=== PATIENT | female | born 1935 | race Caucasian/White ===

== ENCOUNTER 2019-02-13 00:19 | Outpatient (CLI) | payer MEDICARE, OTHER, SELFPAY ==
--- NOTE | 2019-02-13 14:00 | DI.US_ITS ---
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 On the right, there appears to be an internal carotid artery occlusion at the bifurcation. High velocity flow noted in external carotid artery. On the left, there is increased velocity at the distal internal carotid artery consistent with 50-60% luminal diameter stenosis. There is bilateral antegrade vertebral flow. CONCLUSION: Findings consistent with complete occlusion, right ICA, at its origin. A 50-60% luminal diameter stenosis, left ICA.
--- NOTE | 2019-02-13 14:15 | MERGE_ITS ---
*[facility]* *[facility]* [address] [place] [address] Date of study: 02/13/2019 Transthoracic Echocardiography M-mode, complete 2D, complete spectral Doppler, and color Doppler *STUDY CONCLUSIONS* Summary: 1. Left ventricle: The cavity size was normal. Wall thickness was increased in a pattern of moderate LVH. There was moderate asymmetric hypertrophy of the septum. Systolic function was normal. The estimated ejection fraction was 60-65%. There was no dynamic obstruction. Wall motion was normal; there were no regional wall motion abnormalities. Findings consistent with diastolic dysfunction. 2. Aortic valve: There was moderate stenosis. There was mild regurgitation. Peak velocity (S): 3.4m/sec. Mean gradient (S): 26.2mm Hg. Valve area (VTI): 1.4cm^2. 3. Mitral valve: Severely calcified annulus. Moderately thickened leaflets. Mobility was restricted. The findings are consistent with mild stenosis. Mean gradient (D): 4.5mm Hg at 70 bpm.. 4. Right ventricle: The cavity size was normal. Wall thickness was normal. Systolic function was normal. 5. Tricuspid valve: There was mild-moderate regurgitation. 6. Pulmonary arteries: Pulmonary systolic pressure was moderately increased, in the range of 45mm Hg to 50mm Hg. *PATIENT PRESENTATION* Height: 157.5cm ((62in) ) S/D Pressure: 193 / 82 Weight: 93.9kg ((206.6lb) ) BSA: 2.07m^2 Test start time: 02:30 PM. Test stop time: 03:30 PM. PERFORMING Unknown PERFORMING 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 This study was interpreted by [facility]. Pertinent images and digital data are archived for permanent storage and are available for subsequent review. No prior study was available for comparison. Study status: Routine. Transthoracic echocardiography. M-mode, complete 2D, complete spectral Doppler, and color Doppler. A Transthoracic Echocardiogram was performed. Scanning was performed from the parasternal, apical, subcostal, and suprasternal notch acoustic windows. Images were obtained using an [id number] cardiac ultrasound machine. Image quality was adequate. Study completion: The patient tolerated the procedure well. There were no complications. History: PMH: Hypertensive disorder i10. *CARDIAC ANATOMY* Left ventricle: The cavity size was normal. Wall thickness was increased in a pattern of moderate LVH. There was moderate asymmetric hypertrophy of the septum. Systolic function was normal. The estimated ejection fraction was 60-65%. There was no dynamic obstruction. Wall motion was normal; there were no regional wall motion abnormalities. Findings consistent with diastolic dysfunction. Aortic valve: Trileaflet; moderately thickened, moderately calcified leaflets. Valve mobility was restricted. Doppler: There was moderate stenosis. There was mild regurgitation. VTI ratio of LVOT to aortic valve: 0.5. Valve area (VTI): 1.4cm^2. Indexed valve area (VTI): 0.7cm^2/m^2. Peak velocity ratio of LVOT to aortic valve: 0.42. Valve area (Vmax): 1.1cm^2. Indexed valve area (Vmax): 0.5cm^2/m^2. Mean velocity ratio of LVOT to aortic valve: 0.48. Valve area (Vmean): 1.3cm^2. Indexed valve area (Vmean): 0.6cm^2/m^2. Mean gradient (S): 26.2mm Hg. Peak gradient (S): 47.3mm Hg. Aorta: Aortic root: The aortic root was normal in size. Ascending aorta: The ascending aorta was normal in size. Mitral valve: Severely calcified annulus. Moderately thickened leaflets. Mobility was restricted. Doppler: The findings are consistent with mild stenosis. There was trivial regurgitation. Valve area by pressure half-time: 2.5cm^2. Indexed valve area by pressure half-time: 1.2cm^2/m^2. Mean gradient (D): 4.5mm Hg at 70 bpm.. Left atrium: The atrium was normal in size. Right ventricle: The cavity size was normal. Wall thickness was normal. Systolic function was normal. Pulmonic valve: Structurally normal valve. Doppler: Transvalvular velocity was within the normal range. There was no evidence for stenosis. There was trivial regurgitation. Tricuspid valve: Structurally normal valve. Doppler: Transvalvular velocity was within the normal range. There was no evidence for stenosis. There was mild-moderate regurgitation. Pulmonary artery: Pulmonary systolic pressure was moderately increased, in the range of 45mm Hg to 50mm Hg. Right atrium: The atrium was normal in size. Pericardium: There was no pericardial effusion. Systemic veins: Inferior vena cava: Well visualized. The vessel was patent and normal in size. The respirophasic diameter changes were in the normal range (greater than or equal to 50%). Baseline ECG: Normal sinus rhythm. Measurements Left ventricle Value Reference LV ID, ED, PLAX 4.6 cm 3.5 - 6.0 LV ID, ES, PLAX 2.5 cm 2.1 - 4.0 LV PW thickness, ED, PLAX 1.2 cm LV end-diastolic volume, 1-p A2C 71 ml LV ejection fraction, 1-p A2C 66 % LV end-diastolic volume, 1-p A4C 68 ml LV ejection fraction, 1-p A4C 68 % LV e', lateral 0.055 m/sec LV E/e', lateral 19 LV e', medial 0.043 m/sec LV E/e', medial 24 LV e', average 0.049 m/sec LV E/e', average 21 Ventricular septum Value Reference IVS thickness, ED, PLAX 1.5 cm LVOT Value Reference LVOT ID, A-P 1.9 cm LVOT area 2.7 cm^2 LVOT peak velocity, S 1.43 m/sec LVOT mean velocity, S 1.18 m/sec LVOT VTI, S 39.2 cm LVOT peak gradient, S 8.2 mm Hg LVOT mean gradient, S 5.9 mm Hg Stroke volume (SV), LVOT DP 107 ml Stroke index (SV/bsa), LVOT DP 52 ml/m^2 Aortic valve Value Reference Aortic valve peak velocity, S 3.4 m/sec Aortic valve mean velocity, S 2.43 m/sec Aortic valve VTI, S 78.0 cm Aortic mean gradient, S 26.2 mm Hg Aortic peak gradient, S 47.3 mm Hg VTI ratio, LVOT/AV 0.5 Aortic valve area, VTI 1.4 cm^2 Velocity ratio, peak, LVOT/AV 0.42 Aortic valve area, peak velocity 1.1 cm^2 Velocity ratio, mean, LVOT/AV 0.48 Aortic valve area, mean velocity 1.3 cm^2 Aortic valve area/bsa, mean velocity 0.6 cm^2/m^2 Aortic regurg deceleration 421 cm/s^2 Aortic regurg pressure half-time 287 ms Aorta Value Reference Aortic root ID, ED 2.6 cm Ascending aorta ID, A-P, S 3.1 cm Left atrium Value Reference LA ID, A-P, ES 4.3 cm LA ID/bsa, A-P 2.1 cm/m^2 <=2.2 LA area, ES, A4C 17.9 cm^2 8.8 - 23.4 LA volume/bsa, ES, 1-p A4C 26 ml/m^2 LA/aortic root ratio 1.68 Mitral valve Value Reference Mitral E-wave peak velocity 1.03 m/sec Mitral A-wave peak velocity 1.81 m/sec Mitral deceleration time (H) 299 ms 150 - 230 Mitral pressure half-time 87 ms Mitral mean gradient, D 4.5 mm Hg Mitral E/A ratio, peak 0.57 Mitral valve area, PHT, DP 2.5 cm^2 Pulmonary veins Value Reference Pulmonary vein peak velocity, S 0.68 m/sec Pulmonary vein peak velocity, D 0.36 m/sec Pulmonary vein velocity ratio, peak, 1.91 S/D Pulmonary vein A-wave reversal peak 0.4 m/sec velocity Pulmonary vein A-wave reversal 119 ms duration Tricuspid valve Value Reference Tricuspid regurg peak velocity 3.2 m/sec Tricuspid peak RV-RA gradient 42 mm Hg Right atrium Value Reference RA area, ES, A4C 11.9 cm^2 8.3 - 19.5 Legend: (L) and (H) wally values outside specified reference range. I have personally reviewed the images and have reviewed and edited the reported findings. Electronically signed by Matt Mojica 02/13/2019 16:45
== END 2019-02-13 00:39 ==
PROVIDERS: PCP Nurse Practitioner Family; Visit Provider Nurse Practitioner Family
DX: I65.21 Occlusion and stenosis of right carotid artery (principal); I35.2 Nonrheumatic aortic (valve) stenosis with insufficiency; I07.2 Rheumatic tricuspid stenosis and insufficiency; I08.2 Rheumatic disorders of both aortic and tricuspid valves; I49.1 Atrial premature depolarization; I47.1 Supraventricular tachycardia; I49.3 Ventricular premature depolarization
CPT/HCPCS: 93306; 93225; 93880

== ENCOUNTER 2019-02-16 16:53 | Outpatient (CLI) | payer MEDICARE, OTHER, SELFPAY ==
--- NOTE | 2019-02-19 10:23 | HOLTER_ITS ---
DATE OF DICTATION: February 19, 2019 HOLTER MONITOR REPORT 48-HOUR STUDY Baseline rhythm sinus. Rare single PAC. Single burst of SVT, 3-beat duration at 135 bpm. Rare single PVC. No VT. Nocturnal heart rates as low as 55-60 bpm, sinus bradycardia. SYMPTOMS: Foot pain noted twice during sinus rhythm 76 bpm. Average heart rate 71 bpm. MH/dml D/
== END 2019-02-16 17:13 ==
PROVIDERS: PCP Nurse Practitioner Family; Visit Provider Nurse Practitioner Family
DX: I49.1 Atrial premature depolarization (principal); I47.1 Supraventricular tachycardia; I49.3 Ventricular premature depolarization
CPT/HCPCS: 93226

== ENCOUNTER 2019-02-19 08:55 | Outpatient (CLI) | payer MEDICARE, OTHER, SELFPAY | END 2019-02-19 09:15 | PROVIDERS: PCP Nurse Practitioner Family; Referring Provider Nurse Practitioner Family; Visit Provider Internal Medicine Interventional Cardiology | DX: I49.1 Atrial premature depolarization (principal); I47.1 Supraventricular tachycardia; I49.3 Ventricular premature depolarization | CPT/HCPCS: 93227 ==

== ENCOUNTER 2020-08-26 00:46 | Outpatient (CLI) | payer MEDICARE, OTHER, SELFPAY ==
--- NOTE | 2020-08-26 | DI.US_ITS ---
APPROVED REPORT EXAM: Comprehensive 2D, Doppler, and color-flow Echocardiogram Patient Location: Out-Patient Pastry Finisher: Joanne Hill RDCS (AE) Indications: Aortic Stenosis Other Information Study Quality: Adequate Conclusion Mild concentric left ventricular hypertrophy. Estimated ejection fraction is 55 to 60%. There are n o segmental wall motion abnormalities Normal right ventricular size and systolic function Normal right and left atrial size The aortic valve is sclerotic and trileaflet. There is mild to moderate aortic stenosis. Peak gradi ent is 40, mean gradient 23. Calculated aortic valve area is 1.55 cm???. Trace aortic regurgitation Moderate mitral annular calcification. Thickened mitral leaflets. Mild mitral stenosis and regurgit ation Structurally normal tricuspid and pulmonic valves Trace to mild tricuspid and pulmonic regurgitation Mild pulmonary hypertension, RVSP 37 mmHg Compared to previous study from January 2019, the degree of aortic stenosis appears similar. Right dinorah tricular systolic pressure and degree of tricuspid regurgitation have decreased Wall motion Left Ventricle The left ventricle is normal size. The left ventricular systolic function is normal. The left ventric ular ejection fraction is within the normal range. Mild concentric left ventricular hypertrophy. Ther e is normal LV segmental wall motion. There is no ventricular septal defect visualized. LVEF is 55-60 %. Right Ventricle The right ventricle is normal size. The right ventricular systolic function is normal. The RVSP is 37 .0 mmHg. Atria The left atrium size is normal. The right atrium size is normal. The interatrial septum is intact wit h no evidence for an atrial septal defect. Aortic Valve Moderate aortic valve sclerosis. Aortic valve is calcified. Aortic valve is trileaflet. Mild to moder ate aortic stenosis. Peak aortic valve gradient is 40.6mmHg. Highest mean aortic valve gradient is 23 .5mmHg. Calculated MISSY by the continuity equation is 1.55cm2. Trace aortic regurgitation. Mitral Valve Moderate mitral annular calcification. Calcified mitral apparatus causing mitral stenosis. Mild annalee l stenosis. Mild mitral regurgitation. Tricuspid Valve The tricuspid valve is normal in structure. There is no tricuspid valve stenosis. Trace tricuspid reg urgitation. Pulmonic Valve The pulmonary valve is normal in structure. There is no pulmonic valvular stenosis. Trace to mild pul gaye regurgitation. Great Vessels The aortic root is normal in size. The ascending aorta is mildly dilated. IVC is normal in size and c ollapses >50% with inspiration. Pericardium There is no pericardial effusion. 2D Dimensions IVSD d PLAX 1.27 cm F: 0.6-1.0 LV Vol A2C d MOD 99.7 mL LVPW d PLAX 1.27 cm F: 0.6 - 1.0 LV Vol A4C d MOD 87.4 mL LVID d PLAX 4.77 cm F: 3.8 - 5.2 LA vol/ BSA A2C s A-L 42.3 mL/m2 LVDs 3.45 cm F: 2.2 - 3.5 LA vol/ BSA A4C s A-L 32.0 mL/m2 Ao Root d 2.38 cm F: 2.7 - 3.3 LA Vol/ BSA Biplane s A-L 37.2 mL/m2 RA Area A4C 15.03 cm2 LA Area A4C s MOD 19.50 cm2 RA Vol/ BSA A4C s A-L 21.9 mL/m2 LA Area A2C s MOD 22.68 cm2 Ao Asc Diam d 3.41 cm F: 2.3 - 3.1 LV EF A4C MOD 52.3 % LV EF Teichholz 52.4 % LV EF A2C MOD 50.1 % LVEF (Purdy's) 52.32 % F: 54 - 74 LV EF Biplane MOD 52.3 % LV Volume 74.23 mL F: 46 - 106 SV 50.20 mL LV Volume Index 40.78 mL/m2 F: 29 - 61 SV Index 27.49 mL/m2 LV Vol Biplane MOD 95.9 mL FS 26.85 % M-Mode TAPSE 2.29 cm (M/F) >1.7 LV Diastology MV E' medial 0.050 (>0.07 m/s) E/A Ratio 0.6 LV E/e MED 16.90 (<14) MV E Vmax 0.85 (0.4-1.3 m/s) MV E' lateral 0.067 (>0.1 m/s) MV A Vmax 1.45 (0.4-1.3 m/s) LV E/e LAT 12.60 (<14) MV E/A Ratio 0.57 MV E/E' medial 16.91 MV E/E' lateral 12.61 Aortic Valve LVOT Area 2.78 cm2 AoV Area Vmax 1.55 cm2 LVOT Vmax 1.78 m/s AoV Area/ BSA (Vmax) 0.85 cm2/m2 LVOT Mean Miguel. 1.26 m/s MISSY Mean Miguel. 1.53 cm2 LVOT Peak Grad 12.6 mmHg MISSY Mean Miguel. Index 0.84 cm2/m2 LVOT Mean Grad 7.2 mmHg AR DT 2247 msec LVOT VTI 0.451 m AR PHT 652 msec LVOT Diam s 1.85 cm AoV Vmax 3.18 m/s Velocity Ratio 0.55 AoV Mean Miguel. 2.29 m/s AoV Peak Grad 40.6 mmHg LVOT SV 125.43 mL AoV Mean Grad 23.5 mmHg AoV VTI 0.748 m AoV Area VTI 1.68 cm2 AoV Area/ BSA (VTI) 0.92 cm/m2 Mitral Valve MV DT 354 (160-240 msec) MV PHT 103 msec MV Area PHT 2.14 cm2 MV VTI 0.425 m MV VTI Annulus 0.410 m MV Area VTI 2.85 (4.0-6.0 cm2) Pulmonary Valve PV Vmax 1.00 (0.5-1.5 m/s) RVOT Peak Gr. 1.79 mmHg PV Peak Grad 4.0 mmHg RVOT Mean Gr. 1.00 mmHg PV Mean Grad 2.0 mmHg RVOT VTI 0.167 m PV VTI 0.239 m RVOT Vmax 0.67 m/s Tricuspid Valve TR Peak Grad 34.0 mmHg TR Vmax 2.92 m/s RA Pressure 3.00 mmHg RVSP (TR) 37.0 mmHg
== END 2020-08-26 01:06 ==
PROVIDERS: PCP Nurse Practitioner Family; Visit Provider Nurse Practitioner Family
DX: I08.3 Combined rheumatic disorders of mitral, aortic and tricuspid valves
CPT/HCPCS: 93306

== ENCOUNTER 2021-03-21 09:43 | Emergency (ER) | payer MEDICARE, OTHER, SELFPAY ==
[2021-03-21 09:49] VITALS: BP 177/75; PULSE 71; RESP 16; TEMP 36.3; O2SAT 95
--- NOTE | 2021-03-21 10:02 | ED.GENADUL_ITS ---
Discharge Plan Disposition Patient Disposition: HOME Condition: Stable Discharge Details Clinical Impression: Rash, Hood palsy Primary Care Provider: Emma Iniguez ED Provider: Wang Sanders Home Meds and New Rx's Prescriptions: New prednisone 20 mg tablet 60 mg PO DAILY 4 Days Qty: 12 RF: 0 doxycycline hyclate 100 mg tablet 100 mg PO BID Qty: 28 RF: 0 No Action multivitamin 1 EACH tablet 1 tab PO DIRECTED RF: 0 metoprolol tartrate 100 MG tablet 200 mg PO DIRECTED RF: 0 enalapril maleate 20 MG tablet 40 mg PO DIRECTED RF: 0 amlodipine 5 MG tablet 5 mg PO DAILY RF: 0 allopurinol 100 MG tablet 300 mg PO DAILY RF: 0 aspirin [Lo-Dose Aspirin] 81 MG tablet,delayed release (DR/EC) 81 mg PO DIRECTED RF: 0 indomethacin 50 MG capsule 50 mg PO DIRECTED PRNRF: 0 ascorbic acid (vitamin C) [Vitamin C] 1,000 MG tablet 1,000 mg PO DAILY RF: 0 ibuprofen 200 MG tablet 600 mg PO Q8H PRN PRNRF: 0 acetaminophen 500 MG tablet 1,000 mg PO Q8H PRN PRN (Reason: Pain) Qty: 0 RF: 0 Discharge Instructions Instructions: Hood Palsy (ED) Additional Instructions: Follow up with your primary care provider this week if you feel more ill, have weakness or fevers return to the emergency department Medical Decision Making 85 yo female with hx of htn, comes in with several days of redness and a lesion on right anterior lower leg. Denies any fevers or pain. She has 3cm of erythema on the anterior lower mid leg and in the center is an ulceration. No drainage or fluctuance, no crepitus and normal sensation. Appears on exam to be possible cellulitis and possible bulls eye lesion though she denies any known tick or insect bite. She has no body aches or fevers. She also notes on questioning that for the past 3 days she has had facial droop. She does have right sided forehead and lower half of face paralyisis. She is not able to fully close the right eye. She has no other weakness and normal peripheral sensation and speech is normal as well, EOMI and perrl. Given forehead is not spared and no other deficits on exam doubt cva and seems like a peripheral lesion causing bells palsy. Will start on doxycycline for the possible cellulitis and also to cover for lyme disease. She was advised to follow up with her pcp and return precautions given Differential Diagnosis Differential Diagnosis: bells palsy, cellulitis, lyme HPI General Mode of arrival: ambulatory . Date/Time Provider Initiated Documentation: 03/21/21 09:44 . Limitations to Documentation: no limitations . Information obtained by: patient . History of Present Illness 85 year old F presents to the emergency department with the chief complaint of rash on right leg, described as mild, Patient started experiencing this day(s) (2) and it has been constant. No relieving factors improve symptom(s), No e xacerbating factors reported . Patient did receive the following treatments prior to arrival, none Related Data Home Medications Medication Instructions Recorded Confirmed allopurinol 300 mg PO DAILY 10/03/15 04/29/18 amlodipine 5 mg PO DAILY 10/03/15 04/29/18 aspirin [Lo-Dose Aspirin] 81 mg PO DIRECTED 10/03/15 04/29/18 enalapril maleate 40 mg PO DIRECTED 10/03/15 04/29/18 indomethacin 50 mg PO DIRECTED PRN 10/03/15 04/29/18 metoprolol tartrate 200 mg PO DIRECTED 10/03/15 04/29/18 multivitamin 1 tab PO DIRECTED 10/03/15 04/29/18 acetaminophen 1,000 mg PO Q8H PRN PRN #0 04/29/18 04/29/18 ascorbic acid (vitamin C) [Vitamin 1,000 mg PO DAILY 04/29/18 04/29/18 C] ibuprofen 600 mg PO Q8H PRN PRN 04/29/18 04/29/18 doxycycline hyclate 100 mg PO BID #28 tab 03/21/21 prednisone 60 mg PO DAILY 4 Days #12 tab 03/21/21 Previous Rx's Medication Instructions Recorded acetaminophen 1,000 mg PO Q8H PRN PRN #0 04/29/18 doxycycline hyclate 100 mg PO BID #28 tab 03/21/21 prednisone 60 mg PO DAILY 4 Days #12 tab 03/21/21 Allergies Allergy/AdvReac Type Severity Reaction Status Date / Time No Known Allergies Allergy Unverified 03/21/21 10:10 General Stated Complaint: RashLesion ROMAN: 3 Review of Systems All systems reviewed & are unremarkable except as noted in HPI and below Constitutional Constitutional: Denies chills, Denies fever(s) and Denies weakness ENT Ears, Nose, Mouth, and Throat: Denies change in voice Cardiovascular Cardiovascular: Denies chest pain and Denies dyspnea Respiratory Respiratory: Denies cough and Denies dyspnea Gastrointestinal Gastrointestinal: Denies abdominal pain, Denies nausea and Denies vomiting Neurologic Neurologic: Denies weakness Psychiatric Psychiatric: Denies depression [facility] Social History Smoking/Tobacco Use Status: Former Tobacco Use Smoking risk assessment performed?: Yes Drug use: Never Do you feel safe in your relationship?: Yes Exam Const General: no acute distress Orientation: alert HENMT Head: normal to inspection Ears: external ears normal General nose exam: external nose normal Mouth: moist mucous membranes Eyes General: appearance normal, both eyes and all related structures Neck Neck: normal visual inspection Resp Effort & Inspection: normal respiratory effort and able to speak in complete sentences Cardio Rate: regular rate Skin General skin exam: elasticity normal Neuro General: patient alert and patient oriented x3 Extrem General: normal to inspection Psych Mental Status: mental status grossly normal Course Vital Signs Vital signs: Vital Signs Temperature 36.3 C L 03/21/21 09:49 Pulse 71 03/21/21 09:49 Respiratory Rate 16 03/21/21 09:49 Blood Pressure 177/75 H 03/21/21 09:49 Pulse Oximetry 95 03/21/21 09:49 Temperature 36.3 C L 03/21/21 09:49 Temperature Source Skin 03/21/21 09:49 Pulse 71 03/21/21 09:49 Respiratory Rate 16 03/21/21 09:49 Blood Pressure 177/75 H 03/21/21 09:49 Pulse Oximetry 95 03/21/21 09:49 Oxygen Delivery Method Room Air 03/21/21 09:49 Oxygen Flow Rate 0 03/21/21 09:49 Pain Level 0 03/21/21 09:49
[2021-03-21] MEDS: predniSONE 20 MG TAB 60 MG PO (10:19)
[2021-03-21] MEDS: Doxycycline Hyclate 100 MG CAP PO (10:19)
[2021-03-23 11:18] LABS: Lyme Ab w Rflx to Lyme Confirm Negative (Negative)
[2021-03-24 19:51] LABS: Anaplasma phagocytophilum Negative (Negative); B. miyamotoi PCR Negative (Negative); Babesia divergens/MO-1 Negative (Negative); Babesia duncani Negative (Negative); Babesia microti Negative (Negative); Ehrlichia chaffeensis Negative (Negative); Ehrlichia ewingii/canis Negative (Negative); Ehrlichia muris eauclairensis Negative (Negative)
== END 2021-03-21 10:24 | disposition home or self-care (01) ==
PROVIDERS: Emergency Provider Emergency Medicine; PCP Nurse Practitioner Family
DX: G51.0 Bell's palsy (principal); R21 Rash and other nonspecific skin eruption
CPT/HCPCS: 36415; 87798; 99283; 86618; J7512

== ENCOUNTER 2021-09-07 11:09 | Emergency (ER) | payer MEDICARE, OTHER, SELFPAY ==
[2021-09-07 11:22] VITALS: BP 189/78; PULSE 68; RESP 16; TEMP 36.9; O2SAT 97
--- NOTE | 2021-09-07 12:15 | DI.RAD_ITS ---
Exam(s) XR TIB/FIB RT EXAM: XR TIB/FIB RT CLINICAL HISTORY: OPen wound, R/O gas, osteomyelitis. TECHNIQUE: 2D digital imaging was performed. COMPARISON: No exams were available for comparison FINDINGS: No evidence of acute fracture. Some vascular calcification is noted in the popliteal artery and runo ff vessels of the calf. No radiographic evidence of osteomyelitis. No ominous osseous lesions. IMPRESSION: DATA REPOSITORY: RADIATION DOSE DELIVERED:
--- NOTE | 2021-09-07 12:15 | W.ED.GENAD ---
Discharge Plan Disposition Patient Disposition: HOME Condition: Stable Discharge Details Clinical Impression: Non-healing wound of right lower extremity Primary Care Provider: Emma Iniguez ED Provider: Ronda Holder Home Meds and New Rx's Prescriptions: Continued multivitamin 1 EACH tablet 1 tab PO DIRECTED RF: 0 metoprolol tartrate 100 MG tablet 200 mg PO DIRECTED RF: 0 enalapril maleate 20 MG tablet 40 mg PO DIRECTED RF: 0 amlodipine 5 MG tablet 5 mg PO DAILY RF: 0 aspirin [Lo-Dose Aspirin] 81 MG tablet,delayed release (DR/EC) 81 mg PO DIRECTED RF: 0 acetaminophen 500 MG tablet 1,000 mg PO Q8H PRN PRN (Reason: Pain) Qty: 0 RF: 0 No Action allopurinol 100 MG tablet 300 mg PO DAILY RF: 0 indomethacin 50 MG capsule 50 mg PO DIRECTED PRNRF: 0 doxycycline hyclate 100 mg tablet 100 mg PO BID Qty: 28 RF: 0 ascorbic acid (vitamin C) [Vitamin C] 1,000 MG tablet 1,000 mg PO DAILY RF: 0 ibuprofen 200 MG tablet 600 mg PO Q8H PRN PRNRF: 0 Discharge Instructions Instructions: Chronic Wounds (ED) Additional Instructions: Change dressing daily. Keep clean and dry. Practice good hand hygiene. Follow-up with general surgery in the next 3 to 5 days in the office to discuss a possible reji dressing or wound VAC. Follow up with General Surgery in 3-5 days. Return to ED sooner if any worsening or concerns. Increase oral fluids. Referrals: Rosi Jimenez DO [OSTEOPATHIC DOCTOR] - Jacki Riley DO [ NON-[facility] STAFF PHYSICIAN] - 3 days Discharge Data Discharge Date/Time-TO BE ENTERED AT DEPARTURE: 09/07/21 13:52 Medical Decision Making 85-year-old female presents to the ER with chief complaint of right calf wound which has been nonhealing for the last year to year and a half. She reports originally she was bit by a dog. She reports some surrounding tenderness and has been draining some yellow purulent drainage. She reports having it drained twice by PCP in the ER last in March. She denies being a diabetic. Does appear to have peripheral vascular disease. She denies any fever chills, nausea vomiting diarrhea chest shortness of breath. She does have medical history of gout, cholesterol. She reports being seen at [facility] previously. She denies ever having been seen in wound clinic or by software development specialist. No wound care nurse in-house today. TIB FiB xray ordered, wound culture ordered. Will consult with general surgery. 1251: Surgery paged. 1252: Spoke with Dr. Pope, she does not recommend wound culture, she does recommend follow up in clinic within next 3-5 days for further eval and treatment. XR TIB/FIB RT EXAM: XR TIB/FIB RT CLINICAL HISTORY: OPen wound, R/O gas, osteomyelitis. TECHNIQUE: 2D digital imaging was performed. COMPARISON: No exams were available for comparison FINDINGS: No evidence of acute fracture. Some vascular calcification is noted in the popliteal artery and runoff vessels of the calf. No radiographic evidence of osteomyelitis. No ominous osseous lesions. I did discuss plan of care with patient. Wound culture is pending at this time. Recommend further wound care. Patient and verbalized understanding. Patient placed on care management list to facilitate general surgery follow-up. Due to change dressing daily keep clean and dry. Discussed return instructions, verbalized understanding. This text was generated using Dashbookation system, please disregard any oddities of phrase or misspellings. HPI General Mode of arrival: ambulatory. Date/Time Provider Initiated Documentation: 09/07/21 12:05. Limitations to Documentation: physical limitation ([id number]). Information obtained by: patient, family, RN notes reviewed and old records reviewed. HPI Narrative: 85-year-old female presents to the ER with chief complaint of right calf wound which has been nonhealing for the last year to year and a half. She reports originally she was bit by a dog. She reports some surrounding tenderness and has been draining some yellow purulent drainage. She reports having it drained twice by PCP in the ER last in March. She denies being a diabetic. Does appear to have peripheral vascular disease. She denies any fever chills, nausea vomiting diarrhea chest shortness of breath. She does have medical history of gout, cholesterol. She reports being seen at [facility] previously. She denies ever having been seen in wound clinic or by software development specialist. Related Data Home Medications Medication Instructions Recorded Confirmed allopurinol 300 mg PO DAILY 10/03/15 09/07/21 amlodipine 5 mg PO DAILY 10/03/15 09/07/21 aspirin [Lo-Dose Aspirin] 81 mg PO DIRECTED 10/03/15 09/07/21 enalapril maleate 40 mg PO DIRECTED 10/03/15 09/07/21 indomethacin 50 mg PO DIRECTED PRN 10/03/15 03/21/21 metoprolol tartrate 200 mg PO DIRECTED 10/03/15 09/07/21 multivitamin 1 tab PO DIRECTED 10/03/15 09/07/21 acetaminophen 1,000 mg PO Q8H PRN PRN #0 04/29/18 09/07/21 ascorbic acid (vitamin C) [Vitamin 1,000 mg PO DAILY 04/29/18 09/07/21 C] ibuprofen 600 mg PO Q8H PRN PRN 04/29/18 03/21/21 doxycycline hyclate 100 mg PO BID #28 tab 03/21/21 Previous Rx's Medication Instructions Recorded acetaminophen 1,000 mg PO Q8H PRN PRN #0 04/29/18 doxycycline hyclate 100 mg PO BID #28 tab 03/21/21 Allergies Allergy/AdvReac Type Severity Reaction Status Date / Time gabapentin AdvReac Unverified 09/07/21 11:33 General Stated Complaint: Laceration ROMAN: 3 Review of Systems All systems reviewed & are unremarkable except as noted in HPI and below Musculoskeletal Musculoskeletal: Reports as per HPI and Reports other (Right calf chronic open non-healing wound) PFSH Social History Smoking/Tobacco Use Status: Former Tobacco Use Smoking risk assessment performed?: Yes Alcohol Intake: never Drug use: Never Substance use type: does not use Do you feel safe at home: Yes Do you feel safe in your relationship?: Yes Exam Extrem Right lower extremity: lower leg Details: no edema and ecchymosis (Appears Chronic PVD) mid lower leg ; no erythema Upper/lower leg/hip images: 1. 1cm x 5cm open wound with yellow purulent drainage. Course Vital Signs Vital signs: Vital Signs Temperature 36.9 C 09/07/21 11:22 Pulse 68 09/07/21 11:22 Respiratory Rate 16 09/07/21 11:22 Blood Pressure 189/78 H 09/07/21 11:22 Pulse Oximetry 97 09/07/21 11:22 Temperature 36.9 C 09/07/21 11:22 Temperature Source Temporal Artery Scan 09/07/21 11:22 Pulse 68 09/07/21 11:22 Respiratory Rate 16 09/07/21 11:22 Respiratory Effort 09/07/21 11:29 Blood Pressure 189/78 H 09/07/21 11:22 Blood Pressure Position Sitting 09/07/21 11:22 Pulse Oximetry 97 09/07/21 11:22 Oxygen Delivery Method Room Air 09/07/21 11:22 Oxygen Flow Rate 0 09/07/21 11:22 Pain Level 0 09/07/21 11:22
--- NOTE | 2021-09-07 16:57 | NUR.NOTE ---
PT REFERRAL SENT TO SURGERY
== END 2021-09-07 13:52 | disposition home or self-care (01) ==
PROVIDERS: Emergency Provider Registered Nurse Emergency; PCP Nurse Practitioner Family
DX: S81.851D Open bite, right lower leg, subsequent encounter; W54.0XXD Bitten by dog, subsequent encounter; B95.61 Methicillin susceptible Staphylococcus aureus infection as the cause of diseases classified elsewhere
CPT/HCPCS: 87077; 99283; 73590; 87070; 87186; 87205

== ENCOUNTER → 2021-09-11 08:33 | Outpatient (BNVA) | payer MEDICARE, OTHER, SELFPAY | PROVIDERS: PCP Nurse Practitioner Family; Referring Provider Nurse Practitioner Family; Visit Provider Physical Therapy Assistant | DX: S81.851A Open bite, right lower leg, initial encounter (principal); W54.0XXA Bitten by dog, initial encounter; C44.519 Basal cell carcinoma of skin of other part of trunk; I10 Essential (primary) hypertension | CPT/HCPCS: 11104; 99214 ==

== ENCOUNTER 2021-09-11 12:38 | Outpatient (REF) | payer MEDICARE, OTHER, SELFPAY ==
--- NOTE | 2021-09-11 09:48 | SKI_PTH ---
PATIENT: Neris Avila LOC: [facility] U#:[id number] AGE/SX: 85/F ROOM: RE09/11/[address]: TONIA Payne : 1935 BED: DIS: 09/11/2021 SPEC #: [id number] RECD: 09/11/21 12:40 STATUS: BRIAN SHIPLEY #: [id number] VINCENZO: 09/11/21 09:[address]: Rosa Brewer DEPT: Surgical Specimen RECD BY: Rosie Nguyen ENTERED: 09/11/21 12:42 SP TYPE: JUANJOSE RUELAS DR: Emma Iniguez Tissues: 1 - SKIN BIOPSY(SHAVE/PUNCH) 2 - SKIN BIOPSY(SHAVE/PUNCH) 3 - SKIN BIOPSY(SHAVE/PUNCH) 4 - SKIN BIOPSY(SHAVE/PUNCH) 5 - SKIN BIOPSY(SHAVE/PUNCH) Procedures: SKIN LEVEL 4 Comments: [id number]
== END 2021-09-11 12:39 | disposition home or self-care (01) ==
LOC: LBN 12:38
PROVIDERS: PCP Nurse Practitioner Family; Visit Provider Physical Therapy Assistant
DX: C44.519 Basal cell carcinoma of skin of other part of trunk (principal)
CPT/HCPCS: 88305

== ENCOUNTER → 2021-09-15 14:26 | Outpatient (BNVA) | payer MEDICARE, OTHER, SELFPAY ==
--- NOTE | 2021-09-18 13:58 | ANES.CON_ITS ---
General Date of Service Date of Service: 09/18/21 Reason for Consult Requesting Provider: Rosa Brewer How Consult Conducted:: Chart Review Reason for Consult:: Anesthesia preop for excision of large basal cell carcinoma on the patients flank. 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 Has had followup yearly with [facility] vascular service with recent carotid duplex with no change. No symptoms of stroke or deficits noted. Patient is actively managed by [facility] vascular and PCP. I would like to see her blood pressure a little better controlled overall (most recent visit with systolics in the 190s) Discussed patient and plan with Liss Bautista CRNA and Vera Bowman CRNA. Agreed plan of erector spinae block on side of basal cell carcinoma and light MAC if patient is to proceed here, will need to discuss with patient. Patient reported [place] and TONIA Joyce does feel that an in person evaluation and discussion of plan this coming Tuesday (09/25/2021) would be appropriate. Height: 5 ft 2 in Weight: 90.7 kg Body Mass Index (BMI): 36.6 Meds Allergies and Home Medications Allergies Allergy/AdvReac Type Severity Reaction Status Date / Time gabapentin AdvReac Unverified 09/18/21 08:49 Home Medication Medication Instructions Recorded allopurinol 300 mg PO DAILY 10/03/15 amlodipine 5 mg PO DAILY 10/03/15 aspirin [Lo-Dose Aspirin] 81 mg PO DIRECTED 10/03/15 enalapril maleate 40 mg PO DIRECTED 10/03/15 metoprolol tartrate 200 mg PO DIRECTED 10/03/15 multivitamin 1 tab PO DIRECTED 10/03/15 acetaminophen 1,000 mg PO Q8H PRN PRN #0 04/29/18 ascorbic acid (vitamin C) [Vitamin 1,000 mg PO DAILY 04/29/18 C] ibuprofen 600 mg PO Q8H PRN PRN 04/29/18 rosuvastatin 10 mg tablet 10 mg PO DAILY 09/11/21 PFSH Active Problems Active Problems: Problem Status Onset Code Basal cell carcinoma (BCC) of back C44.519 Skin lesion of back L98.9 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 Non-healing wound of right lower extremity S81.801A Tobacco Smoking/Tobacco Use Status: Former Tobacco Use Alcohol Alcohol Intake: never Substance Use Substance use: Never Substance use type: does not use Vital Signs & Lab Results Point of Care Results Nursing Point of Care Results: 2 No Data to Display Lab Results Blood Type / Crossmatch: No Data to Display Complete Blood Count: No Data to Display Complete Metabolic Panel: No Data to Display Liver Function Panel: No Data to Display Coagulation Panel: No Data to Display Cardiac Panel: No Data to Display Arterial Blood Gas: No Data to Display Venous Blood Gas: No Data to Display Pancreas Panel: No Data to Display Thyroid Panel: No Data to Display Infectious Disease: No Data to Display Blood Cultures: No Data to Display Toxicology Panel: No Data to Display Imaging and Studies Imaging and Studies Echocardiogram Summary: 08/26/2020 Conclusion Mild concentric left ventricular hypertrophy. Estimated ejection fraction is 55 to 60%. There are no segmental wall motion abnormalities Normal right ventricular size and systolic function Normal right and left atrial size The aortic valve is sclerotic and trileaflet. There is mild to moderate aortic stenosis. Peak gradient is 40, mean gradient 23. Calculated aortic valve area is 1.55 cm???. Trace aortic regurgitation Moderate mitral annular calcification. Thickened mitral leaflets. Mild mitral stenosis and regurgitation Structurally normal tricuspid and pulmonic valves Trace to mild tricuspid and pulmonic regurgitation Mild pulmonary hypertension, RVSP 37 mmHg Compared to previous study from January 2019, the degree of aortic stenosis appears similar. 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 On the right, there appears to be an internal carotid artery occlusion at the bifurcation. High velocity flow noted in external carotid artery. On the left, there is increased velocity at the distal internal carotid artery consistent with 50-60% luminal diameter stenosis. There is bilateral antegrade vertebral flow. CONCLUSION: Findings consistent with complete occlusion, right ICA, at its origin. A 50-60% luminal diameter stenosis, left ICA. 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 Has had followup yearly with [facility] vascular service with recent carotid duplex with no change. No symptoms of stroke or deficits noted.
[2021-09-18 14:12] VITALS: BMI 36.6
== END ==
PROVIDERS: PCP Nurse Practitioner Family; Referring Provider Nurse Practitioner Family; Visit Provider Physical Therapy Assistant
DX: C44.519 Basal cell carcinoma of skin of other part of trunk (principal); S81.801D Unspecified open wound, right lower leg, subsequent encounter; X58.XXXD Exposure to other specified factors, subsequent encounter
CPT/HCPCS: 99213

== ENCOUNTER → 2021-09-18 08:42 | Outpatient (BNVA) | payer MEDICARE, OTHER, SELFPAY | PROVIDERS: PCP Nurse Practitioner Family; Referring Provider Nurse Practitioner Family; Visit Provider Physical Therapy Assistant | DX: S81.801D Unspecified open wound, right lower leg, subsequent encounter (principal); X58.XXXD Exposure to other specified factors, subsequent encounter; C44.519 Basal cell carcinoma of skin of other part of trunk | CPT/HCPCS: 99213 ==

== ENCOUNTER → 2021-09-25 08:20 | Outpatient (BNVA) | payer MEDICARE, OTHER, SELFPAY | PROVIDERS: PCP Nurse Practitioner Family; Referring Provider Nurse Practitioner Family; Visit Provider Physical Therapy Assistant | DX: S81.801D Unspecified open wound, right lower leg, subsequent encounter (principal); X58.XXXD Exposure to other specified factors, subsequent encounter | CPT/HCPCS: 97605; 99213 ==

== ENCOUNTER → 2021-10-02 13:56 | Outpatient (BNVA) | payer MEDICARE, OTHER, SELFPAY ==
--- NOTE | 2021-10-05 10:18 | ANES.CON_ITS ---
General Date of Service Date of Service: 10/02/21 Reason for Consult Requesting Provider: Rosa Brewer How Consult Conducted:: Seen in Office Reason for Consult:: Basal cell carcinoma on right flank. Hx of Pulm htn, aortic stenosis, right ICA occlusion, left ICA stenosis. Consult Recommendation after Review:: May proceed with anesthetic plan. Patient to have right lumbar erector spinae block preoperatively. Plan on propofol gtt and appropriate medications to maintain hemodynamic stability. Discussed risk with patient and at length; at high risk for stroke, high CV risk. Patient wants care here at [facility] and is aware of risk, wishes to proceed. Ion Ann and Angel Bautista aware of plan. Meds Allergies and Home Medications Allergies Allergy/AdvReac Type Severity Reaction Status Date / Time gabapentin AdvReac Severe Keep me Unverified 10/05/21 08:51 awake all night. Home Medication Medication Instructions Recorded allopurinol 300 mg PO DAILY 10/03/15 amlodipine 5 mg PO DAILY 10/03/15 aspirin [Lo-Dose Aspirin] 81 mg PO DIRECTED 10/03/15 enalapril maleate 40 mg PO DIRECTED 10/03/15 metoprolol tartrate 200 mg PO DIRECTED 10/03/15 multivitamin 1 tab PO DIRECTED 10/03/15 acetaminophen 1,000 mg PO Q8H PRN PRN #0 04/29/18 ascorbic acid (vitamin C) [Vitamin 1,000 mg PO DAILY 04/29/18 C] ibuprofen 600 mg PO Q8H PRN PRN 04/29/18 rosuvastatin 10 mg tablet 10 mg PO DAILY 09/11/21 PFSH Active Problems Active Problems: Problem Status Onset Code Basal cell carcinoma (BCC) of back C44.519 Skin lesion of back L98.9 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 Non-healing wound of right lower extremity S81.801A Medical History Active Problem List (Updated 09/15/21 @ 20:12 by TONIA Payne) Basal cell carcinoma (BCC) of back (Acute) Skin lesion of back (Acute) Rash (Acute) Hood palsy (Acute) Non-healing wound of right lower extremity (Acute) Tobacco Smoking/Tobacco Use Status: Former Tobacco Use Alcohol Alcohol Intake: never Substance Use Substance use: Never Substance use type: does not use Vital Signs & Lab Results Point of Care Results Nursing Point of Care Results: No Data to Display Lab Results Blood Type / Crossmatch: No Data to Display Complete Blood Count: No Data to Display Complete Metabolic Panel: No Data to Display Liver Function Panel: No Data to Display Coagulation Panel: No Data to Display Cardiac Panel: No Data to Display Arterial Blood Gas: No Data to Display Venous Blood Gas: No Data to Display Pancreas Panel: No Data to Display Thyroid Panel: No Data to Display Infectious Disease: No Data to Display Blood Cultures: No Data to Display Toxicology Panel: No Data to Display Imaging and Studies Imaging and Studies Echocardiogram Summary: 08/26/2020 Conclusion Mild concentric left ventricular hypertrophy. Estimated ejection fraction is 55 to 60%. There are no segmental wall motion abnormalities Normal right ventricular size and systolic function Normal right and left atrial size The aortic valve is sclerotic and trileaflet. There is mild to moderate aortic stenosis. Peak gradient is 40, mean gradient 23. Calculated aortic valve area is 1.55 cm???. Trace aortic regurgitation Moderate mitral annular calcification. Thickened mitral leaflets. Mild mitral stenosis and regurgitation Structurally normal tricuspid and pulmonic valves Trace to mild tricuspid and pulmonic regurgitation Mild pulmonary hypertension, RVSP 37 mmHg Compared to previous study from January 2019, the degree of aortic stenosis appears similar. 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 On the right, there appears to be an internal carotid artery occlusion at the bifurcation. High velocity flow noted in external carotid artery. On the left, there is increased velocity at the distal internal carotid artery consistent with 50-60% luminal diameter stenosis. There is bilateral antegrade vertebral flow. CONCLUSION: Findings consistent with complete occlusion, right ICA, at its origin. A 50-60% luminal diameter stenosis, left ICA. Anesthesia Assessment and Plan Anesthesia History Personal History: No History of Anesthesia Complications Family History: No Family History of Anesthesia Complications Exercise Tolerance Exercise Tolerance: Metabolic Equivalents<4 Pertinent Negatives Pertinent Negatives: No Major Pulmonary Symptoms or Complaints Airway Exam Mallampati Class: 3 Mouth Opening: Normal (> 3cm) Thyromental Distance: Greater than 3 cm Neck Range of Motion: Limited ROM (slight) Neck Circumference: Normal ASA Classification ASA Score: ASA 4 Emergency Case?: No Anesthesia Plan Resuscitation Status: Full Code Anesthesia Technique: General Anesthesia Airway Planned: Natural Airway Pain Management: Surgeon and patient request nerve block Monitors Used: Standard Monitors
== END ==
PROVIDERS: PCP Nurse Practitioner Family; Referring Provider Nurse Practitioner Family; Visit Provider Physical Therapy Assistant
DX: S81.801D Unspecified open wound, right lower leg, subsequent encounter (principal); X58.XXXD Exposure to other specified factors, subsequent encounter
CPT/HCPCS: 99213

== ENCOUNTER → 2021-10-05 08:41 | Outpatient (BNVA) | payer MEDICARE, OTHER, SELFPAY | PROVIDERS: PCP Nurse Practitioner Family; Referring Provider Nurse Practitioner Family; Visit Provider Physical Therapy Assistant | DX: S81.801D Unspecified open wound, right lower leg, subsequent encounter (principal); X58.XXXD Exposure to other specified factors, subsequent encounter | CPT/HCPCS: 97605; 99213 ==

== ENCOUNTER → 2021-10-09 13:41 | Outpatient (BNVA) | payer MEDICARE, OTHER, SELFPAY | PROVIDERS: PCP Nurse Practitioner Family; Referring Provider Nurse Practitioner Family; Visit Provider Physical Therapy Assistant | DX: C44.519 Basal cell carcinoma of skin of other part of trunk (principal) | CPT/HCPCS: 99213 ==

== ENCOUNTER → 2021-10-12 10:55 | Outpatient (BNVA) | payer MEDICARE, OTHER, SELFPAY | PROVIDERS: PCP Nurse Practitioner Family; Referring Provider Nurse Practitioner Family; Visit Provider Physical Therapy Assistant | DX: S81.801D Unspecified open wound, right lower leg, subsequent encounter (principal); C44.519 Basal cell carcinoma of skin of other part of trunk; X58.XXXD Exposure to other specified factors, subsequent encounter | CPT/HCPCS: 97605 ==

== ENCOUNTER 2021-10-12 12:33 | Outpatient (REF) | payer MEDICARE, OTHER, SELFPAY ==
[2021-10-12 11:41] LABS: Source Nasal/Nares
[2021-10-12 17:39] LABS: COVID-19 PCR Negative (Negative)
== END 2021-10-12 12:34 | disposition home or self-care (01) ==
LOC: LBN 12:33
PROVIDERS: Surgery; PCP Nurse Practitioner Family; Visit Provider Physical Therapy Assistant
DX: Z20.822 Contact with and (suspected) exposure to COVID-19 (principal)
CPT/HCPCS: 87635

== ENCOUNTER 2021-10-14 08:40 | Day surgery (SDC) | payer MEDICARE, OTHER, SELFPAY ==
--- NOTE | 2021-10-13 15:05 | W.ANESPOSTOP ---
Postoperative Evaluation Date, Time and Location Date Performed: 10/13/21 Time Performed: 15:05 Patient Location: PACU Vital Signs Most Recent Manually Entered Vital Signs: Adult Blood Pressure: 114/73 Heart Rate: 62 Respirations: 17 Oxygen Saturation (%): 100 Temperature (C): 36 C Pain Score (0-10 Scale): 0 Assessment Mental Status: Arousable with meaningful communication Airway and Respiratory Function: Patent airway with normal (patient baseline) respiratory exam Cardiovascular Function: Hemodynamically Stable Hydration Status: Adequately Hydrated Nausea & Vomiting: No Nausea or Vomiting Pain: Pain is tolerable per patient Peripheral Nerve Block: Patient did not receive a nerve block
--- NOTE | 2021-10-14 06:43 | W.ANESPRE ---
General Info Date of Service Date Performed: 10/14/21 Height: 5 ft Weight: 90.718 kg Body Mass Index (BMI): 39.0 Surgical Procedure: Operation Date: 10/14/21 11:55 Proposed Procedures Side Surgeon p Excision Lesion flank Right Karolyn Santamaria MD s Debridement right posterior calf wound Right Karolyn Santamaria MD Meds Allergies and Home Medications Allergies Allergy/AdvReac Type Severity Reaction Status Date / Time duloxetine Allergy Intermediate states Verified 10/14/21 09:24 keeps me awake all night gabapentin AdvReac Severe feet swell Unverified 10/14/21 09:23 Home Medication Medication Instructions Recorded allopurinol 300 mg PO DAILY 10/03/15 amlodipine 5 mg PO DAILY 10/03/15 aspirin [Lo-Dose Aspirin] 81 mg PO DIRECTED 10/03/15 enalapril maleate 40 mg PO DIRECTED 10/03/15 metoprolol tartrate 200 mg PO DIRECTED 10/03/15 multivitamin 1 tab PO DIRECTED 10/03/15 acetaminophen 1,000 mg PO Q8H PRN PRN #0 04/29/18 ascorbic acid (vitamin C) [Vitamin 1,000 mg PO DAILY 04/29/18 C] ibuprofen 600 mg PO Q8H PRN PRN 04/29/18 rosuvastatin 10 mg tablet 10 mg PO DAILY 09/11/21 Current Visit Medications: Current Medications Generic Name Dose Route Start Last Admin Trade Name Freq PRN Reason Stop Dose Admin Ringer's Solution 1,000 mls @ 80 mls/hr 10/14/21 06:00 IV 11/12/21 23:59 INFUSION MARINA IV Miscellaneous Supplies 1 each 10/14/21 06:00 Iv Access IV 11/12/21 23:59 DIRECTED MARINA Sodium Chloride 0 ml 10/14/21 06:00 Normal Saline Flush 10 Ml Syr IV 11/12/21 23:59 PRN PRN Sodium Chloride 0 ml 10/14/21 06:00 Normal Saline 10 Ml Vial IJ 11/12/21 23:59 DIRECTED PRN Sterile Water 0 ml 10/14/21 06:00 Water,Injection,Sterile 10 Ml Vial IJ 11/12/21 23:59 DIRECTED PRN PFSH Active Problems Active Problems: Problem Status Onset Code 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 Non-healing wound of right lower extremity S81.801A Skin lesion of back L98.9 Basal cell carcinoma (BCC) of back C44.519 Medical History Active Problem List Rash (Acute) Hood palsy (Acute) Non-healing wound of right lower extremity (Acute) Skin lesion of back (Acute) Basal cell carcinoma (BCC) of back (Acute) Medical History Aortic stenosis Chronic back pain DM2 (diabetes mellitus, type 2) Gout 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 Internal carotid artery stenosis Left ICA stenosis Pulmonary hypertension Scleroderma Tobacco Smoking/Tobacco Use Status: Former Tobacco Use Alcohol Alcohol Intake: current Alcohol intake frequency: holidays/special occasions only Substance Use Substance use: Never Substance use type: does not use Vital Signs and Lab Results Lab Results Blood Type / Crossmatch: No Data to Display Complete Blood Count: No Data to Display Complete Metabolic Panel: No Data to Display Liver Function Panel: No Data to Display Coagulation Panel: No Data to Display Cardiac Panel: No Data to Display Arterial Blood Gas: No Data to Display Venous Blood Gas: No Data to Display Pancreas Panel: No Data to Display Thyroid Panel: No Data to Display Infectious Disease: Coronavirus (COVID-19)(PCR) Negative (Negative) 10/12/21 10:45 10/12/21 Coronavirus 2019 Source Nasal/Nares 10/12/21 10:45 10/12/21 Blood Cultures: No Data to Display Toxicology Panel: No Data to Display Imaging and Studies Imaging and Studies Echocardiogram Summary: 08/26/2020 Conclusion Mild concentric left ventricular hypertrophy. Estimated ejection fraction is 55 to 60%. There are no segmental wall motion abnormalities Normal right ventricular size and systolic function Normal right and left atrial size The aortic valve is sclerotic and trileaflet. There is mild to moderate aortic stenosis. Peak gradient is 40, mean gradient 23. Calculated aortic valve area is 1.55 cm???. Trace aortic regurgitation Moderate mitral annular calcification. Thickened mitral leaflets. Mild mitral stenosis and regurgitation Structurally normal tricuspid and pulmonic valves Trace to mild tricuspid and pulmonic regurgitation Mild pulmonary hypertension, RVSP 37 mmHg Compared to previous study from January 2019, the degree of aortic stenosis appears similar. 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 On the right, there appears to be an internal carotid artery occlusion at the bifurcation. High velocity flow noted in external carotid artery. On the left, there is increased velocity at the distal internal carotid artery consistent with 50-60% luminal diameter stenosis. There is bilateral antegrade vertebral flow. CONCLUSION: Findings consistent with complete occlusion, right ICA, at its origin. A 50-60% luminal diameter stenosis, left ICA. Anesthesia Assessment and Plan Anesthesia History Personal History: No History of Anesthesia Complications Family History: No Family History of Anesthesia Complications Exercise Tolerance Exercise Tolerance: Metabolic Equivalents<4 Pertinent Negatives Pertinent Negatives: No Symptoms of GERD, No Major Cardiovascular Symptoms or Complaints and No Major Pulmonary Symptoms or Complaints Cardiac & Pulmonary Exam Cardiac Exam: Normal S1/S2 Heart Sounds Pulmonary Exam: Clear Bilateral Breath Sounds Implantable Cardiac Device Does patient have a Pacemaker or an ICD?: No Airway Exam Known Difficult Airway: No Mallampati Class: 3 Mouth Opening: Normal (> 3cm) Thyromental Distance: Greater than 3 cm Neck Range of Motion: Limited ROM (slight) Neck Circumference: Normal Teeth Condition: Normal Dentition ASA Classification ASA Score: ASA 4 Emergency Case?: No NPO Status NPO Status: NPO Clears >2 hours, Solids >8 hours Anesthesia Plan Resuscitation Status: Full Code Anesthesia Technique: Primary Nerve Block (light sedation, arterial line) Airway Planned: Natural Airway Pain Management: Surgeon and patient request nerve block (Primary) Monitors Used: Standard Monitors Preoperative Comments:: 85 yo female. - history of total left ICA occlusion, right partial ICA occlusion. Seen by [facility] vascular every 6 months. No recent stroke symptoms.
--- NOTE | 2021-10-14 07:04 | W.PM.OP ---
Date of service: 10/14/21 Time of Service: 13:00 Operative Note Operative Note DATE OF PROCEDURE: 10/14/21 PRE-OP DIAGNOSIS: skin lesion left flank POST-OP DIAGNOSIS: same PROCEDURE: excision of skin lesion left flank SURGEON: Karolyn Santamaria SEWING DEPARTMENT SUPERVISOR: Rosa Brewer ANESTHESIA TYPE: Local By Surgeon, MAC and Primary Nerve Block Refer to Anesthesia Record ESTIMATED BLOOD LOSS: 25 PATHOLOGY: other (skin lesion marked with double suture lateral) COMPLICATIONS: None Patient was transported to: same day Patient's condition: stable Implants: None Indications: armando is a pleasant 85 year old female who has been seen in the office for a large basal cell cancer of her right flank. Excision in the OR was explained in detail. Risks, benefits and complications were reviewed and she wished to proceed. No guarantees were given or implied. Findings: lesion size 6 x 3 cm Procedure Description: After informed consent was obtained the patient had a block done by anesthesia. Once the block was set she was taken to the OR and placed in a supine position. An a-line was placed by anesthesia to be able to monitor her BP more closely. Once the a-line was secured the patient was placed in a left decubitous position on a beanbag. Her arms were placed on pillows for support. The skin was then prepped and draped in a sterile surgical fashion with iodine. An elliptical incision was made around the lesion with a 15 blade. Dissection was done with cautery circumferentially and down to the subcutaneous tissue. Once the lesion was completely dissected it was marked with a suture laterally and placed into formalin and sent to pathology. The wound was irrigated with some saline. Bleeding was stopped using cautery. Once the wound was clean and dry, the subcutaneous tissue was scored with cautery circumferentially creating a flap. The subcutaneous tissue was reapproximated in 2 layers with interrupted stitches of 2-0 and 3-0 vicryl. The dermis was closed with interrupted 2-0 proline vertical mattress stitches. Skin was cleaned and dried and a ASHLEY dressing was applied (10 x 20 cm). The patient tolerated the procedure well and there were no immediate complications. Needle counts were correct at the end of the case.
--- NOTE | 2021-10-14 07:07 | W.PM.DSUDISC ---
Discharge Plan Disposition Patient Disposition: HOME Condition: Good Discharge Details Reason For Visit: Excision of skin lesion Attending Provider: Karolyn Santamaria Primary Care Provider: Emma Iniguez Home Meds and New Rx's Prescriptions: New tramadol [Ultram] 50 mg tablet 50 mg PO Q6H PRNQty: 14 RF: 0 Continued rosuvastatin 10 mg tablet 10 mg PO DAILY RF: 0 multivitamin 1 EACH tablet 1 tab PO DIRECTED RF: 0 metoprolol tartrate 100 MG tablet 200 mg PO DIRECTED RF: 0 enalapril maleate 20 MG tablet 40 mg PO DIRECTED RF: 0 amlodipine 5 MG tablet 5 mg PO DAILY RF: 0 allopurinol 100 MG tablet 300 mg PO DAILY RF: 0 aspirin [Lo-Dose Aspirin] 81 MG tablet,delayed release (DR/EC) 81 mg PO DIRECTED RF: 0 ascorbic acid (vitamin C) [Vitamin C] 1,000 MG tablet 1,000 mg PO DAILY RF: 0 ibuprofen 200 MG tablet 600 mg PO Q8H PRN PRNRF: 0 acetaminophen 500 MG tablet 1,000 mg PO Q8H PRN PRN (Reason: Pain) Qty: 0 RF: 0 Discharge Instructions Additional Instructions: Activity at Home after surgery: 1. Make sure you walk outside at least 4 times per day 2. You should be able to climb a flight of stairs 3. No driving while in pain or taking pain medications 4. No strenuous activity or heavy lifting for 4 weeks Diet, Nutrition, & wound healin. Avoid alcohol until after you are recovered from your surgery 2. Make sure to eat plenty of lean protein (meat, fish, eggs, cottage cheese, beans) 3. Eat a variety of fruits and vegetables. Eat plenty of high fiber foods to avoid constipation. 4. Drink plenty of liquids to stay hydrated and avoid constipation Pain Medications: 1. Tylenol 650mg every 6 hours as needed and Ibuprofen 600 mg every 6 hours as needed. You may alternate between the 2 medications every 3 hours 2. If a narcotic has been prescribed take as directed only for breakthrough pain For Constipation: 1. Take Milk of Magnesia or MiraLax as needed for constipation Other: 1. You may shower daily. Do not scrub the incisions 2. Do not soak the incisions for 1 week 3. You may alternate ice and heat as needed for pain and swelling Wound Care: 1. flank- Jeronimo dressing 2. Right leg- cover with a large bandaid until you see us in the office Please call our office if you develop: 1. Fevers >101.5 2. Nausea or Vomiting 3. Worsening pain 4. Redness and thick discharge from the wounds If after hours please call the Hospital at and ask to speak to the on-call surgeon Referrals: Karolyn Santamaria MD [ [facility] STAFF PHYSICIAN] - 10/20/21 1:30 pm Activity:: Activity as Tolerated Diet:: As Tolerated Discharge Orders Discharge Orders: Discharge Order (Routine); Ordered 10/14/21 Ordered By: Karolyn Santamaria
[2021-10-14 09:07] VITALS: BP 187/71; PULSE 68; RESP 20; TEMP 36.6; O2SAT 97
[2021-10-14] MEDS: Lactated Ringers 1,000 ML 80 ML IV (09:42)
[2021-10-14 10:11] VITALS: BMI 39.0
--- NOTE | 2021-10-14 11:50 | SOFT_PTH ---
PATIENT: Neris Avila LOC: [facility] U#:[id number] AGE/SX: 85/F ROOM: RE10/14/[address]: Karolyn Santamaria MD : 1935 BED: DIS: 10/14/2021 SPEC #: [id number] RECD: 10/14/21 12:55 STATUS: BRIAN REQ #: [id number] VINCENZO: 10/14/21 11:[address]: Karolyn Santamaria DEPT: Surgical Specimen RECD BY: Rosie Nguyen ENTERED: 10/14/21 12:56 SP TYPE: SOFT OTHR DR: Emma Iniguez Tissues: 1 - SOFT TISSUE MISC (INC. LIPOMA) Procedures: GROSS AND MICRO LEVEL 3 Comments: [id number]
--- NOTE | 2021-10-14 11:53 | W.ANESNERVE ---
Nerve Block Single Injection Procedure Date and Time Date Performed: 10/14/21 Procedure Start: 10:25 Location Where Procedure Performed Procedure Location: Day Surgery Unit Reason Performed: Other Requesting Provider: Karolyn Santamaria Timeout Performed Timeout Performed: Yes Monitoring Used Blood Pressure and SpO2 Sterility Sterility: Hand Hygiene, Surgical Cap, Surgical Mask, Sterile Gloves, Eye Protection and Chlorhexidine Sedation Given During Procedure Sedation Given (Indicate Dose Given): Precedex IV Dose:: 4 mcg Patient Mental Status Patient Mental Status: Awake Nerve Block 1st Nerve Block: Laterality: Right Block Type: Erector Spinae (Lower) Needle / Catheter Used: 100mm SonoPlex II Local Anesthetic Bolus (Indicate Dose Given): Lidocaine used for local infiltration of skin, Injected in 3-5ml increments after negative blood aspiration, Bupivacaine 0.5% Dose:: 20 ml and Exparel Dose:: 10 ml Additives (Indicate Dose Given): None Ultrasound: Sterile probe cover and gel used Ultrasound Image Saved?: Yes Nerve Stimulator: Not Used Paresthesia: None Procedure Tolerated: No Complications Procedure Outcome: Successful Performed By: Derik Hogan
[2021-10-14] MEDS: Bupivacaine LIPOSOME/PF 133 MG/10 ML VIAL IJ (12:03)
--- NOTE | 2021-10-14 12:33 | W.ANESPOSTOP ---
Postoperative Evaluation Date, Time and Location Date Performed: 10/14/21 Time Performed: 12:36 Patient Location: Day Surgery Unit Vital Signs Most Recent Imported Vital Signs: Most Recent Vital Signs Temp Pulse Resp BP Pulse Ox 36.6 C 68 20 187/71 H 97 10/14/21 09:07 10/14/21 09:07 10/14/21 09:07 10/14/21 09:07 10/14/21 09:07 Most Recent Manually Entered Vital Signs: Adult Blood Pressure: 147/50 Heart Rate: 68 Respirations: 16 Oxygen Saturation (%): 94 Temperature (C): 36.1 C Pain Score (0-10 Scale): 0 Pain Score Most Recent Pain Score: Most Recent Pain Score Pain Level 0 10/14/21 09:07 Assessment Mental Status: Awake (Alert & Oriented to Patient Baseline) Airway and Respiratory Function: Patent airway with normal (patient baseline) respiratory exam Cardiovascular Function: Hemodynamically Stable Hydration Status: Adequately Hydrated Nausea & Vomiting: No Nausea or Vomiting Pain: Pt. Denies Any Pain Peripheral Nerve Block: Regional nerve block not resolved at time of post operative discharge
[2021-10-14 12:39] VITALS: BP 147/50; PULSE 68; RESP 16; TEMPC 36.1; O2SAT 94
[2021-10-14 12:44] VITALS: BP 147/50; PULSE 68; RESP 18; TEMP 36.1; O2SAT 94
[2021-10-14 13:12] VITALS: BP 133/54; PULSE 65; RESP 20; TEMP 36.6; O2SAT 94
--- NOTE | 2021-10-14 13:42 | W.ANESPOSTOP ---
Postoperative Evaluation Date, Time and Location Date Performed: 10/14/21 Time Performed: 13:42 Patient Location: Day Surgery Unit Vital Signs Most Recent Imported Vital Signs: Most Recent Vital Signs Temp Pulse Resp BP Pulse Ox 36.6 C 65 20 133/54 L 94 10/14/21 13:12 10/14/21 13:12 10/14/21 13:12 10/14/21 13:12 10/14/21 13:12 Most Recent Vital Signs Temp Pulse Resp BP Pulse Ox 36.6 C 68 20 187/71 H 97 10/14/21 09:07 10/14/21 09:07 10/14/21 09:07 10/14/21 09:07 10/14/21 09:07 Most Recent Manually Entered Vital Signs: Adult Blood Pressure: 100/64 Heart Rate: 75 Respirations: 16 Oxygen Saturation (%): 98 Temperature (C): 36.8 C Pain Score (0-10 Scale): 0 Pain Score Most Recent Pain Score: Most Recent Pain Score Pain Level 0 10/14/21 13:12 Assessment Mental Status: Awake (Alert & Oriented to Patient Baseline) Airway and Respiratory Function: Patent airway with normal (patient baseline) respiratory exam Cardiovascular Function: Hemodynamically Stable Hydration Status: Adequately Hydrated Nausea & Vomiting: No Nausea or Vomiting Pain: Pt. Denies Any Pain Peripheral Nerve Block: Patient did not receive a nerve block
== END 2021-10-14 13:58 | disposition home or self-care (01) ==
LOC: SUR 08:40
PROVIDERS: PCP Nurse Practitioner Family; Visit Provider Surgery
PROC: (CPT 11606; principal; 2021-10-14 11:45)
DX: C44.519 Basal cell carcinoma of skin of other part of trunk (principal); E11.9 Type 2 diabetes mellitus without complications; M34.9 Systemic sclerosis, unspecified
CPT/HCPCS: 11606; 12032; 76942; 88304; J0690; J1100; J2370; J2405; J3010

== ENCOUNTER → 2021-10-20 11:22 | Outpatient (BNVA) | payer MEDICARE, OTHER, SELFPAY | PROVIDERS: PCP Nurse Practitioner Family; Referring Provider Nurse Practitioner Family; Visit Provider Surgery | DX: S81.801D Unspecified open wound, right lower leg, subsequent encounter (principal); X58.XXXD Exposure to other specified factors, subsequent encounter ==

== ENCOUNTER → 2021-11-02 09:10 | Outpatient (BNVA) | payer MEDICARE, OTHER, SELFPAY | PROVIDERS: PCP Nurse Practitioner Family; Referring Provider Nurse Practitioner Family; Visit Provider Physical Therapy Assistant | DX: C44.519 Basal cell carcinoma of skin of other part of trunk (principal); I87.2 Venous insufficiency (chronic) (peripheral) | CPT/HCPCS: 11606 ==

== ENCOUNTER 2021-11-02 15:41 | Outpatient (REF) | payer MEDICARE, OTHER, SELFPAY ==
--- NOTE | 2021-11-02 10:10 | SKI_PTH ---
PATIENT: Neris Avila LOC: [facility] U#:[id number] AGE/SX: 85/F ROOM: RE11/02/[address]: TONIA Payne : 1935 BED: DIS: 11/02/2021 SPEC #: [id number] RECD: 11/02/21 16:50 STATUS: BRIAN REQ #: [id number] VINCENZO: 11/02/21 10:[address]: Rosa Brewer DEPT: Surgical Specimen RECD BY: Rosie Nguyen ENTERED: 11/02/21 16:50 SP TYPE: JUANJOSE RUELAS DR: Emma Iniguez Tissues: 1 - SKIN BIOPSY(SHAVE/PUNCH) Procedures: GROSS AND MICRO LEVEL 3 Comments: [id number]
== END 2021-11-02 15:42 | disposition home or self-care (01) ==
LOC: LBN 15:41
PROVIDERS: PCP Nurse Practitioner Family; Visit Provider Physical Therapy Assistant
DX: L30.9 Dermatitis, unspecified (principal)
CPT/HCPCS: 88304; 88305

== ENCOUNTER → 2021-11-04 13:51 | Outpatient (BNVA) | payer MEDICARE, OTHER, SELFPAY | PROVIDERS: PCP Nurse Practitioner Family; Referring Provider Nurse Practitioner Family; Visit Provider Physical Therapy Assistant | DX: Z48.817 Encounter for surgical aftercare following surgery on the skin and subcutaneous tissue (principal) ==

== ENCOUNTER → 2021-11-09 12:22 | Outpatient (BNVA) | payer MEDICARE, OTHER, SELFPAY | PROVIDERS: PCP Nurse Practitioner Family; Referring Provider Nurse Practitioner Family; Visit Provider Physical Therapy Assistant | DX: S81.801D Unspecified open wound, right lower leg, subsequent encounter (principal); X58.XXXD Exposure to other specified factors, subsequent encounter; I65.29 Occlusion and stenosis of unspecified carotid artery; I35.0 Nonrheumatic aortic (valve) stenosis ==

== ENCOUNTER → 2021-11-20 09:14 | Outpatient (BNVA) | payer MEDICARE, OTHER, SELFPAY | PROVIDERS: PCP Nurse Practitioner Family; Referring Provider Nurse Practitioner Family; Visit Provider Physical Therapy Assistant | DX: S81.801D Unspecified open wound, right lower leg, subsequent encounter (principal); X58.XXXD Exposure to other specified factors, subsequent encounter; L98.9 Disorder of the skin and subcutaneous tissue, unspecified | CPT/HCPCS: 99213 ==

== ENCOUNTER → 2021-11-23 09:04 | Outpatient (BNVA) | payer MEDICARE, OTHER, SELFPAY | PROVIDERS: PCP Nurse Practitioner Family; Referring Provider Nurse Practitioner Family; Visit Provider Physical Therapy Assistant | DX: S81.801D Unspecified open wound, right lower leg, subsequent encounter (principal); X58.XXXD Exposure to other specified factors, subsequent encounter | CPT/HCPCS: 99213 ==

== ENCOUNTER → 2021-11-27 12:11 | Outpatient (BNVA) | payer MEDICARE, OTHER, SELFPAY | PROVIDERS: PCP Nurse Practitioner Family; Referring Provider Nurse Practitioner Family; Visit Provider Physical Therapy Assistant | DX: S81.801D Unspecified open wound, right lower leg, subsequent encounter (principal); X58.XXXD Exposure to other specified factors, subsequent encounter | CPT/HCPCS: 97606; 99213 ==

== ENCOUNTER → 2021-11-30 07:12 | Outpatient (BNVA) | payer MEDICARE, OTHER, SELFPAY | PROVIDERS: PCP Nurse Practitioner Family; Referring Provider Nurse Practitioner Family; Visit Provider Physical Therapy Assistant | DX: Z48.817 Encounter for surgical aftercare following surgery on the skin and subcutaneous tissue (principal) ==

== ENCOUNTER 2021-12-01 01:10 | Outpatient (CLI) | payer MEDICARE, OTHER, SELFPAY ==
--- NOTE | 2021-12-01 | DI.US_ITS ---
APPROVED REPORT EXAM: Comprehensive 2D, Doppler, and color-flow Echocardiogram Patient Location: Out-Patient Composition Floor Layer: Joanne Hill RDCS (AE) Indications: Aortic valve stenosis Other Information Study Quality: Adequate Conclusion Mild concentric left ventricular hypertrophy. Estimated ejection fraction is 60 to 65%. There are n o segmental wall motion abnormalities Normal right ventricular size and systolic function The left atrium is severely dilated. The right atrium is normal in size Aortic valve is trileaflet and sclerotic with moderate aortic stenosis. Peak gradient is 51, mean 29 , calculated aortic valve area 1.3 cm??. There is trace aortic regurgitation Moderate mitral annular calcification. Mild mitral stenosis and mild regurgitation Normal tricuspid valve with trace to mild regurgitation. Estimated right ventricular systolic pressu re is 44 mmHg Very mildly dilated ascending aorta Wall motion Left Ventricle The left ventricle is normal size. The left ventricular systolic function is normal. The left ventric ular ejection fraction is within the normal range. Mild concentric left ventricular hypertrophy. Ther e is normal LV segmental wall motion. There is no ventricular septal defect visualized. LVEF is 60-65 %. Right Ventricle The right ventricle is normal size. The right ventricular systolic function is normal. The RVSP is 44 .2 mmHg. Atria Left atrium is severely dilated. The right atrium size is normal. The interatrial septum is intact wi th no evidence for an atrial septal defect. Aortic Valve Aortic valve is calcified. Aortic valve is trileaflet. Mioderate aortic stenosis. Peak aortic valve g radient is 50.6mmHg. Highest mean aortic valve gradient is __29__mmHg. Highest mean aortic valve grad ient is 28.7mmHg. Calculated MISSY by the continuity equation is 1.3cm2. Trace aortic regurgitation. Mitral Valve Moderate mitral annular calcification. Mild mitral stenosis. Mild mitral regurgitation. Tricuspid Valve The tricuspid valve is normal in structure. There is no tricuspid valve stenosis. Trace to mild tricu spid regurgitation. Pulmonic Valve The pulmonary valve is normal in structure. There is no pulmonic valvular stenosis. Trace pulmonic re gurgitation. Great Vessels The aortic root is normal in size. The ascending aorta is mildly dilated. Aortic arch is normal in ca liber. IVC is normal in size and collapses >50% with inspiration. Pericardium There is no pericardial effusion. 2D Dimensions IVSD d PLAX 1.21 cm F: 0.6-1.0 LV Vol A2C d MOD 104.1 mL LVPW d PLAX 1.22 cm F: 0.6 - 1.0 LV Vol A4C d MOD 111.0 mL LVID d PLAX 4.70 cm F: 3.8 - 5.2 LA vol/ BSA A2C s A-L 41.0 mL/m2 LVDs 3.20 cm F: 2.2 - 3.5 LA vol/ BSA A4C s A-L 41.2 mL/m2 Ao Root d 2.43 cm F: 2.7 - 3.3 LA Vol/ BSA Biplane s A-L 41.8 mL/m2 RA Area A4C 13.99 cm2 LA Area A4C s MOD 23.54 cm2 RA Vol/ BSA A4C s A-L 18.9 mL/m2 LA Area A2C s MOD 23.05 cm2 Ao Asc Diam d 3.36 cm F: 2.3 - 3.1 LV EF A4C MOD 57.3 % LV EF Teichholz 59.2 % LV EF A2C MOD 57.2 % LVEF (Purdy's) 58.43 % F: 54 - 74 LV EF Biplane MOD 58.4 % LV Volume 84.94 mL F: 46 - 106 SV 64.63 mL LV Volume Index 45.66 mL/m2 F: 29 - 61 SV Index 34.62 mL/m2 LV Vol Biplane MOD 110.6 mL FS 31.35 % M-Mode TAPSE 2.03 cm (M/F) >1.7 LV Diastology MV E' medial 0.044 (>0.07 m/s) E/A Ratio 0.6 LV E/e MED 24.25 (<14) MV E Vmax 1.07 (0.4-1.3 m/s) MV E' lateral 0.069 (>0.1 m/s) MV A Vmax 1.65 (0.4-1.3 m/s) LV E/e LAT 15.35 (<14) MV E/A Ratio 0.63 MV E/E' medial 24.30 MV E/E' lateral 15.40 Aortic Valve LVOT Area 2.53 cm2 AoV Area Vmax 1.31 cm2 LVOT Vmax 1.84 m/s AoV Area/ BSA (Vmax) 0.70 cm2/m2 LVOT Mean Miguel. 1.54 m/s MISSY Mean Miguel. 1.54 cm2 LVOT Peak Grad 13.5 mmHg MISSY Mean Miguel. Index 0.83 cm2/m2 LVOT Mean Grad 9.8 mmHg AR DT 1643 msec LVOT VTI 0.453 m AR PHT 476 msec LVOT Diam s 1.75 cm AoV Vmax 3.57 m/s Velocity Ratio 0.51 AoV Mean Miguel. 2.53 m/s AoV Peak Grad 50.9 mmHg LVOT SV 114.74 mL AoV Mean Grad 28.7 mmHg AoV VTI 0.858 m AoV Area VTI 1.34 cm2 AoV Area/ BSA (VTI) 0.72 cm/m2 Mitral Valve MV DT 317 (160-240 msec) MR Vmax 4.74 m/s MV PHT 92 msec MR VTI 1.864 m MV Area PHT 2.39 cm2 MR Peak Grad 90.0 mmHg MV VTI 0.546 m MR Mean Grad 61.8 mmHg MV VTI Annulus 0.587 m MV Area VTI 2.27 (4.0-6.0 cm2) Pulmonary Valve PV Vmax 0.97 (0.5-1.5 m/s) RVOT Peak Gr. 2.39 mmHg PV Peak Grad 3.8 mmHg RVOT Mean Gr. 1.30 mmHg PV Mean Grad 2.2 mmHg RVOT VTI 0.171 m PV VTI 0.231 m RVOT Vmax 0.77 m/s Tricuspid Valve TR Peak Grad 41.2 mmHg TR Vmax 3.21 m/s RA Pressure 3.00 mmHg RVSP (TR) 44.2 mmHg
== END 2021-12-01 01:30 ==
PROVIDERS: PCP Nurse Practitioner Family; Visit Provider Nurse Practitioner Family
DX: I08.3 Combined rheumatic disorders of mitral, aortic and tricuspid valves (principal)
CPT/HCPCS: 93306

== ENCOUNTER → 2021-12-04 08:17 | Outpatient (BNVA) | payer MEDICARE, OTHER, SELFPAY | PROVIDERS: PCP Nurse Practitioner Family; Referring Provider Nurse Practitioner Family; Visit Provider Physical Therapy Assistant | DX: S81.801D Unspecified open wound, right lower leg, subsequent encounter (principal); X58.XXXD Exposure to other specified factors, subsequent encounter; L98.9 Disorder of the skin and subcutaneous tissue, unspecified | CPT/HCPCS: 97606; 99213 ==

== ENCOUNTER → 2021-12-11 08:23 | Outpatient (BNVA) | payer MEDICARE, OTHER, SELFPAY | PROVIDERS: PCP Nurse Practitioner Family; Referring Provider Nurse Practitioner Family; Visit Provider Physical Therapy Assistant | DX: S81.801D Unspecified open wound, right lower leg, subsequent encounter (principal); X58.XXXD Exposure to other specified factors, subsequent encounter | CPT/HCPCS: 97605; 99212 ==

== ENCOUNTER → 2021-12-15 07:47 | Outpatient (BNVA) | payer MEDICARE, OTHER, SELFPAY | PROVIDERS: PCP Nurse Practitioner Family; Referring Provider Nurse Practitioner Family; Visit Provider Physical Therapy Assistant | DX: S81.801D Unspecified open wound, right lower leg, subsequent encounter (principal); X58.XXXD Exposure to other specified factors, subsequent encounter ==

== ENCOUNTER → 2021-12-18 07:47 | Outpatient (BNVA) | payer MEDICARE, OTHER, SELFPAY | PROVIDERS: PCP Nurse Practitioner Family; Referring Provider Nurse Practitioner Family; Visit Provider Physical Therapy Assistant | DX: S81.801D Unspecified open wound, right lower leg, subsequent encounter (principal); X58.XXXD Exposure to other specified factors, subsequent encounter | CPT/HCPCS: 97605; 99212 ==

== ENCOUNTER → 2021-12-21 07:48 | Outpatient (BNVA) | payer MEDICARE, OTHER, SELFPAY | PROVIDERS: PCP Nurse Practitioner Family; Referring Provider Nurse Practitioner Family; Visit Provider Physical Therapy Assistant | DX: S81.801D Unspecified open wound, right lower leg, subsequent encounter (principal); X58.XXXD Exposure to other specified factors, subsequent encounter | CPT/HCPCS: 99212 ==

== ENCOUNTER → 2021-12-25 08:10 | Outpatient (BNVA) | payer MEDICARE, OTHER, SELFPAY | PROVIDERS: PCP Nurse Practitioner Family; Referring Provider Nurse Practitioner Family; Visit Provider Physical Therapy Assistant | DX: S81.801D Unspecified open wound, right lower leg, subsequent encounter (principal); X58.XXXD Exposure to other specified factors, subsequent encounter | CPT/HCPCS: 97605; 99211 ==

== ENCOUNTER → 2021-12-28 07:47 | Outpatient (BNVA) | payer MEDICARE, OTHER, SELFPAY | PROVIDERS: PCP Nurse Practitioner Family; Referring Provider Nurse Practitioner Family; Visit Provider Physical Therapy Assistant | DX: Z48.817 Encounter for surgical aftercare following surgery on the skin and subcutaneous tissue (principal) ==

== ENCOUNTER → 2022-01-01 07:41 | Outpatient (BNVA) | payer MEDICARE, OTHER, SELFPAY | PROVIDERS: PCP Nurse Practitioner Family; Referring Provider Nurse Practitioner Family; Visit Provider Physical Therapy Assistant | DX: S81.801D Unspecified open wound, right lower leg, subsequent encounter (principal); X58.XXXD Exposure to other specified factors, subsequent encounter | CPT/HCPCS: 97605; 99212 ==

== ENCOUNTER → 2022-01-04 07:45 | Outpatient (BNVA) | payer MEDICARE, OTHER, SELFPAY | PROVIDERS: PCP Nurse Practitioner Family; Referring Provider Nurse Practitioner Family; Visit Provider Physical Therapy Assistant | DX: S81.801D Unspecified open wound, right lower leg, subsequent encounter (principal); X58.XXXD Exposure to other specified factors, subsequent encounter | CPT/HCPCS: 99212 ==

== ENCOUNTER → 2022-01-08 07:58 | Outpatient (BNVA) | payer MEDICARE, OTHER, SELFPAY | PROVIDERS: PCP Nurse Practitioner Family; Referring Provider Nurse Practitioner Family; Visit Provider Physical Therapy Assistant | DX: R69 Illness, unspecified (principal) ==

== ENCOUNTER → 2022-01-11 08:22 | Outpatient (BNVA) | payer MEDICARE, OTHER, SELFPAY | PROVIDERS: PCP Nurse Practitioner Family; Referring Provider Nurse Practitioner Family; Visit Provider Surgery | DX: I65.29 Occlusion and stenosis of unspecified carotid artery (principal); I27.20 Pulmonary hypertension, unspecified; M34.9 Systemic sclerosis, unspecified; I35.0 Nonrheumatic aortic (valve) stenosis; S41.101D Unspecified open wound of right upper arm, subsequent encounter; X58.XXXD Exposure to other specified factors, subsequent encounter | CPT/HCPCS: 99212 ==

== ENCOUNTER → 2022-01-14 08:19 | Outpatient (BNVA) | payer MEDICARE, OTHER, SELFPAY | PROVIDERS: PCP Nurse Practitioner Family; Referring Provider Nurse Practitioner Family; Visit Provider Surgery | DX: I83.009 Varicose veins of unspecified lower extremity with ulcer of unspecified site; L97.901 Non-pressure chronic ulcer of unspecified part of unspecified lower leg limited to breakdown of skin; S81.801D Unspecified open wound, right lower leg, subsequent encounter; I65.29 Occlusion and stenosis of unspecified carotid artery; I35.0 Nonrheumatic aortic (valve) stenosis | CPT/HCPCS: 36415; 99213 ==

== ENCOUNTER 2022-01-14 10:27 | Outpatient (REF) | payer MEDICARE, OTHER, SELFPAY ==
[2022-01-14 10:21] LABS: Abs Immature Grans 1.54 10^3/uL (0.0-0.06); HCT 41.3 % (36.0-46.0); HGB 13.3 g/dL (11.2-15.7); MCHC 32.2 % (32.0-36.0); MPV 11.7 fL (8.0-11.0); Nucleated RBC 0 %; Platelet Count 148 10^3/uL (130-400); RBC 4.44 10^6/uL (3.93-5.22); RDW 14.3 % (11.7-14.6); RDW-SD 48.8 fL; WBC 15.93 10^3/uL (4.4-10.8)
[2022-01-14 10:31] LABS: ALT 22 U/L (14-59); AST 15 U/L (15-37); Albumin 3.9 g/dL (3.4-5.0); Alkaline Phosphatase 61 U/L (46-116); Anion Gap 6.3 mmol/L (3-11); BUN 25 mg/dL (7-18); Bilirubin, Total 0.4 mg/dL (0.2-1.0); C-Reactive Protein 0.06 mg/dL (0.0-0.3); CO2 29.7 mmol/L (21.0-32.0); CREATININE 0.8 mg/dL (0.55-1.02); Calcium 8.8 mg/dL (8.5-10.1); Chloride 105 mmol/L (98-107); Glucose 91 mg/dL (74-106); Potassium 4.3 mmol/L (3.5-5.1); Sodium 141 mmol/L (136-145); Total Protein 7.2 g/dL (6.4-8.2)
[2022-01-14 10:36] LABS: Absolute Eosinophil Count 0.16 10^3/uL (0.0-0.7); Absolute Lymphocyte Count 2.23 10^3/uL (1.2-3.4); Absolute Monocyte Count 3.66 10^3/uL (0.1-0.8); Absolute Neutrophil Count 8.92 10^3/uL (1.2-6.7); Atypical Lymphocytes % 1; Bands % 4; Diff Comment Manual Differential; Metamyelocytes % 2; Myelocytes % 4; RBC Morphology Normal
== END 2022-01-14 10:28 | disposition home or self-care (01) ==
LOC: LBN 10:27
PROVIDERS: PCP Nurse Practitioner Family; Visit Provider Surgery
DX: C44.310 Basal cell carcinoma of skin of unspecified parts of face (principal); C44.519 Basal cell carcinoma of skin of other part of trunk; G51.0 Bell's palsy; G89.29 Other chronic pain; I27.20 Pulmonary hypertension, unspecified; I35.0 Nonrheumatic aortic (valve) stenosis; I65.29 Occlusion and stenosis of unspecified carotid artery; I73.9 Peripheral vascular disease, unspecified; L97.901 Non-pressure chronic ulcer of unspecified part of unspecified lower leg limited to breakdown of skin; M10.9 Gout, unspecified; M34.9 Systemic sclerosis, unspecified; M54.9 Dorsalgia, unspecified; S41.101A Unspecified open wound of right upper arm, initial encounter; S81.801A Unspecified open wound, right lower leg, initial encounter; Z74.09 Other reduced mobility
CPT/HCPCS: 80053; 85025; 86140

== ENCOUNTER → 2022-01-18 09:59 | Outpatient (BNVA) | payer MEDICARE, OTHER, SELFPAY | PROVIDERS: PCP Nurse Practitioner Family; Referring Provider Nurse Practitioner Family; Visit Provider Physical Therapy Assistant | DX: R69 Illness, unspecified (principal) ==

== ENCOUNTER 2022-01-19 05:49 | Day surgery (SDC) | payer MEDICARE, OTHER, SELFPAY ==
[2022-01-19 06:40] VITALS: BP 200/63; PULSE 67; RESP 24; TEMP 36.3; O2SAT 98
[2022-01-19 07:06] LABS: Source Nasal/Nares
[2022-01-19] MEDS: Acetaminophen 500 MG TAB 1000 MG PO (07:19)
[2022-01-19] MEDS: Cephalexin 500 MG CAP PO (07:33)
--- NOTE | 2022-01-19 07:42 | NUR.NOTE ---
MD contacted by Pro Parikh RN to clarify EMLA application and antibiotic ordered. EMLA to be applied around wounds per MD. Keflex 500 mg PO to be given preop per MD. 719: EMLA applied around R chin scabbed area, tegaderm applied. 726: EMLA applied around R upper calf wound, tegaderm applied. 729: Keflex 500 mg PO given to pt. see [employer], pt. educated prior to administration. Barb in pharmacy contacted regarding return of second 500 mg Keflex, nursing instructed to place in ran's pocket in pyxis. 1 tablet Keflex 500 mg placed in ran's pocket.Nursing Note:
[2022-01-19 07:49] LABS: COVID-19 PCR Negative (Negative)
--- NOTE | 2022-01-19 11:15 | SKI_PTH ---
PATIENT: Neris Avila LOC: [facility] U#:[id number] AGE/SX: 86/F ROOM: RE01/19/[address]: Rosi Jimenez : 1935 BED: DIS: 01/19/2022 SPEC #: [id number] RECD: 01/19/22 12:55 STATUS: BRIAN REQ #: [id number] VINCENZO: 01/19/22 11:[address]: Rosi Jimenez DEPT: Surgical Specimen RECD BY: Rosei Nguyen ENTERED: 01/19/22 12:56 SP TYPE: JUANJOSE RUELAS DR: Emma Iniguez Tissues: 1 - SKIN BIOPSY(SHAVE/PUNCH) Procedures: SKIN LEVEL 4 Comments: [id number]
[2022-01-19] MEDS: Bupivacaine 0.5% Pres-Free 30 ML VIAL (11:50)
[2022-01-19] MEDS: Gelatin SPONGE 12-7 MM PKT 1 EACH TP (11:52)
[2022-01-19 12:08] VITALS: BP 195/68; PULSE 77; RESP 20; TEMP 35.7; O2SAT 95
--- NOTE | 2022-01-19 12:29 | W.PM.DSUDISC ---
Discharge Plan Disposition Patient Disposition: HOME Condition: Good Discharge Details Reason For Visit: lesion removal and wound debridement Attending Provider: Rsoi Jimenez Primary Care Provider: Emma Iniguez Home Meds and New Rx's Prescriptions: No Action rosuvastatin 10 mg tablet 10 mg PO DAILY 0RF cephalexin 500 mg capsule 500 mg PO BID 7 Days Qty: 14 0RF multivitamin 1 EACH tablet 1 tab PO DIRECTED 0RF metoprolol tartrate 100 MG tablet 200 mg PO DIRECTED 0RF enalapril maleate 20 MG tablet 40 mg PO DIRECTED 0RF amlodipine 5 MG tablet 5 mg PO DAILY 0RF allopurinol 100 MG tablet 300 mg PO DAILY 0RF aspirin [Lo-Dose Aspirin] 81 MG tablet,delayed release (DR/EC) 81 mg PO DIRECTED 0RF ascorbic acid (vitamin C) [Vitamin C] 1,000 MG tablet 1,000 mg PO DAILY 0RF ibuprofen 200 MG tablet 600 mg PO Q8H PRN PRN0RF acetaminophen 500 MG tablet 1,000 mg PO Q8H PRN PRN (Reason: Pain) Qty: 0 0RF acetaminophen [Tylenol Extra Strength] 500 mg Capsule 500 mg 0RF Discharge Instructions Additional Instructions: -leave leg wrapped until clinic 9am appt w/ Dr. Jimenez. -cover leg w/ plastic to shower -wash chin daily w/ soap and water starting tuesday am -keep band-aide on face -tylenol 100mg po every 8 hrs as needed for pain -ice to chin. Do not put ice on leg -take all your meds as previously prescribed. -we do want you up walking around. No strenuous activity or lifting over 20#'s. Activity:: see above Remove Dressings/Wound Care:: 24 hours Shower/Bathe:: Cover Diet:: As Tolerated
[2022-01-19 12:40] VITALS: BP 164/65; PULSE 69; RESP 20; TEMP 36.4; O2SAT 95
--- NOTE | 2022-01-19 13:26 | W.PM.OP ---
Date of service: 01/19/22 Time of Service: 13:26 Operative Note Operative Note DATE OF PROCEDURE: 01/19/22 PRE-OP DIAGNOSIS: Soft tissue mass right chin/history of basal cell carcinoma. Nonhealing wound right posterior medial calf POST-OP DIAGNOSIS: same PROCEDURE: -Excision of probable skin cancer right chin -Wound debridement right posterior medial calf SURGEON: Rosi Jimenez ANESTHESIA TYPE: Local By Surgeon Refer to Anesthesia Record ESTIMATED BLOOD LOSS: 25 PATHOLOGY: other COMPLICATIONS: None Patient was transported to: same day Patient's condition: stable Procedure Description: risk and benefits of surgery were d/w pt and her . She has a hx of prior skin cancer and a large lesion on her R chin that does have the characteristics of a skin cancer. Also, she has a non healing wound on her R post calf. It was an animal bite, approximately 2 yrs ago, and the wound will not heal. She has very poor arterial supply, and there is a risk of further enlarging the wound that this b/c a larger wound that won't heal and a risk of ostoemylitis and limb loss. As it stands currently, she has chronic pain from the wound and it will not heal. The edges are rolled and there is chronic unhealthy granulation in the wound. the wound is horse-shaped and the central portion does not appear viable The patient was seen and marked in preop. She is brought to the operative room suite and placed in the supine position. She had EMLA applied previously. The chin is addressed first. Timeout is performed.The areas prepped and draped the usual sterile fashion using a Betadine scrub solution. 20 cc of 1.5% lidocaine is used for local Timeout is performed the area is excised it is approximately 2 x 3 cm. A suture was placed at the 12 o'clock position. Electrocautery was used to provide hemostasis and to undermine. It is closed with 4-0 nylon in interrupted fashion. Sterile dressing is applied. The patient is then placed in the prone position with all bony surfaces padded. The right lower posterior medial calf is then attended to. Is prepped and draped in usual sterile fashion using a Betadine scrub solution. 30 cc of Marcaine is used for local anesthetization. Cultures are taken. The old bite/wound bed is excised. It does bleed quite readily. Electrocautery and suture is used for hemostasis. All necrotic tissue is debrided away. The wound is down to the muscle. Final wound size is 5 x 3 cm. And is down to the muscle. Gelfoam is used for hemostasis and compression dressings are applied.
== END 2022-01-19 13:12 | disposition home or self-care (01) ==
PROVIDERS: PCP Nurse Practitioner Family; Visit Provider Surgery
PROC: (CPT 11643; principal; 2022-01-19 08:30)
DX: L98.9 Disorder of the skin and subcutaneous tissue, unspecified (principal); I87.2 Venous insufficiency (chronic) (peripheral); L97.211 Non-pressure chronic ulcer of right calf limited to breakdown of skin; Z85.828 Personal history of other malignant neoplasm of skin
CPT/HCPCS: 11643; 11042; 87635; 87070; 87075; 87205; 88305

== ENCOUNTER → 2022-01-21 08:13 | Outpatient (BNVA) | payer MEDICARE, OTHER, SELFPAY | PROVIDERS: PCP Nurse Practitioner Family; Referring Provider Nurse Practitioner Family; Visit Provider Surgery | DX: Z48.817 Encounter for surgical aftercare following surgery on the skin and subcutaneous tissue (principal) | CPT/HCPCS: 99213 ==

== ENCOUNTER → 2022-02-01 08:07 | Outpatient (BNVA) | payer MEDICARE, OTHER, SELFPAY | PROVIDERS: PCP Nurse Practitioner Family; Referring Provider Nurse Practitioner Family; Visit Provider Surgery | DX: S81.801D Unspecified open wound, right lower leg, subsequent encounter (principal); I73.9 Peripheral vascular disease, unspecified; X58.XXXD Exposure to other specified factors, subsequent encounter | CPT/HCPCS: 11042; 99213 ==

== ENCOUNTER → 2022-02-11 08:17 | Outpatient (BNVA) | payer MEDICARE, OTHER, SELFPAY | PROVIDERS: PCP Nurse Practitioner Family; Referring Provider Nurse Practitioner Family; Visit Provider Surgery | DX: S81.801D Unspecified open wound, right lower leg, subsequent encounter (principal); C44.519 Basal cell carcinoma of skin of other part of trunk; I83.009 Varicose veins of unspecified lower extremity with ulcer of unspecified site; L97.901 Non-pressure chronic ulcer of unspecified part of unspecified lower leg limited to breakdown of skin; X58.XXXD Exposure to other specified factors, subsequent encounter | CPT/HCPCS: 15002; 15271; 99214; Q4186 ==

== ENCOUNTER → 2022-02-18 08:18 | Outpatient (BNVA) | payer MEDICARE, OTHER, SELFPAY | PROVIDERS: PCP Nurse Practitioner Family; Referring Provider Nurse Practitioner Family; Visit Provider Surgery | DX: S81.801D Unspecified open wound, right lower leg, subsequent encounter (principal); X58.XXXD Exposure to other specified factors, subsequent encounter; C44.519 Basal cell carcinoma of skin of other part of trunk; I83.009 Varicose veins of unspecified lower extremity with ulcer of unspecified site; L97.901 Non-pressure chronic ulcer of unspecified part of unspecified lower leg limited to breakdown of skin | CPT/HCPCS: 15002; 15271; 99213; Q4186 ==

== ENCOUNTER → 2022-02-25 08:16 | Outpatient (BNVA) | payer MEDICARE, OTHER, SELFPAY | PROVIDERS: PCP Nurse Practitioner Family; Referring Provider Nurse Practitioner Family; Visit Provider Surgery | DX: S81.801D Unspecified open wound, right lower leg, subsequent encounter (principal); X58.XXXD Exposure to other specified factors, subsequent encounter; C44.519 Basal cell carcinoma of skin of other part of trunk; I83.001 Varicose veins of unspecified lower extremity with ulcer of thigh; I73.9 Peripheral vascular disease, unspecified | CPT/HCPCS: 15002; 15271; 99213; Q4186 ==

== ENCOUNTER → 2022-03-04 09:36 | Outpatient (BNVA) | payer MEDICARE, OTHER, SELFPAY | PROVIDERS: PCP Nurse Practitioner Family; Referring Provider Nurse Practitioner Family; Visit Provider Surgery | DX: Z51.89 Encounter for other specified aftercare (principal); I70.203 Unspecified atherosclerosis of native arteries of extremities, bilateral legs; S81.801A Unspecified open wound, right lower leg, initial encounter; C44.519 Basal cell carcinoma of skin of other part of trunk; I83.008 Varicose veins of unspecified lower extremity with ulcer other part of lower leg; I35.0 Nonrheumatic aortic (valve) stenosis; M54.9 Dorsalgia, unspecified; G89.29 Other chronic pain; M10.9 Gout, unspecified; I27.20 Pulmonary hypertension, unspecified; M34.9 Systemic sclerosis, unspecified; X58.XXXA Exposure to other specified factors, initial encounter | CPT/HCPCS: 15002; 15271; 99213; Q4186 ==

== ENCOUNTER → 2022-03-10 09:36 | Outpatient (BNVA) | payer MEDICARE, OTHER, SELFPAY | PROVIDERS: PCP Nurse Practitioner Family; Referring Provider Nurse Practitioner Family; Visit Provider Surgery | DX: Z51.89 Encounter for other specified aftercare (principal) | CPT/HCPCS: 15002; 15271; 99213; Q4186 ==

== ENCOUNTER → 2022-03-18 08:19 | Outpatient (BNVA) | payer MEDICARE, OTHER, SELFPAY | PROVIDERS: PCP Nurse Practitioner Family; Referring Provider Nurse Practitioner Family; Visit Provider Surgery | DX: S81.801A Unspecified open wound, right lower leg, initial encounter (principal); X58.XXXA Exposure to other specified factors, initial encounter; I70.203 Unspecified atherosclerosis of native arteries of extremities, bilateral legs; Z51.89 Encounter for other specified aftercare; Z86.69 Personal history of other diseases of the nervous system and sense organs | CPT/HCPCS: 11042; 99212 ==

== ENCOUNTER → 2022-03-25 08:16 | Outpatient (BNVA) | payer MEDICARE, OTHER, SELFPAY | PROVIDERS: PCP Nurse Practitioner Family; Referring Provider Nurse Practitioner Family; Visit Provider Surgery | DX: Z48.00 Encounter for change or removal of nonsurgical wound dressing (principal); S81.801A Unspecified open wound, right lower leg, initial encounter; X58.XXXA Exposure to other specified factors, initial encounter; I70.203 Unspecified atherosclerosis of native arteries of extremities, bilateral legs; C44.519 Basal cell carcinoma of skin of other part of trunk | CPT/HCPCS: 99211 ==

== ENCOUNTER → 2022-04-01 07:58 | Outpatient (BNVA) | payer MEDICARE, OTHER, SELFPAY | PROVIDERS: PCP Nurse Practitioner Family; Referring Provider Nurse Practitioner Family; Visit Provider Physical Therapy Assistant | DX: Z48.00 Encounter for change or removal of nonsurgical wound dressing (principal) | CPT/HCPCS: 99213 ==

== ENCOUNTER → 2022-04-08 08:18 | Outpatient (BNVA) | payer MEDICARE, OTHER, SELFPAY | PROVIDERS: PCP Nurse Practitioner Family; Referring Provider Nurse Practitioner Family; Visit Provider Surgery | DX: Z51.89 Encounter for other specified aftercare (principal); I70.203 Unspecified atherosclerosis of native arteries of extremities, bilateral legs; S81.801A Unspecified open wound, right lower leg, initial encounter; X58.XXXA Exposure to other specified factors, initial encounter; I83.009 Varicose veins of unspecified lower extremity with ulcer of unspecified site; L97.901 Non-pressure chronic ulcer of unspecified part of unspecified lower leg limited to breakdown of skin | CPT/HCPCS: 99212 ==

== ENCOUNTER → 2022-04-22 08:17 | Outpatient (BNVA) | payer MEDICARE, OTHER, SELFPAY | PROVIDERS: PCP Nurse Practitioner Family; Referring Provider Nurse Practitioner Family; Visit Provider Surgery | DX: Z51.89 Encounter for other specified aftercare (principal); S81.801A Unspecified open wound, right lower leg, initial encounter; X58.XXXA Exposure to other specified factors, initial encounter | CPT/HCPCS: 99212 ==

== ENCOUNTER → 2022-05-06 08:19 | Outpatient (BNVA) | payer MEDICARE, OTHER, SELFPAY | PROVIDERS: PCP Nurse Practitioner Family; Referring Provider Nurse Practitioner Family; Visit Provider Surgery | DX: X58.XXXA Exposure to other specified factors, initial encounter (principal); S81.801A Unspecified open wound, right lower leg, initial encounter | CPT/HCPCS: 99212 ==

== ENCOUNTER → 2022-05-20 08:15 | Outpatient (BNVA) | payer MEDICARE, OTHER, SELFPAY | PROVIDERS: PCP Family Medicine; Referring Provider Family Medicine; Visit Provider Surgery | DX: S81.801D Unspecified open wound, right lower leg, subsequent encounter (principal); X58.XXXD Exposure to other specified factors, subsequent encounter; I70.203 Unspecified atherosclerosis of native arteries of extremities, bilateral legs | CPT/HCPCS: 99212 ==

== ENCOUNTER → 2022-05-27 08:13 | Outpatient (BNVA) | payer MEDICARE, OTHER, SELFPAY | PROVIDERS: PCP Family Medicine; Referring Provider Family Medicine; Visit Provider Surgery | DX: X58.XXXA Exposure to other specified factors, initial encounter (principal); S81.801A Unspecified open wound, right lower leg, initial encounter; I70.203 Unspecified atherosclerosis of native arteries of extremities, bilateral legs | CPT/HCPCS: 99213 ==

== ENCOUNTER → 2022-06-03 10:40 | Outpatient (BNVA) | payer MEDICARE, OTHER, SELFPAY | PROVIDERS: PCP Family Medicine; Referring Provider Family Medicine; Visit Provider Surgery | DX: X58.XXXA Exposure to other specified factors, initial encounter (principal); S81.801A Unspecified open wound, right lower leg, initial encounter; Z51.89 Encounter for other specified aftercare; I87.2 Venous insufficiency (chronic) (peripheral); I70.203 Unspecified atherosclerosis of native arteries of extremities, bilateral legs | CPT/HCPCS: 11042; 99213 ==

== ENCOUNTER → 2022-06-10 07:14 | Outpatient (BNVA) | payer MEDICARE, OTHER, SELFPAY | PROVIDERS: PCP Family Medicine; Referring Provider Family Medicine; Visit Provider Physical Therapy Assistant | DX: S81.801A Unspecified open wound, right lower leg, initial encounter (principal); X58.XXXA Exposure to other specified factors, initial encounter; Z51.89 Encounter for other specified aftercare | CPT/HCPCS: 99213 ==

== ENCOUNTER → 2022-06-17 07:10 | Outpatient (BNVA) | payer MEDICARE, OTHER, SELFPAY | PROVIDERS: PCP Family Medicine; Referring Provider Family Medicine; Visit Provider Physical Therapy Assistant | DX: S81.801A Unspecified open wound, right lower leg, initial encounter (principal); X58.XXXA Exposure to other specified factors, initial encounter; Z51.89 Encounter for other specified aftercare | CPT/HCPCS: 99212 ==

== ENCOUNTER → 2022-06-24 08:16 | Outpatient (BNVA) | payer MEDICARE, OTHER, SELFPAY | PROVIDERS: PCP Family Medicine; Referring Provider Family Medicine; Visit Provider Surgery | DX: X58.XXXA Exposure to other specified factors, initial encounter (principal); Z51.89 Encounter for other specified aftercare; S81.801A Unspecified open wound, right lower leg, initial encounter; I73.9 Peripheral vascular disease, unspecified | CPT/HCPCS: 11043 ==

== ENCOUNTER 2022-06-28 04:07 | Outpatient (CLI) | payer MEDICARE, OTHER, SELFPAY ==
[2022-06-28 08:32] LABS: HCT 42.6 % (36.0-46.0); HGB 13.8 g/dL (11.2-15.7); MCH 29.5 pg (27.0-33.0); MCHC 32.4 % (32.0-36.0); MCV 91 fL (80-95); MPV 12.1 fL (8.0-11.0); Platelet Count 122 10^3/uL (130-400); RBC 4.68 10^6/uL (3.93-5.22); RDW 15.5 % (11.7-14.6); RDW-SD 50.9 fL; WBC 17.34 10^3/uL (4.4-10.8)
[2022-06-28 08:41] LABS: Anion Gap 9.7 mmol/L (3-11); BUN 37 mg/dL (7-18); C-Reactive Protein 0.69 mg/dL (0.0-0.3); CO2 27.3 mmol/L (21.0-32.0); CREATININE 1.7 mg/dL (0.55-1.02); Calcium 9.6 mg/dL (8.5-10.1); Chloride 106 mmol/L (98-107); Estimated GFR 28.56 (mL/min/1.73m2); Glucose 150 mg/dL (74-106); Potassium 4.4 mmol/L (3.5-5.1); Sodium 143 mmol/L (136-145)
[2022-06-28 08:57] LABS: Absolute Eosinophil Count 0.17 10^3/uL (0.0-0.7); Absolute Lymphocyte Count 3.47 10^3/uL (1.2-3.4); Absolute Monocyte Count 4.16 10^3/uL (0.1-0.8); Absolute Neutrophil Count 9.54 10^3/uL (1.2-6.7); Atypical Lymphocytes % 5; Bands % 1; Diff Comment Manual Differential; RBC Morphology Normal
[2022-06-28 09:03] LABS: Ferritin 46 ng/mL (8-252)
== END 2022-06-28 04:08 | disposition home or self-care (01) ==
LOC: LBO 04:07
PROVIDERS: PCP Family Medicine; Visit Provider Surgery
DX: I70.203 Unspecified atherosclerosis of native arteries of extremities, bilateral legs (principal); I87.2 Venous insufficiency (chronic) (peripheral); M10.9 Gout, unspecified; M16.0 Bilateral primary osteoarthritis of hip; M34.9 Systemic sclerosis, unspecified; S81.801A Unspecified open wound, right lower leg, initial encounter; C44.310 Basal cell carcinoma of skin of unspecified parts of face
CPT/HCPCS: 36415; 80048; 99213; 73718; 82728; 85025; 86140

== ENCOUNTER 2022-06-28 09:49 | Outpatient (REF) | payer MEDICARE, OTHER, SELFPAY | END 2022-06-28 09:50 | disposition home or self-care (01) | LOC: LBN 09:49 | PROVIDERS: PCP Family Medicine; Visit Provider Surgery | DX: I70.203 Unspecified atherosclerosis of native arteries of extremities, bilateral legs (principal); I87.2 Venous insufficiency (chronic) (peripheral); R21 Rash and other nonspecific skin eruption; S81.801A Unspecified open wound, right lower leg, initial encounter | CPT/HCPCS: 87077; 87070; 87186; 87205 ==

== ENCOUNTER → 2022-06-28 16:09 | Outpatient (CLI) | payer MEDICARE, OTHER, SELFPAY ==
--- NOTE | 2022-06-28 12:02 | DI.MRI_ITS ---
Exam(s) MR LOWER EXTREMITY RT WO EXAM: MR LOWER EXTREMITY RT WO CLINICAL HISTORY: non healing wound >2hrs/suspect osteo, venous insuff, atherosclerosis, PAD TECHNIQUE: Multiplanar multisequence MRI was performed. T1 and STIR sequences were performed in all 3 planes. IV contrast was not administered because of poor renal status. Field of view is the upper 2/3 of the tibia. COMPARISON: CR XR TIB/FIB RT from 09/07/2021 FINDINGS: SKIN-SUBCUTANEOUS TISSUES: There is a posterior skin wound, corresponding to what is seen on plain fi lms of August 2021. Some fluid is seen in the subjacent subcutaneous fat layer at this level. Numerous varicose veins are noted posteromedially.. MARROW:No evidence of fracture. No bone edema. No abnormal high signal within the marrow on STIR im ages nor confluent hypointense signal on T1 images to suggest osteomyelitis. There are no significan t osseous lesions. MUSCLES: There is no evidence of abnormal signal nor mass in the visualized muscles. IMPRESSION: 1. No evidence of osteomyelitis. 2. Posterior wound as described above. DATA REPOSITORY:
== END ==
PROVIDERS: PCP Family Medicine; Visit Provider Surgery
DX: S81.801A Unspecified open wound, right lower leg, initial encounter (principal); X58.XXXA Exposure to other specified factors, initial encounter
CPT/HCPCS: 99213; 99214; 73718

== ENCOUNTER → 2022-07-01 10:46 | Outpatient (BNVA) | payer MEDICARE, OTHER, SELFPAY | PROVIDERS: PCP Family Medicine; Referring Provider Family Medicine; Visit Provider Surgery | DX: Z51.89 Encounter for other specified aftercare (principal); I83.008 Varicose veins of unspecified lower extremity with ulcer other part of lower leg; I87.2 Venous insufficiency (chronic) (peripheral); S81.801A Unspecified open wound, right lower leg, initial encounter; X58.XXXA Exposure to other specified factors, initial encounter; I73.9 Peripheral vascular disease, unspecified | CPT/HCPCS: 11042; 93922; 99212 ==

== ENCOUNTER → 2022-07-08 08:16 | Outpatient (BNVA) | payer MEDICARE, OTHER, SELFPAY | PROVIDERS: PCP Family Medicine; Referring Provider Family Medicine; Visit Provider Surgery | DX: S81.801A Unspecified open wound, right lower leg, initial encounter (principal); X58.XXXA Exposure to other specified factors, initial encounter; Z51.89 Encounter for other specified aftercare | CPT/HCPCS: 11042; 99213 ==

== ENCOUNTER → 2022-07-12 02:58 | Outpatient (CLI) | payer MEDICARE, OTHER, SELFPAY ==
--- NOTE | 2022-07-12 07:45 | DI.CT_ITS ---
Exam(s) CT ABD AORTA CTA W RUNOFF EXAM: CT ABD AORTA CTA W RUNOFF CLINICAL HISTORY: non healing wound RLE,VENOUS INSUFF BOTH LOWER EXT. TECHNIQUE: Imaging Protocol: Axial CT angiography was performed with multi-slice acquisition and mu lti-planar and/or 3D reconstructions. CONTRAST MATERIAL: Intravenous: Omnipaque 350 Contrast volume:150 mL Oral: No COMPARISON: No exams were available for comparison FINDINGS: Vascular Structures: Abdomen and pelvis: Atherosclerosis is present. Celiac [place]/SMA: No evidence of occlusion or significant stenosis. Renal Arteries: No evidence of occlusion or significant stenosis. There is a single renal artery perf using each kidney. Aorta: No aneurysm, occlusion or significant stenosis. No dissection. Atherosclerosis is present. Iliac Arteries: No evidence of occlusion or significant stenosis. [id number] atherosclerosis. Lower extremities: Right: Common Femoral: No evidence of occlusion. There is atherosclerosis resulting in 75 percent stenosis. Femoral: There is no evidence of occlusion. There is severe stenosis secondary to mural thrombus and atherosclerosis. Deep Femoral Artery: No evidence of occlusion or significant stenosis. Popliteal: No evidence of occlusion or significant stenosis. There is atherosclerosis present. Knee Trifurcation: No evidence of occlusion or significant stenosis. Anterior Tibial: There is occlusion of the anterior tibial artery just distal to the trifurcation. Posterior Tibial: No evidence of occlusion or significant stenosis. Atherosclerosis is present. Peroneal:No evidence of occlusion or significant stenosis. Dorsalis Pedis: There is reconstitution of the dorsalis pedis just distal to the ankle joint. Left: Common Femoral: There is atherosclerosis without occlusion. Moderate stenosis is present. Femoral: There is atherosclerosis with moderately severe stenosis. No occlusion is present. Deep femoral artery: No evidence of occlusion or significant stenosis. Atherosclerosis is present. Popliteal: No evidence ofocclusion or significant stenosis. Knee Trifurcation: No evidence of occlusion or significant stenosis. Anterior tibial: No evidence of occlusion or significant stenosis. Posterior Tibial: No evidence of occlusion or significant stenosis. Peroneal: No evidence of occlusion or significant stenosis. Dorsalis Pedis: No evidence of occlusion or significant stenosis. Soft Tissues: Lung bases: Clear. Liver: Normal density. No measurable mass. Gallbladder and biliary tract: No radiodense calculus or dilation. Pancreas: Normal density, no abnormal calcifications or inflammatory process. Spleen: Normal. Kidneys: Normal size, contour and axis. No radiodense stones or obstructive uropathy. There is a simp le cyst on the right kidney. No follow-up is recommended. Adrenal glands: No masses seen. Aorta: Abdominal portion non-dilated. Atherosclerosis. Bladder: Symmetric distention, no gross wall thickening. Bowel: No obstruction or bowel wall thickening. The appendix is unremarkable. There is a small hiata l hernia. There is diverticulosis of the colon, but no evidence of acute diverticulitis. Peritoneal cavity: No ascites, collection or mesenteric inflammatory response. No free air. Bones: Within normal limits for the patient's age. Soft tissues: There is a moderate size fat containing umbilical hernia. Reproductive organs uterine fibroids are present. IMPRESSION: 1. 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 2. Extensive atherosclerosis with resulting stenosis. This is most marked in the right common femora l and femoral arteries. RADIATION DOSE DELIVERED: 1,475.53mGy.cm Total DLP 1,475.53mGy.cm Total DLP DATA REPOSITORY: All CT scans at this facility are submitted to the National Radiology Data Registry (NRDR) Dose Index Registry (DIR) with the [employer] (ACR). RADIATION OPTIMIZATION: All CT scans at this facility use at least one of these dose optimization te chniques: automated exposure control; mA and/or kV adjustment per patient size (includes targeted exa ms where dose is matched to clinical indication); or iterative reconstruction.
[2022-07-12 13:10] LABS: Anion Gap 8.7 mmol/L (3-11); BUN 16 mg/dL (7-18); CO2 29.3 mmol/L (21.0-32.0); Calcium 10.2 mg/dL (8.5-10.1); Chloride 99 mmol/L (98-107); Estimated GFR 52.69 (mL/min/1.73m2); Glucose 105 mg/dL (74-106); Potassium 4.1 mmol/L (3.5-5.1); Sodium 137 mmol/L (136-145)
[2022-07-12] MEDS: Omnipaque 350 MG/ML 100 ML BTL IJ ×2 (14:38→14:39)
[2022-07-12] MEDS: Normal Saline Flush 10 ML SYR IVP (14:41)
== END ==
PROVIDERS: PCP Family Medicine; Visit Provider Surgery
DX: I70.203 Unspecified atherosclerosis of native arteries of extremities, bilateral legs; E08.622 Diabetes mellitus due to underlying condition with other skin ulcer; I10 Essential (primary) hypertension; I27.20 Pulmonary hypertension, unspecified; I35.0 Nonrheumatic aortic (valve) stenosis; I87.2 Venous insufficiency (chronic) (peripheral); L97.912 Non-pressure chronic ulcer of unspecified part of right lower leg with fat layer exposed; M54.9 Dorsalgia, unspecified; R79.89 Other specified abnormal findings of blood chemistry; Z86.69 Personal history of other diseases of the nervous system and sense organs; Z87.891 Personal history of nicotine dependence; M34.9 Systemic sclerosis, unspecified
CPT/HCPCS: 75635; 80048; J3490

== ENCOUNTER → 2022-07-15 08:16 | Outpatient (BNVA) | payer MEDICARE, OTHER, SELFPAY | PROVIDERS: PCP Family Medicine; Referring Provider Family Medicine; Visit Provider Surgery | DX: S81.801A Unspecified open wound, right lower leg, initial encounter (principal); X58.XXXA Exposure to other specified factors, initial encounter; I70.201 Unspecified atherosclerosis of native arteries of extremities, right leg; Z51.89 Encounter for other specified aftercare | CPT/HCPCS: 11042; 99212 ==

== ENCOUNTER → 2022-07-22 08:23 | Outpatient (BNVA) | payer MEDICARE, OTHER, SELFPAY | PROVIDERS: PCP Family Medicine; Referring Provider Family Medicine; Visit Provider Surgery | DX: S81.801A Unspecified open wound, right lower leg, initial encounter (principal); X58.XXXA Exposure to other specified factors, initial encounter; E08.622 Diabetes mellitus due to underlying condition with other skin ulcer; L97.912 Non-pressure chronic ulcer of unspecified part of right lower leg with fat layer exposed; I10 Essential (primary) hypertension; I70.201 Unspecified atherosclerosis of native arteries of extremities, right leg; Z87.891 Personal history of nicotine dependence | CPT/HCPCS: 11042; 99213 ==

== ENCOUNTER → 2022-07-29 11:18 | Outpatient (BNVA) | payer MEDICARE, OTHER, SELFPAY | PROVIDERS: PCP Family Medicine; Referring Provider Family Medicine; Visit Provider Surgery | DX: S81.801A Unspecified open wound, right lower leg, initial encounter (principal); X58.XXXA Exposure to other specified factors, initial encounter; Z51.89 Encounter for other specified aftercare | CPT/HCPCS: 11042; 99213 ==

== ENCOUNTER → 2022-08-05 08:19 | Outpatient (BNVA) | payer MEDICARE, OTHER, SELFPAY | PROVIDERS: PCP Family Medicine; Referring Provider Family Medicine; Visit Provider Surgery | DX: S81.801A Unspecified open wound, right lower leg, initial encounter (principal); X58.XXXA Exposure to other specified factors, initial encounter; Z51.89 Encounter for other specified aftercare | CPT/HCPCS: 11042; 99212 ==

== ENCOUNTER → 2022-08-12 07:48 | Outpatient (BNVA) | payer MEDICARE, OTHER, SELFPAY | PROVIDERS: PCP Family Medicine; Referring Provider Family Medicine; Visit Provider Surgery | DX: Z51.89 Encounter for other specified aftercare (principal); I70.201 Unspecified atherosclerosis of native arteries of extremities, right leg; I10 Essential (primary) hypertension; E08.622 Diabetes mellitus due to underlying condition with other skin ulcer; L97.912 Non-pressure chronic ulcer of unspecified part of right lower leg with fat layer exposed; Z87.891 Personal history of nicotine dependence | CPT/HCPCS: 99211 ==

== ENCOUNTER → 2022-08-19 08:18 | Outpatient (BNVA) | payer MEDICARE, OTHER, SELFPAY | PROVIDERS: PCP Family Medicine; Referring Provider Family Medicine; Visit Provider Surgery | DX: S81.801A Unspecified open wound, right lower leg, initial encounter (principal); X58.XXXA Exposure to other specified factors, initial encounter; Z51.89 Encounter for other specified aftercare | CPT/HCPCS: 99212 ==

== ENCOUNTER → 2022-08-26 08:21 | Outpatient (BNVA) | payer MEDICARE, OTHER, SELFPAY | PROVIDERS: PCP Family Medicine; Referring Provider Family Medicine; Visit Provider Surgery | DX: S81.801A Unspecified open wound, right lower leg, initial encounter (principal); X58.XXXA Exposure to other specified factors, initial encounter; Z51.89 Encounter for other specified aftercare | CPT/HCPCS: 99212 ==

== ENCOUNTER 2022-08-30 08:30 | Day surgery (SDC) | payer MEDICARE, OTHER, SELFPAY ==
--- NOTE | 2022-08-30 06:39 | W.ANESPRE ---
General Info Date of Service Date Performed: 08/30/22 Height: 5 ft Weight: 90.718 kg Body Mass Index (BMI): 39.0 Surgical Procedure: Operation Date: 08/30/22 11:40 Proposed Procedure Side Surgeon p Cataract Extraction with IOL Implant Left Iván Zacarias MD Meds Allergies and Home Medications Allergies Allergy/AdvReac Type Severity Reaction Status Date / Time duloxetine Allergy Intermediate states Verified 08/27/22 10:38 keeps me awake all night gabapentin AdvReac Severe feet swell Verified 08/27/22 10:38 adhesive tape AdvReac Intermediate skin Verified 08/27/22 10:38 itching Home Medication Medication Instructions Recorded allopurinol 100 mg tablet 300 mg PO DAILY 10/03/15 amlodipine 5 mg tablet 5 mg PO DAILY 10/03/15 aspirin 81 mg tablet,delayed 81 mg PO DIRECTED 10/03/15 release (Lo-Dose Aspirin) enalapril maleate 20 mg tablet 40 mg PO DIRECTED 10/03/15 metoprolol tartrate 100 mg tablet 200 mg PO DIRECTED 10/03/15 multivitamin 1 tab PO DIRECTED 10/03/15 ascorbic acid (vitamin C) 1,000 mg 1,000 mg PO DAILY 04/29/18 tablet (Vitamin C) ibuprofen 200 mg tablet 600 mg PO Q8H PRN PRN 04/29/18 rosuvastatin 10 mg tablet 10 mg PO DAILY 09/11/21 acetaminophen 500 mg capsule 500 mg PO DIRECTED 01/19/22 L. acidophilus,casei,rhamnosus 50 1 cap PO DAILY #30 caps 06/28/22 billion cell capsule,delayed release (Bio-K plus) cilostazol 100 mg tablet 100 mg PO BID #60 tabs 07/08/22 vit A 2,400 mcg-D3 18.75 mcg-vit E 2 tab PO DAILY 07/08/22 67 mg-K1 400 mcg-zinc chew tablet (ADEK Gummies Plus Zinc) zinc acetate 50 mg (zinc) capsule 50 mg PO DAILY 07/29/22 Current Visit Medications: Current Medications Generic Name Dose Route Start Last Admin Trade Name Freq PRN Reason Stop Dose Admin Acetaminophen 1,000 mg 08/30/22 06:00 Acetaminophen 500 Mg Tab PO Q4H PRN PRN Miscellaneous Medication 0 ml 08/30/22 06:00 Prednisolone 1%, Moxifloxacin 0.5%, Nepafenac 0.1% 5ml Btl OS DIRECTED [facility] Miscellaneous Medication 0 ml 08/30/22 06:00 Tropicam./Phenyleph. 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 due to underlying condition, with fat layer exposed E08.622, L97.912 Hx of smoking Z87.891 Elevated serum creatinine R79.89 Venous insufficiency of both lower extremities I87.2 Atherosclerosis of artery of both lower extremities I70.203 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 Non-healing wound of right lower extremity S81.801A Basal cell carcinoma (BCC) of back C44.519 Venous stasis ulcer limited to breakdown of skin with varicose veins I83.009, L97.901 PAD (peripheral artery disease) I73.9 Osteoarthritis, hip, bilateral M16.0 Limited mobility Z74.09 Hard of hearing H91.90 Basal cell carcinoma of skin of face C44.310 Medical History Medical History Aortic stenosis Chronic back pain Gout History of vision disorder only peripheral vision in R eye 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 Internal carotid artery stenosis Left ICA stenosis Pulmonary hypertension Scleroderma Surgical History Surgical History History of local excision of skin lesion (~10/14/21) History of local excision of skin lesion (~01/19/22) [place], right side chin, right lower leg trauma from dog bite 02/04/2020 Tobacco Smoking/Tobacco Use Status: Former Tobacco Use Alcohol Alcohol Intake: current Alcohol intake frequency: holidays/special occasions only Substance Use Substance use: Never Substance use type: does not use Vital Signs and Lab Results Vital Signs Most Recent Vital Signs in EMR: Temp Pulse Resp BP Pulse Ox 36.5 C 79 18 172/66 H 94 08/30/22 08:45 08/30/22 08:45 08/30/22 08:45 08/30/22 08:45 08/30/22 08:45 Lab Results Blood Type / Crossmatch: No Data to Display Complete Blood Count: No Data to Display Complete Metabolic Panel: No Data to Display Liver Function Panel: No Data to Display Coagulation Panel: No Data to Display Cardiac Panel: No Data to Display Arterial Blood Gas: No Data to Display Venous Blood Gas: No Data to Display Pancreas Panel: No Data to Display Thyroid Panel: No Data to Display Infectious Disease: No Data to Display Blood Cultures: No Data to Display Toxicology Panel: No Data to Display Imaging and Studies Imaging and Studies Study information below may be from another EMR and interpreted by another provider. Please see original notes in EMR for more complete details. Echocardiogram Summary: 08/26/2020 Conclusion Mild concentric left ventricular hypertrophy. Estimated ejection fraction is 55 to 60%. There are no segmental wall motion abnormalities Normal right ventricular size and systolic function Normal right and left atrial size The aortic valve is sclerotic and trileaflet. There is mild to moderate aortic stenosis. Peak gradient is 40, mean gradient 23. Calculated aortic valve area is 1.55 cm???. Trace aortic regurgitation Moderate mitral annular calcification. Thickened mitral leaflets. Mild mitral stenosis and regurgitation Structurally normal tricuspid and pulmonic valves Trace to mild tricuspid and pulmonic regurgitation Mild pulmonary hypertension, RVSP 37 mmHg Compared to previous study from January 2019, the degree of aortic stenosis appears similar. 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 On the right, there appears to be an internal carotid artery occlusion at the bifurcation. High velocity flow noted in external carotid artery. On the left, there is increased velocity at the distal internal carotid artery consistent with 50-60% luminal diameter stenosis. There is bilateral antegrade vertebral flow. CONCLUSION: Findings consistent with complete occlusion, right ICA, at its origin. A 50-60% luminal diameter stenosis, left ICA. Anesthesia Assessment and Plan Anesthesia History Personal History: No History of Anesthesia Complications Family History: No Family History of Anesthesia Complications Exercise Tolerance Exercise Tolerance: Metabolic Equivalents<4 Cardiac & Pulmonary Exam Cardiac Exam: Normal S1/S2 Heart Sounds Pulmonary Exam: Clear Bilateral Breath Sounds Implantable Cardiac Device Does patient have a Pacemaker or an ICD?: No Airway Exam Known Difficult Airway: No Mallampati Class: 3 Mouth Opening: Normal (> 3cm) Thyromental Distance: Greater than 3 cm Neck Range of Motion: Limited ROM Neck Circumference: Normal Teeth Condition: Normal Dentition ASA Classification ASA Score: ASA 4 Emergency Case?: No NPO Status NPO Status: NPO Clears >2 hours, Solids >8 hours Anesthesia Plan Resuscitation Status: Full Code Anesthesia Technique: MAC Anesthesia Airway Planned: Natural Airway Monitors Used: Standard Monitors Preoperative Comments:: 85 yo female for cataract removal. Sig PMHx: aortic stenosis (moderate), PHTN (RVSP 44), HTN, DMII, PVD/PAD (right ant tibial artery occusion, extensive atherosclerosis with stenosis femorals), [place], carotid stenosis (right side occusion, with left stenosis), scleroderma, former smoker, occ EtOH. Discussed plan of no MKO due to age and medical history. Agrees to proceed
[2022-08-30 08:45] VITALS: BP 172/66; PULSE 79; RESP 18; TEMP 36.5; O2SAT 94
[2022-08-30] MEDS: Tropicam./Phenyleph. (1/2.5%) 5 ML BTL OS ×3 (09:01→09:13)
[2022-08-30 09:15] VITALS: BMI 39.0
[2022-08-30] MEDS: Tetracaine 0.5% 4 ML BTL OS (10:06)
[2022-08-30] MEDS: Lidocaine 2% Jelly 6 ML SYR (10:07)
[2022-08-30] MEDS: Povidone-Iodine Ophth 30 ML BTL (10:07)
[2022-08-30] MEDS: Duovisc Viscoelastic System EACH 1 EACH (10:14)
[2022-08-30] MEDS: Balanced Salt Soln.-PLUS 500 ML BAG (10:14)
[2022-08-30] MEDS: Trypan Blue 0.06% 0.5 ML SYR (10:19)
[2022-08-30 10:36] VITALS: BP 155/59; PULSE 76; RESP 16; TEMP 36; O2SAT 95
--- NOTE | 2022-08-30 10:39 | W.PM.DSUDISC ---
Discharge Plan Disposition Patient Disposition: HOME Condition: Good Discharge Details Attending Provider: Iván Zacarias Primary Care Provider: SANDRA WU Home Meds and New Rx's Prescriptions: No Action rosuvastatin 10 mg tablet 10 mg PO DAILY Bio-K plus 50 billion cell capsule,delayed release(DR/EC) 1 cap PO DAILY Qty: 30 0RF Rx Instructions: Finish all ADEK Gummies Plus Zinc 2,400 mcg-18.75 [id number] tablet,chewable 2 tab PO DAILY cilostazol 100 mg tablet 100 mg PO BID Qty: 60 12RF Rx Instructions: do not take ibuprofen while on this medication zinc acetate 50 mg (zinc) capsule 50 mg PO DAILY multivitamin 1 EACH tablet 1 tab PO DIRECTED metoprolol tartrate 100 MG tablet 200 mg PO DIRECTED enalapril maleate 20 MG tablet 40 mg PO DIRECTED amlodipine 5 MG tablet 5 mg PO DAILY allopurinol 100 MG tablet 300 mg PO DAILY aspirin [Lo-Dose Aspirin] 81 MG tablet,delayed release (DR/EC) 81 mg PO DIRECTED ascorbic acid (vitamin C) [Vitamin C] 1,000 MG tablet 1,000 mg PO DAILY ibuprofen 200 MG tablet 600 mg PO Q8H PRN PRN acetaminophen [Tylenol Extra Strength] 500 mg Capsule 500 mg PO DIRECTED Discharge Instructions Stand Alone Forms: Post-op Topical Cataract, Steve Lowe (DSU) Discharge Orders Discharge Orders: Discharge Order (Routine); Ordered 08/30/22 Ordered By: Iván Zacarias DS: Diagnosis Discharge Diagnosis (1) Cortical cataract of left eye: Status: Resolved (2) Nuclear sclerotic cataract of left eye: Status: Resolved (3) Posterior subcapsular age-related cataract of left eye: Status: Resolved
--- NOTE | 2022-08-30 10:41 | ROE_ITS ---
Date of service: 08/30/22 Time of Service: 10:41 Operative Note Operative Note DATE OF PROCEDURE: 08/30/22 PRE-OP DIAGNOSIS: Nuclear/cortical/posterior subcapsular cataract, left eye Poor red reflex, left eye secondary to cataract POST-OP DIAGNOSIS: same PROCEDURE: Cataract extraction using phacoemulsification with intraocular lens implant, left eye, using capsular staining with Vision Blue SURGEON: Iván Zacarias ANESTHESIA TYPE: Local By Surgeon and MAC Refer to Anesthesia Record COMPLICATIONS: None Patient was transported to: same day Patient's condition: stable Implants: Guilherme and Guilherme / [employer] Tecnis [id number] Indications: Progressive decreased vision due to cataract, left eye, with poor red reflex Procedure Description: CATARACT SURGERY OPERATIVE REPORT PREOPERATIVE DIAGNOSIS: 1. Nuclear/cortical/posterior subcapsular cataract, left eye 2. Poor red reflex secondary to #1 POSTOPERATIVE DIAGNOSIS: Same OPERATION: 1. Cataract extraction using phacoemulsification with posterior chamber intraocular lens implant, left eye. 2. Capsular staining with Vision Blue IOL: IOL Emergency Services Professional/Model: Guilherme & Guilherme / LIGIA Tecnis [id number] IOL Power: + 24.5 diopters IOL Serial Number: [id number] Optic Diameter: 6.0 mm Haptic/Overall Diameter: 13.0 mm PHACO INFO: Doug [employer]urion Vision System with OZil and Active Fluidics Cumulative Dispersed Energy (CDE): 10.15 seconds SURGEON: Iván Zacarias MD, DOMENICO ANESTHESIA: Monitored A [facility] (MAC), with local sub-tenon's anesthetic infiltration COMPLICATIONS: None SPECIMENS: None INDICATIONS FOR PROCEDURE: The patient is an 86-year-old lady with history of diminished visual acuity in her left eye secondary to the development of significant nuclear/cortical/posterior subcapsular cataract. She is significantly symptomatic that she desires cataract surgery and attempt to improve and maximize her vision. The option of cataract surgery was offered to the patient and she wished to proceed. PROCEDURE: The correct surgical eye was identified and marked as the left eye and the pupil was dilated in the preoperative area using mydriatics and cycloplegics. The dilated pupil size was 5.0 mm. The patient elected to proceed without oral sedation. The patient was brought to the operating room where cardiopulmonary monitoring was instituted and surgical time-out was performed, confirming the correct operative eye and IOL power. Topical anesthesia was administered and ophthalmic povidone-iodine 5% was instilled into the conjunctival fornices. Lidocaine gel was applied to the cornea and the berna-ocular area was prepped with Betadine 10% solution and draped in the usual sterile fashion for intraocular surgery, including an aperture drape. A Tegaderm transparent film dressing was cut in half and used to cover the lashes and lid margins. Care was taken to sequester the lashes and lid margins under the Tegaderm dressing. A lid speculum was placed between the lids of the operative eye and the Doug LuxOR Revalia operating microscope was maneuvered into position. Michelle scissors were then used to make a conjunctival buttonhole approximately 6mm posterior to the limbus in the inferonasal quadrant. Blunt dissection was carried out to expose bare sclera, and a blunt-tipped sub-tenon?s anesthesia cannula was introduced and passed posteriorly along the globe where non- preserved plain lidocaine was injected into posterior sub-Tenon?s space. A sideport knife was used to make a paracentesis port superiorly/superiortemporally. Intraocular phenylephrine/lidocaine was injected int the anterior chamber.. Air was then injected into the anterior chamber, followed by Vision Blue, which was painted over the anterior capsule and then irrigated out using BSS. The anterior chamber was filled with viscoelastic. A keratome knife was used to create a 2-plane near clear corneal tunnel extending approximately 2 mm into clear cornea temporally. A flap was raised on the anterior capsule and capsulorhexis forceps were used to complete a continuous curvilinear capsulorhexis of 5.0 mm. The anterior capsule was noted to be quite thin Balanced salt solution was then used to perform cortical cleaving hydrodissection and nuclear hydrodelineation until the lens could be freely rotated within the capsular bag. The lens nucleus was then disassembled and removed within the capsular bag and iris plane using phacoemulsification. Residual cortical material was removed using the 45-degree angled silicone I/A tip with 0.3mm port. The posterior capsule was carefully polished to remove as much residual lens epithelial cells as safely possible. There was some residual posterior subcapsular plaque inferior temporally which could not be safely removed. The capsular bag was then inflated and the anterior chamber deepened with viscoelastic. The lens implant described above was inserted into the capsular bag using the LIGIA [place] Injector. A Kuglen hook was used to dial the IOL into position. Residual viscoelastic was then removed first from posterior to the IOL, then from the anterior chamber using the I/A handpiece. The lens implant was noted to center nicely within the capsular bag. The incisions were stromally hydrated, and the anterior chamber was reformed using BSS. Then 0.5cc of moxifloxacin 1.0mg/ml were injected into the capsular bag and anterior chamber. The incisions were checked with a Weck spear and found to be secure. Several drops of ophthalmic povidone-iodine 5% were then applied to the eye followed by two drops of Imprimis combination prednisolone/moxifloxacin/nepafenac solution. The drapes were removed and a clear plastic protective eye shield was placed over the eye. The patient was then returned to Same Day Surgery in stable condition.
--- NOTE | 2022-08-30 10:48 | W.ANESPOSTOP ---
Postoperative Evaluation Date, Time and Location Date Performed: 08/30/22 Time Performed: 10:48 Patient Location: Day Surgery Unit Vital Signs Most Recent Imported Vital Signs: Most Recent Vital Signs Temp Pulse Resp BP Pulse Ox 36 C L 76 16 155/59 H 95 08/30/22 10:36 08/30/22 10:36 08/30/22 10:36 08/30/22 10:36 08/30/22 10:36 Pain Score Most Recent Pain Score: Most Recent Pain Score Pain Level 0 08/30/22 10:36 Assessment Mental Status: Awake (Alert & Oriented to Patient Baseline) Airway and Respiratory Function: Patent airway with normal (patient baseline) respiratory exam Cardiovascular Function: Hemodynamically Stable Hydration Status: Adequately Hydrated Nausea & Vomiting: No Nausea or Vomiting Pain: Pt. Denies Any Pain Peripheral Nerve Block: Patient did not receive a nerve block
== END 2022-08-30 10:55 | disposition home or self-care (01) ==
PROVIDERS: PCP Family Medicine; Visit Provider Ophthalmology
PROC: (CPT 66982; principal; 2022-08-30 11:30)
DX: H25.042 Posterior subcapsular polar age-related cataract, left eye (principal); H26.8 Other specified cataract
CPT/HCPCS: 66982; V2632

== ENCOUNTER → 2022-09-02 10:44 | Outpatient (BNVA) | payer MEDICARE, OTHER, SELFPAY | PROVIDERS: PCP Family Medicine; Referring Provider Family Medicine; Visit Provider Surgery | DX: Z51.89 Encounter for other specified aftercare (principal); I70.201 Unspecified atherosclerosis of native arteries of extremities, right leg; L97.912 Non-pressure chronic ulcer of unspecified part of right lower leg with fat layer exposed; I10 Essential (primary) hypertension; E11.9 Type 2 diabetes mellitus without complications | CPT/HCPCS: 11042; 99212 ==

== ENCOUNTER → 2022-09-09 08:19 | Outpatient (BNVA) | payer MEDICARE, OTHER, SELFPAY | PROVIDERS: PCP Family Medicine; Referring Provider Family Medicine; Visit Provider Surgery | DX: S81.801D Unspecified open wound, right lower leg, subsequent encounter (principal); X58.XXXD Exposure to other specified factors, subsequent encounter; Z51.89 Encounter for other specified aftercare; I70.201 Unspecified atherosclerosis of native arteries of extremities, right leg; E08.622 Diabetes mellitus due to underlying condition with other skin ulcer | CPT/HCPCS: 99212 ==

== ENCOUNTER → 2022-09-23 08:19 | Outpatient (BNVA) | payer MEDICARE, OTHER, SELFPAY | PROVIDERS: PCP Family Medicine; Referring Provider Family Medicine; Visit Provider Surgery | DX: I70.203 Unspecified atherosclerosis of native arteries of extremities, bilateral legs; E08.622 Diabetes mellitus due to underlying condition with other skin ulcer; L97.912 Non-pressure chronic ulcer of unspecified part of right lower leg with fat layer exposed; S81.801D Unspecified open wound, right lower leg, subsequent encounter; X58.XXXD Exposure to other specified factors, subsequent encounter | CPT/HCPCS: 99211; 99212 ==

== ENCOUNTER → 2022-09-30 10:50 | Outpatient (BNVA) | payer MEDICARE, OTHER, SELFPAY | PROVIDERS: PCP Family Medicine; Referring Provider Family Medicine; Visit Provider Surgery | DX: S81.801D Unspecified open wound, right lower leg, subsequent encounter (principal); X58.XXXD Exposure to other specified factors, subsequent encounter; Z51.89 Encounter for other specified aftercare; I70.203 Unspecified atherosclerosis of native arteries of extremities, bilateral legs | CPT/HCPCS: 11043; 99212 ==

== ENCOUNTER → 2022-10-07 08:18 | Outpatient (BNVA) | payer MEDICARE, OTHER, SELFPAY | PROVIDERS: PCP Family Medicine; Referring Provider Family Medicine; Visit Provider Surgery | DX: Z51.89 Encounter for other specified aftercare (principal); S81.801D Unspecified open wound, right lower leg, subsequent encounter; X58.XXXD Exposure to other specified factors, subsequent encounter | CPT/HCPCS: 99211; 99212 ==

== ENCOUNTER → 2022-10-13 08:27 | Outpatient (BNVA) | payer MEDICARE, OTHER, SELFPAY | PROVIDERS: PCP Family Medicine; Referring Provider Family Medicine; Visit Provider Surgery | DX: S81.801D Unspecified open wound, right lower leg, subsequent encounter (principal); X58.XXXD Exposure to other specified factors, subsequent encounter; Z51.89 Encounter for other specified aftercare | CPT/HCPCS: 99213 ==

== ENCOUNTER → 2022-10-28 12:46 | Outpatient (BNVA) | payer MEDICARE, OTHER, SELFPAY | PROVIDERS: PCP Family Medicine; Referring Provider Family Medicine; Visit Provider Surgery | DX: S81.801D Unspecified open wound, right lower leg, subsequent encounter (principal); X58.XXXD Exposure to other specified factors, subsequent encounter | CPT/HCPCS: 99213 ==

== ENCOUNTER → 2022-11-12 07:56 | Outpatient (BNVA) | payer MEDICARE, OTHER, SELFPAY | PROVIDERS: PCP Family Medicine; Referring Provider Family Medicine; Visit Provider Surgery | DX: S81.801D Unspecified open wound, right lower leg, subsequent encounter (principal); X58.XXXD Exposure to other specified factors, subsequent encounter | CPT/HCPCS: 99211 ==

== ENCOUNTER → 2022-11-19 08:33 | Outpatient (BNVA) | payer MEDICARE, OTHER, SELFPAY | PROVIDERS: PCP Family Medicine; Referring Provider Family Medicine; Visit Provider Surgery | DX: Z51.89 Encounter for other specified aftercare (principal); S81.801D Unspecified open wound, right lower leg, subsequent encounter; X58.XXXD Exposure to other specified factors, subsequent encounter | CPT/HCPCS: 99212 ==

== ENCOUNTER → 2022-11-26 08:35 | Outpatient (BNVA) | payer MEDICARE, OTHER, SELFPAY | PROVIDERS: PCP Family Medicine; Referring Provider Family Medicine; Visit Provider Surgery | DX: S81.801D Unspecified open wound, right lower leg, subsequent encounter (principal); X58.XXXD Exposure to other specified factors, subsequent encounter; E08.622 Diabetes mellitus due to underlying condition with other skin ulcer; I87.2 Venous insufficiency (chronic) (peripheral); Z87.891 Personal history of nicotine dependence | CPT/HCPCS: 99212 ==

== ENCOUNTER → 2022-12-03 10:52 | Outpatient (BNVA) | payer MEDICARE, SELFPAY | PROVIDERS: PCP Family Medicine; Referring Provider Family Medicine; Visit Provider Surgery | DX: S81.801D Unspecified open wound, right lower leg, subsequent encounter (principal); X58.XXXD Exposure to other specified factors, subsequent encounter | CPT/HCPCS: 99211 ==

== ENCOUNTER → 2022-12-09 08:23 | Outpatient (BNVA) | payer MEDICARE, SELFPAY | PROVIDERS: PCP Family Medicine; Referring Provider Family Medicine; Visit Provider Surgery | DX: X58.XXXD Exposure to other specified factors, subsequent encounter (principal); S81.801D Unspecified open wound, right lower leg, subsequent encounter; E08.622 Diabetes mellitus due to underlying condition with other skin ulcer; I73.9 Peripheral vascular disease, unspecified | CPT/HCPCS: 99212 ==

== ENCOUNTER → 2022-12-16 08:24 | Outpatient (BNVA) | payer MEDICARE, SELFPAY | PROVIDERS: PCP Family Medicine; Referring Provider Family Medicine; Visit Provider Surgery | DX: S81.801D Unspecified open wound, right lower leg, subsequent encounter (principal); X58.XXXD Exposure to other specified factors, subsequent encounter | CPT/HCPCS: 99211 ==

== ENCOUNTER → 2022-12-23 08:19 | Outpatient (BNVA) | payer MEDICARE, SELFPAY | PROVIDERS: PCP Family Medicine; Referring Provider Family Medicine; Visit Provider Surgery | DX: S81.801D Unspecified open wound, right lower leg, subsequent encounter (principal); X58.XXXD Exposure to other specified factors, subsequent encounter; I73.9 Peripheral vascular disease, unspecified | CPT/HCPCS: 97605; 99213 ==

== ENCOUNTER → 2022-12-27 08:22 | Outpatient (BNVA) | payer MEDICARE, SELFPAY | PROVIDERS: PCP Family Medicine; Referring Provider Family Medicine; Visit Provider Surgery | DX: S81.801D Unspecified open wound, right lower leg, subsequent encounter (principal); X58.XXXD Exposure to other specified factors, subsequent encounter; I70.201 Unspecified atherosclerosis of native arteries of extremities, right leg; I87.2 Venous insufficiency (chronic) (peripheral); E08.622 Diabetes mellitus due to underlying condition with other skin ulcer; L97.912 Non-pressure chronic ulcer of unspecified part of right lower leg with fat layer exposed | CPT/HCPCS: 99213 ==

== ENCOUNTER → 2022-12-30 10:47 | Outpatient (BNVA) | payer MEDICARE, SELFPAY | PROVIDERS: PCP Family Medicine; Referring Provider Family Medicine; Visit Provider Surgery | DX: S81.801D Unspecified open wound, right lower leg, subsequent encounter (principal); X58.XXXD Exposure to other specified factors, subsequent encounter; I70.201 Unspecified atherosclerosis of native arteries of extremities, right leg; I70.203 Unspecified atherosclerosis of native arteries of extremities, bilateral legs; I87.2 Venous insufficiency (chronic) (peripheral) | CPT/HCPCS: 97605; 99212 ==

== ENCOUNTER → 2023-01-04 10:54 | Outpatient (BNVA) | payer MEDICARE, SELFPAY | PROVIDERS: PCP Family Medicine; Referring Provider Family Medicine; Visit Provider Physical Therapy Assistant | DX: S61.451A Open bite of right hand, initial encounter (principal); S61.452A Open bite of left hand, initial encounter; S81.801D Unspecified open wound, right lower leg, subsequent encounter; W54.0XXA Bitten by dog, initial encounter | CPT/HCPCS: 99214 ==

== ENCOUNTER → 2023-01-06 08:19 | Outpatient (BNVA) | payer MEDICARE, SELFPAY | PROVIDERS: PCP Family Medicine; Referring Provider Family Medicine; Visit Provider Surgery | DX: S81.801D Unspecified open wound, right lower leg, subsequent encounter (principal); S61.451A Open bite of right hand, initial encounter; S61.452A Open bite of left hand, initial encounter; W54.0XXA Bitten by dog, initial encounter | CPT/HCPCS: 97605; 99213 ==

== ENCOUNTER 2023-01-06 09:03 | Outpatient (REF) | payer MEDICARE, SELFPAY | END 2023-01-06 09:04 | disposition home or self-care (01) | LOC: LBN 09:03 | PROVIDERS: PCP Family Medicine; Visit Provider Surgery | DX: S81.801A Unspecified open wound, right lower leg, initial encounter; W54.0XXA Bitten by dog, initial encounter | CPT/HCPCS: 87077; 87070; 87186; 87205 ==

== ENCOUNTER → 2023-01-12 08:55 | Outpatient (BNVA) | payer MEDICARE, SELFPAY | PROVIDERS: PCP Family Medicine; Referring Provider Family Medicine; Visit Provider Physical Therapy Assistant | DX: Z51.89 Encounter for other specified aftercare (principal); S81.801D Unspecified open wound, right lower leg, subsequent encounter; X58.XXXD Exposure to other specified factors, subsequent encounter | CPT/HCPCS: 97605 ==

== ENCOUNTER → 2023-01-18 08:19 | Outpatient (BNVA) | payer MEDICARE, SELFPAY | PROVIDERS: PCP Family Medicine; Referring Provider Family Medicine; Visit Provider Surgery | DX: S81.801D Unspecified open wound, right lower leg, subsequent encounter (principal); S61.451D Open bite of right hand, subsequent encounter; S61.452D Open bite of left hand, subsequent encounter; W54.0XXD Bitten by dog, subsequent encounter | CPT/HCPCS: 99211; 99213 ==

== ENCOUNTER → 2023-01-24 08:19 | Outpatient (BNVA) | payer MEDICARE, SELFPAY | PROVIDERS: PCP Family Medicine; Referring Provider Family Medicine; Visit Provider Surgery | DX: S81.801A Unspecified open wound, right lower leg, initial encounter (principal); X58.XXXA Exposure to other specified factors, initial encounter | CPT/HCPCS: 97605; 99212 ==

== ENCOUNTER → 2023-02-07 09:15 | Outpatient (BNVA) | payer MEDICARE, SELFPAY | PROVIDERS: PCP Family Medicine; Referring Provider Family Medicine; Visit Provider Surgery | DX: S81.801D Unspecified open wound, right lower leg, subsequent encounter (principal); X58.XXXD Exposure to other specified factors, subsequent encounter; I10 Essential (primary) hypertension; I87.2 Venous insufficiency (chronic) (peripheral); Z98.62 Peripheral vascular angioplasty status | CPT/HCPCS: 99212; 99213 ==

== ENCOUNTER 2023-02-07 10:00 | Outpatient (REF) | payer MEDICARE, SELFPAY | END 2023-02-07 10:01 | disposition home or self-care (01) | LOC: LBN 10:00 | PROVIDERS: PCP Family Medicine; Visit Provider Surgery | DX: L97.918 Non-pressure chronic ulcer of unspecified part of right lower leg with other specified severity (principal); I83.018 Varicose veins of right lower extremity with ulcer other part of lower leg; I10 Essential (primary) hypertension | CPT/HCPCS: 87070; 87205 ==

== ENCOUNTER → 2023-02-14 08:03 | Outpatient (BNVA) | payer MEDICARE, SELFPAY | PROVIDERS: PCP Family Medicine; Referring Provider Family Medicine; Visit Provider Surgery | DX: Z51.89 Encounter for other specified aftercare (principal); S81.801D Unspecified open wound, right lower leg, subsequent encounter; W54.0XXD Bitten by dog, subsequent encounter | CPT/HCPCS: 99211 ==

== ENCOUNTER → 2023-02-21 08:15 | Outpatient (BNVA) | payer MEDICARE, SELFPAY | PROVIDERS: PCP Family Medicine; Referring Provider Family Medicine; Visit Provider Surgery | DX: S81.801D Unspecified open wound, right lower leg, subsequent encounter (principal); W54.0XXD Bitten by dog, subsequent encounter | CPT/HCPCS: 99212; 99213 ==

== ENCOUNTER 2023-02-28 08:46 | Outpatient (REF) | payer MEDICARE, SELFPAY | END 2023-02-28 08:47 | disposition home or self-care (01) | LOC: SUO 08:46 | PROVIDERS: PCP Family Medicine; Referring Provider Family Medicine; Visit Provider Surgery | DX: S61.451A Open bite of right hand, initial encounter (principal); M79.89 Other specified soft tissue disorders; M79.644 Pain in right finger(s); I70.213 Atherosclerosis of native arteries of extremities with intermittent claudication, bilateral legs; M10.9 Gout, unspecified; I65.29 Occlusion and stenosis of unspecified carotid artery; I87.2 Venous insufficiency (chronic) (peripheral); I10 Essential (primary) hypertension; Z87.891 Personal history of nicotine dependence; M16.0 Bilateral primary osteoarthritis of hip; M34.9 Systemic sclerosis, unspecified; R79.89 Other specified abnormal findings of blood chemistry; W54.0XXA Bitten by dog, initial encounter | CPT/HCPCS: 36415; 99212 ==

== ENCOUNTER 2023-02-28 12:36 | Outpatient (REF) | payer MEDICARE, SELFPAY ==
[2023-02-28 10:32] LABS: BUN 33 mg/dL (7-18); C-Reactive Protein 0.15 mg/dL (0.0-0.3); Estimated GFR 54.87 (mL/min/1.73m2)
[2023-02-28 10:35] LABS: Absolute Lymphocyte Count 2.11 10^3/uL (1.2-3.4); Absolute Monocyte Count 3.07 10^3/uL (0.1-0.8); Absolute Neutrophil Count 6.27 10^3/uL (1.2-6.7); Basophils % 0.8; Eosinophils % 0.5; HCT 40.2 % (36.0-46.0); HGB 13.1 g/dL (11.2-15.7); Immature Grans % 10.1; Lymphocytes % 16.3; MCH 30.2 pg (27.0-33.0); MCHC 32.6 % (32.0-36.0); MCV 93 fL (80-95); MPV 12.3 fL (8.0-11.0); Monocytes % 23.8; Neutrophils % 48.5; Platelet Count 135 10^3/uL (130-400); RBC 4.34 10^6/uL (3.93-5.22); RDW 15.8 % (11.7-14.6); RDW-SD 53.6 fL; WBC 12.92 10^3/uL (4.4-10.8)
[2023-02-28 10:41] LABS: Absolute Eosinophil Count 0.06 10^3/uL (0.0-0.7)
[2023-02-28 10:51] LABS: Diff Comment Diff Reviewed; RBC Morphology Normal
== END 2023-02-28 12:37 | disposition home or self-care (01) ==
LOC: LBN 12:36
PROVIDERS: Surgery; PCP Family Medicine; Visit Provider Family Medicine
DX: I10 Essential (primary) hypertension (principal); I70.201 Unspecified atherosclerosis of native arteries of extremities, right leg; M24.849 Other specific joint derangements of unspecified hand, not elsewhere classified; M25.441 Effusion, right hand; M79.644 Pain in right finger(s); S61.459A Open bite of unspecified hand, initial encounter; S81.801A Unspecified open wound, right lower leg, initial encounter; W54.0XXA Bitten by dog, initial encounter; Z87.891 Personal history of nicotine dependence; I27.20 Pulmonary hypertension, unspecified; I35.0 Nonrheumatic aortic (valve) stenosis; I65.29 Occlusion and stenosis of unspecified carotid artery; I70.203 Unspecified atherosclerosis of native arteries of extremities, bilateral legs; I83.009 Varicose veins of unspecified lower extremity with ulcer of unspecified site; I87.2 Venous insufficiency (chronic) (peripheral); L97.911 Non-pressure chronic ulcer of unspecified part of right lower leg limited to breakdown of skin; M10.9 Gout, unspecified; M16.0 Bilateral primary osteoarthritis of hip; M34.9 Systemic sclerosis, unspecified; Z86.69 Personal history of other diseases of the nervous system and sense organs; R79.89 Other specified abnormal findings of blood chemistry; C50.919 Malignant neoplasm of unspecified site of unspecified female breast
CPT/HCPCS: 84520; 82565; 85025; 86140

== ENCOUNTER 2023-03-02 01:10 | Outpatient (CLI) | payer MEDICARE, SELFPAY ==
--- NOTE | 2023-03-02 07:15 | DI.MRI_ITS ---
Exam(s) MR UPPER EXTREMITY RT WO/W EXAM: MR UPPER EXTREMITY RT WO/W CLINICAL HISTORY: dog bite in October/wound healed/swelling #2 fing TECHNIQUE: Multiplanar multisequence MRI was performed. Both pre and post contrast use sequences we re performed. Contrast injected was 19 mL Dotarem. COMPARISON: No exams were available for comparison FINDINGS: SOFT TISSUES: There is some generalized subcutaneous soft tissue edema in the 2nd-index finger. No f ormed abscess. LIGAMENTS: There are no collateral ligament tears evident in the 2nd-index finger. TENDONS: No evidence of significant tendon tear. No tenosynovitis. MARROW/ARTICULATIONS:There is no evidence of fracture, bone contusion, nor Significant joint effusion. No intraosseous signal abnormality nor intraosseous enhancement to suggest the presence of osteomyeli tis. IMPRESSION: 1. Generalized mild soft tissue edema in the 2nd-index finger but no discernible soft tissue abscess. No joint effusion. 2. No evidence of osteomyelitis. DATA REPOSITORY:
[2023-03-02] MEDS: Gadoterate meglumine 20 ML SYRINGE IVP (10:54)
[2023-03-02] MEDS: Normal Saline Flush 10 ML SYR IVP (10:55)
== END 2023-03-02 01:30 ==
PROVIDERS: PCP Family Medicine; Visit Provider Surgery
DX: M79.644 Pain in right finger(s) (principal); M25.541 Pain in joints of right hand; S61.451D Open bite of right hand, subsequent encounter; W54.0XXD Bitten by dog, subsequent encounter; M79.89 Other specified soft tissue disorders
CPT/HCPCS: 73220

== ENCOUNTER → 2023-03-07 08:16 | Outpatient (BNVA) | payer MEDICARE, SELFPAY | PROVIDERS: PCP Family Medicine; Referring Provider Family Medicine; Visit Provider Surgery | DX: Z51.89 Encounter for other specified aftercare (principal); S81.801D Unspecified open wound, right lower leg, subsequent encounter; S61.451D Open bite of right hand, subsequent encounter; W54.0XXD Bitten by dog, subsequent encounter | CPT/HCPCS: 99212; 99213 ==

== ENCOUNTER → 2023-03-21 08:16 | Outpatient (BNVA) | payer MEDICARE, SELFPAY | PROVIDERS: PCP Family Medicine; Referring Provider Family Medicine; Visit Provider Surgery | DX: Z51.89 Encounter for other specified aftercare (principal); S81.801D Unspecified open wound, right lower leg, subsequent encounter; X58.XXXD Exposure to other specified factors, subsequent encounter; M25.441 Effusion, right hand | CPT/HCPCS: 99212; 99214 ==

== ENCOUNTER → 2023-04-05 07:45 | Outpatient (BNVA) | payer MEDICARE, SELFPAY | PROVIDERS: PCP Family Medicine; Referring Provider Family Medicine; Visit Provider Surgery | DX: Z51.89 Encounter for other specified aftercare (principal); S81.801D Unspecified open wound, right lower leg, subsequent encounter; X58.XXXD Exposure to other specified factors, subsequent encounter | CPT/HCPCS: 99212; 99213 ==

== ENCOUNTER → 2023-04-21 07:47 | Outpatient (BNVA) | payer MEDICARE, SELFPAY | PROVIDERS: PCP Family Medicine; Referring Provider Family Medicine; Visit Provider Physical Therapy Assistant | DX: S81.801D Unspecified open wound, right lower leg, subsequent encounter (principal); X58.XXXD Exposure to other specified factors, subsequent encounter | CPT/HCPCS: 99213 ==

== ENCOUNTER → 2023-05-12 08:15 | Outpatient (BNVA) | payer MEDICARE, SELFPAY | PROVIDERS: PCP Family Medicine; Referring Provider Family Medicine; Visit Provider Surgery | DX: S81.801D Unspecified open wound, right lower leg, subsequent encounter (principal); X58.XXXD Exposure to other specified factors, subsequent encounter | CPT/HCPCS: 99213; 99214 ==

== ENCOUNTER 2023-05-17 12:04 | Day surgery (SDC) | payer MEDICARE, SELFPAY ==
--- NOTE | 2023-05-16 19:13 | W.PM.DSUDISC ---
Date of service: 05/17/23 Time of Service: 13:42 Discharge Plan Disposition Condition: Good Discharge Details Attending Provider: Rosi Jimenez Primary Care Provider: SANDRA WU [place] Meds and New Rx's Prescriptions: No Action rosuvastatin 10 mg tablet 10 mg PO DAILY Bio-K plus 50 billion cell capsule,delayed release(DR/EC) 1 cap PO DAILY Qty: 30 0RF Rx Instructions: Finish all ADEK Gummies Plus Zinc 2,400 mcg-18.75 [id number] tablet,chewable 2 tab PO DAILY cilostazol 100 mg tablet 100 mg PO BID Qty: 60 12RF Hold Instructions: Changed by Provider Rx Instructions: do not take ibuprofen while on this medication zinc acetate 50 mg (zinc) capsule 50 mg PO DAILY lorazepam [Ativan] 0.5 mg tablet 0.5 mg PO PREOP PRN (Reason: anxiety) Qty: 1 0RF Rx Instructions: take 60 mins prior to procedure Иван (with collagen) 7-7-1.5 gram powder in packet 1 packet PO BID Rx Instructions: mix 1 packet with 8-10 oz liquid multivitamin 1 EACH tablet 1 tab PO DIRECTED metoprolol tartrate 100 MG tablet 200 mg PO DIRECTED enalapril maleate 20 MG tablet 40 mg PO DIRECTED amlodipine 5 MG tablet 5 mg PO DAILY allopurinol 100 MG tablet 300 mg PO DAILY aspirin [Lo-Dose Aspirin] 81 MG tablet,delayed release (DR/EC) 81 mg PO DIRECTED ascorbic acid (vitamin C) [Vitamin C] 1,000 MG tablet 1,000 mg PO DAILY ibuprofen 200 MG tablet 600 mg PO Q8H PRN PRN acetaminophen [Tylenol Extra Strength] 500 mg Capsule 500 mg PO DIRECTED Discharge Instructions Additional Instructions: -change dressings in am 05/18 - remove mepilex and packing. 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 -apply clean mepilex -change mepilex daily -ice and tylenol for pain. Tylenol 1000mg po every 8hrs as needed for pain. -up WALKING 1 mile a day -F/u 11:00am 06/02. Activity:: Activity as Tolerated Remove Dressings/Wound Care:: 24 hours Shower/Bathe:: 24 hours Diet:: As Tolerated DS: Diagnosis Discharge Diagnosis (1) Venous insufficiency of both lower extremities: Status: Acute (2) Atherosclerosis of artery of both lower extremities: Status: Acute (3) Venous stasis ulcer limited to breakdown of skin with varicose veins: Status: Acute (4) PAD (peripheral artery disease): Status: Acute (5) HTN (hypertension): Status: Chronic (6) Femoral artery stenosis, right: Status: Acute (7) Non-healing wound of lower extremity: Status: Acute Asessment and Plan: The patient is doing well post-op from their [] surgery.? They are having no nausea or vomiting. They are tolerating liquids and a snack. The pt is not having any chest pain or SOB.? Their pain is adequately controlled. They have been able to urinate.? ?HEENT:? no eye pain/drainage/redness/swelling. Mild sore throat ?Cardio- NSR, no chest pain, BP stable- see VS record ?Pulm: no sob or productive cough. No hemoptysis ?Incision- dressing is c/d/i w/ no excessive bleeding or drainage ?I discussed with the patient the findings at the time of surgery and the patient?s progress. ?We reviewed expectations at home; what the patient could expect for recovery time, and in the post-operative period.? We discussed the importance of walking to avoid blood clots and pneumonia.? We discussed and reviewed the patient's post-operative wound care and dressing needs.?? We reviewed their step-ramirez pain management plan, Rx called to the pharmacy of their choice.? We reviewed activity and limitations-see discharge instructions. We reviewed warning signs, and when to seek medical attention- see d/c instructions.?? Patient was given a postoperative follow-up appointment. Patient verbalized understanding of their postoperative instructions, how do to take care of themselves and their incision, and the pain management plan. Please see discharge instructions.? (8) Aortic stenosis: (9) Internal carotid artery stenosis: (10) Internal carotid artery occlusion: (11) Non-healing wound of right lower extremity: (12) Pulmonary hypertension: (13) Scleroderma: (14) Osteoarthritis, hip, bilateral: Status: Acute (15) Limited mobility: Status: Acute (16) Hard of hearing: Status: Acute
--- NOTE | 2023-05-16 19:16 | W.PM.OP ---
Date of service: 05/17/23 Time of Service: 15:31 Operative Note Operative Note DATE OF PROCEDURE: 05/17/23 PRE-OP DIAGNOSIS: no healing wound RLE secondary to animal bite POST-OP DIAGNOSIS: same PROCEDURE: excision and debridement SURGEON: Rosi Jimenez ANESTHESIA TYPE: Local By Surgeon Refer to Anesthesia Record Procedure Description: Patient is here today for incision of Dermabond debridement of chronic wound of the right lower extremity. The wound is marked in preop. Informed consent is obtained explaining risks and benefits of procedure including not limited to: Bleeding, infection, pneumonia, blood clots clot, reaction to medication, and other on for told complications. Patient is brought to the operative room suite and placed supine position. She had preop Emla placed. She is prepped and draped in the usual sterile fashion using a Betadine scrub solution. Timeout is performed. Cultures are taken of the wound. The wound edges are excised and curetted to remove all nonviable tissue. Electrocautery was used to provide hemostasis. They are irrigated with a liter of saline. The more anterior wound is 1.5 cm x 1 cm x 0.5 cm. The more superior wound is 1 cm x 0.5 cm 5.5 cm. They are then packed with dry gauze and a sterile Mepilex dressing is applied. Patient tolerated the procedure well without complication. She will follow-up in the office in 2 weeks time. She will continue her regular wound care regimen at home
[2023-05-17] MEDS: Lidocaine/Prilocaine Cream 5 GM TUBE TP (12:20)
[2023-05-17] MEDS: LORazepam 1 MG TAB PO (12:20)
[2023-05-17 12:38] VITALS: BP 163/64; PULSE 82; RESP 17; TEMP 37; O2SAT 96
[2023-05-17 13:44] VITALS: BP 163/72; PULSE 80; RESP 17; TEMP 36.7; O2SAT 97
[2023-05-17] MEDS: Acetaminophen 500 MG TAB 1000 MG PO (13:59)
== END 2023-05-17 14:14 | disposition home or self-care (01) ==
PROVIDERS: PCP Family Medicine; Visit Provider Surgery
PROC: (CPT 97597; principal; 2023-05-17 11:15)
DX: I87.2 Venous insufficiency (chronic) (peripheral) (principal); I70.203 Unspecified atherosclerosis of native arteries of extremities, bilateral legs; S81.851S Open bite, right lower leg, sequela; V00-Y99 External causes of morbidity
CPT/HCPCS: 97597; 87077; 87070; 87075; 87186; 87205

== ENCOUNTER → 2023-06-02 10:44 | Outpatient (BNVA) | payer MEDICARE, SELFPAY | PROVIDERS: PCP Family Medicine; Referring Provider Family Medicine; Visit Provider Surgery | DX: Z48.817 Encounter for surgical aftercare following surgery on the skin and subcutaneous tissue (principal); I70.201 Unspecified atherosclerosis of native arteries of extremities, right leg ==

== ENCOUNTER → 2023-06-16 08:17 | Outpatient (BNVA) | payer MEDICARE, SELFPAY | PROVIDERS: PCP Family Medicine; Referring Provider Family Medicine; Visit Provider Surgery | DX: S81.801D Unspecified open wound, right lower leg, subsequent encounter (principal); X58.XXXD Exposure to other specified factors, subsequent encounter | CPT/HCPCS: 99211 ==

== ENCOUNTER → 2023-06-30 10:45 | Outpatient (BNVA) | payer MEDICARE, SELFPAY | PROVIDERS: PCP Family Medicine; Referring Provider Family Medicine; Visit Provider Surgery | DX: S81.801D Unspecified open wound, right lower leg, subsequent encounter (principal); X58.XXXD Exposure to other specified factors, subsequent encounter | CPT/HCPCS: 99211; 99212 ==

== ENCOUNTER → 2023-07-07 08:57 | Outpatient (BNVA) | payer MEDICARE, SELFPAY | PROVIDERS: PCP Family Medicine; Referring Provider Family Medicine; Visit Provider Surgery | DX: S81.801D Unspecified open wound, right lower leg, subsequent encounter (principal); X58.XXXD Exposure to other specified factors, subsequent encounter; I87.2 Venous insufficiency (chronic) (peripheral) | CPT/HCPCS: 11042; 99212 ==

== ENCOUNTER → 2023-07-21 08:16 | Outpatient (BNVA) | payer MEDICARE, SELFPAY | PROVIDERS: PCP Family Medicine; Referring Provider Family Medicine; Visit Provider Surgery | DX: S81.801D Unspecified open wound, right lower leg, subsequent encounter (principal); W54.0XXD Bitten by dog, subsequent encounter | CPT/HCPCS: 11042; 99212 ==

== ENCOUNTER 2023-07-21 09:50 | Outpatient (REF) | payer MEDICARE, SELFPAY | END 2023-07-21 09:51 | disposition home or self-care (01) | LOC: LBN 09:50 | PROVIDERS: PCP Family Medicine; Visit Provider Surgery | DX: I10 Essential (primary) hypertension (principal); I35.0 Nonrheumatic aortic (valve) stenosis; I70.201 Unspecified atherosclerosis of native arteries of extremities, right leg; I70.203 Unspecified atherosclerosis of native arteries of extremities, bilateral legs; I83.009 Varicose veins of unspecified lower extremity with ulcer of unspecified site; I87.2 Venous insufficiency (chronic) (peripheral); M16.0 Bilateral primary osteoarthritis of hip; S81.801A Unspecified open wound, right lower leg, initial encounter; T14.8XXA Other injury of unspecified body region, initial encounter; Z74.09 Other reduced mobility; Z86.69 Personal history of other diseases of the nervous system and sense organs | CPT/HCPCS: 87077; 87070; 87186; 87205 ==

== ENCOUNTER → 2023-07-26 08:02 | Outpatient (BNVA) | payer MEDICARE, SELFPAY | PROVIDERS: PCP Family Medicine; Referring Provider Family Medicine; Visit Provider Surgery | DX: S81.801D Unspecified open wound, right lower leg, subsequent encounter (principal); W54.0XXD Bitten by dog, subsequent encounter; B96.89 Other specified bacterial agents as the cause of diseases classified elsewhere | CPT/HCPCS: 99212 ==

== ENCOUNTER → 2023-07-29 07:28 | Outpatient (BNVA) | payer MEDICARE, SELFPAY | PROVIDERS: PCP Family Medicine; Referring Provider Family Medicine; Visit Provider Surgery | DX: S81.801D Unspecified open wound, right lower leg, subsequent encounter (principal); X58.XXXD Exposure to other specified factors, subsequent encounter | CPT/HCPCS: 99212 ==

== ENCOUNTER → 2023-08-05 12:46 | Outpatient (BNVA) | payer MEDICARE, SELFPAY | PROVIDERS: PCP Family Medicine; Referring Provider Family Medicine; Visit Provider Surgery | DX: S81.801D Unspecified open wound, right lower leg, subsequent encounter (principal); X58.XXXD Exposure to other specified factors, subsequent encounter | CPT/HCPCS: 99212; 99213 ==

== ENCOUNTER → 2023-08-19 07:45 | Outpatient (BNVA) | payer MEDICARE, SELFPAY | PROVIDERS: PCP Family Medicine; Referring Provider Family Medicine; Visit Provider Surgery | DX: S81.801D Unspecified open wound, right lower leg, subsequent encounter (principal); X58.XXXD Exposure to other specified factors, subsequent encounter | CPT/HCPCS: 99212; 99213 ==

== ENCOUNTER → 2023-08-26 09:44 | Outpatient (BNVA) | payer MEDICARE, SELFPAY | PROVIDERS: PCP Family Medicine; Referring Provider Family Medicine; Visit Provider Surgery | DX: S81.801D Unspecified open wound, right lower leg, subsequent encounter (principal); X58.XXXD Exposure to other specified factors, subsequent encounter | CPT/HCPCS: 99212 ==

== ENCOUNTER → 2023-09-08 08:15 | Outpatient (BNVA) | payer MEDICARE, SELFPAY | PROVIDERS: PCP Family Medicine; Referring Provider Family Medicine; Visit Provider Surgery | DX: S81.801D Unspecified open wound, right lower leg, subsequent encounter (principal); X58.XXXD Exposure to other specified factors, subsequent encounter | CPT/HCPCS: 11043 ==

== ENCOUNTER 2025-11-04 07:54 | Inpatient (IN) | payer MEDICARE, SELFPAY ==
[2025-11-04] VITALS (93 sets, daily range): BP systolic 101–196; BP diastolic 30–120; PULSE 62–87; RESP 14–30; TEMP 36.3–37.1; O2SAT 67–98
--- NOTE | 2025-11-04 | DI.CT_ITS ---
Exam(s) CT CHEST PE CTA EXAM: CT CHEST PE CTA CLINICAL HISTORY: abrupt worsening of SOB. TECHNIQUE: Imaging Protocol: Axial CT angiography was performed with multi- slice acquisition and multi-planar reconstructions as well as axial, coronal and sagittal MIP reconstructions. Computer aided detection (CAD) was utilized. CONTRAST MATERIAL: Intravenous: Omnipaque 350 Contrast volume:65 ml COMPARISON: CR XR PORTABLE CHEST AP from 11/04/2025 FINDINGS: Pulmonary Arteries: Well opacified with IV contrast. No evidence of filling defect to suggest pulmonary emboli. Mediastinum and Meme: Small mediastinal and hilar lymph nodes. Pulmonary parenchyma: Suboptimal evaluation due to respiratory motion and expiratory changes. Mild interlobular septal thickening. No consolidation or dominant measurable mass. Pleura: Trace left pleural effusion. Bibasilar atelectasis. No pneumothorax. Heart: The heart is moderately dilated, left atrium and left ventricle.. There is heavy mitral annular calcification. Moderate coronary artery calcifications are seen. Aorta: Thoracic aorta non-dilated. No dissection. Calcification at the arch. Upper abdomen: No acute findings. Bones: Unremarkable for age. Tubes, Catheters, and Lines: None Soft tissues: Unremarkable. IMPRESSION: No evidence of pulmonary embolism. Dilated left atrium and ventricle. Trace trace right pleural effusion. Mild bibasilar atelectasis. Mild interlobular septal thickening could indicate mild CHF. RADIATION DOSE DELIVERED: Total DLP DATA REPOSITORY: All CT scans at this facility are submitted to the National Radiology Data Registry (NRDR) Dose Index Registry (DIR) with the [employer] (A[employer]). RADIATION OPTIMIZATION: All CT scans at this facility use at least one of these dose optimization techniques: automated exposure control; mA and/or kV adjustment per patient size (includes targeted exams where dose is matched to clinical indication); or iterative reconstruction.
--- NOTE | 2025-11-04 07:45 | RT.EKG_ITS ---
APPROVED REPORT Exam: Resting ECG Reason for Exam: Shortness of Breathe Patient Location: E HR:78 bpm ECG Measurements Heart Rate 78 AXIS MT 182 P 0 QRSd 100 QRS -24 QT 430 T 76 QTc 488 Conclusion Sinus rhythm...normal P axis, V-rate 60- 99 Probable left atrial enlargement...P >50mS, <-0.10mV V1 Left ventricular hypertrophy...multiple LVH criteria No Occlusion ND
--- NOTE | 2025-11-04 08:00 | DI.RAD_ITS ---
Exam(s) XR PORTABLE CHEST AP EXAM: XR PORTABLE CHEST AP CLINICAL HISTORY: SOB TECHNIQUE: 2D digital imaging was performed. COMPARISON: CT CT ABD AORTA CTA W RUNOFF from 07/12/2022 FINDINGS: LUNGS: Increased interstitial markings. Minimal blunting at the right costophrenic angle. HEART: Mildly enlarged. Mild pulmonary vascular prominence. AORTA: Normal diameter. BONES: Unremarkable for age. Soft tissues: Unremarkable. IMPRESSION: Tiny right pleural effusion. Increased interstitial markings and pulmonary vascular prominence could indicate mild CHF. No focal consolidation. DATA REPOSITORY: RADIATION DOSE DELIVERED:
--- NOTE | 2025-11-04 08:17 | ED.GENADUL_ITS ---
Discharge Plan Disposition Patient Disposition: Admit to [facility] Condition: Poor Discharge Details Clinical Impression: Breath shortness, Aortic stenosis, Hypoxia Admit Date/Time: 11/04/25 13:25 Admit Provider: Antoni Jaramillo Attending Provider: Antoni Jaramillo Primary Care Provider: SANDRA WU ED Provider: Romelia Akbar General Date/Time Provider Initiated Documentation: 11/04/25 08:13 . Limitations to Documentation: no limitations . Information obtained by: patient, family and RN notes reviewed . History of Present Illness 89 year old F presents to the emergency department with the chief complaint of SOB, described as severe, Patient started experiencing this month(s) and it has been intermittent. Immobilization improves symptom(s), Movement worsens symptoms . Patient notes loss of appetite, malaise, shortness of breath and weakness (generalized associated with SOB and fatigue); denies chest pain, cough, fever/chills, nausea/vomiting and syncope. Patient did receive the following treatments prior to arrival, other (albuterol) Related Data Home Medications ?Medication ?Instructions ?Recorded ?Confirmed amlodipine 5 mg tablet 5 mg PO DAILY 10/03/1511/04 aspirin 81 mg tablet,delayed 81 mg PO DIRECTED 09/2111/04/25 release (Lo-Dose Aspirin) enalapril maleate 20 mg tablet 20 mg PO BID 10/03/1501/05/25 metoprolol tartrate 100 mg tablet 100 mg PO BID 11/04/25 multivitamin 1 tab PO DIRECTED 5 11/04/25 ascorbic acid (vitamin C) 1,000 mg 500 mg PO DAILY 08/0811/04/25 tablet (Vitamin C) rosuvastatin 10 mg tablet 10 mg PO DAILY 09/11/2110/21 albuterol sulfate 90 mcg/actuation 2 puff inhalation Q 4H PRN 11/04/25 11/04/25 aerosol inhaler (Ventolin HFA) allopurinol 300 mg tablet 300 mg PO DAILY 11/04/25 vit C 250 mg-vit E 90 mg-zinc 40 2 tab PO DAILY 11/04/25 mg-copper 1 [id number] capsule (PreserVision AREDS-2) Allergies Allergy/AdvReac Type Severity Reaction Status Date / Time amoxicillin (From Augmentin) Allergy Severe Diarrhea Verified 11/04/25 10:24 clavulanic acid (From Allergy Severe Diarrhea Verified 11/04/25 10:24 Augmentin) gabapentin AdvReac Severe feet swell Verified 11/04/25 10:24 adhesive tape AdvReac Intermediate skin Verified 11/04/25 10:24 itching duloxetine AdvReac Intermediate states Verified 11/04/25 10:24 keeps me awake all night General Stated Complaint: SOB ROMAN: 2 Review of Systems Constitutional Constitutional: Reports as per HPI, Denies chills, Reports daytime sleepiness, Reports fatigue, Denies fever(s), Denies headache(s), Reports lethargy, Reports malaise, Reports poor appetite, Denies stops breathing during sleep, Reports weakness (generalized) and Denies weight gain Eyes Eyes: Denies change in vision ENT Ears, Nose, Mouth, and Throat: Denies dizziness and Denies headache(s) Cardiovascular Cardiovascular: Reports as per HPI Respiratory Respiratory: Reports as per HPI, Denies chest congestion, Denies cough, Denies pain on inspiration, Denies pain with cough and Denies wheezing Gastrointestinal Gastrointestinal: Reports as per HPI, Denies abdominal pain, Denies diarrhea, Denies nausea and Denies vomiting Musculoskeletal Musculoskeletal: Reports as per HPI and Denies back pain Integumentary/Breasts Skin/Breast: Reports as per HPI and Denies rash Neurologic Neurologic: Reports as per HPI, Denies dizziness, Denies headache(s) and Reports weakness (generalized) Endocrine Endocrine: Reports fatigue Allergic/Immunologic Allergic/Immunologic: Denies wheezing Exam Const General: cooperative, not healthy appearing, no acute distress, well developed and ill appearing acutely (SOB) and chronically (fatigued) Nutritional Appearance: average body habitus and well nourished Orientation: alert, awake and oriented x3 HENMT Head: normal to inspection Chest Chest: normal inspection of the chest, normal palpation of entire chest wall and no crepitus Resp Effort & Inspection: normal respiratory effort, able to speak in complete sentences, no cough, no respiratory distress and tachypneic Auscultation: clear to auscultation bilaterally, crackles bilaterally at the base and no wheezes Cardio Rate: regular rate Rhythm: regular rhythm Heart Sounds: murmur systolic at the right sternal border GI Inspection: normal to inspection, no edema and non-distended Palpation: soft and nontender Skin General skin exam: other (wound RLE) Neuro General: patient alert, patient awake and patient oriented x3 Cognition: normal cognition Speech: speech normal Extrem General: normal to inspection, capillary refill normal, no pedal edema and no calf tenderness Course Vital Signs Vital signs: Vital Signs Pulse 80 11/04/25 08:05 Respiratory Rate 20 11/04/25 08:05 Blood Pressure 196/69 H 11/04/25 08:05 Pulse Oximetry 67 L 11/04/25 08:05 Pulse 80 11/04/25 08:05 Respiratory Rate 20 11/04/25 08:05 Blood Pressure 196/69 H 11/04/25 08:05 Blood Pressure Position Sitting 11/04/25 08:05 Pulse Oximetry 67 L 11/04/25 08:05 Oxygen Delivery Method Room Air 11/04/25 08:05 Oxygen Flow Rate 0 11/04/25 08:05 Pain Level 0 11/04/25 08:05 Medical Decision Making Patient is a pleasant 89-year-old female, past medical history of hypertension, hyperlipidemia, borderline type 2 diabetes, carotid stenosis, chronic wound to the right lower extremity, femoral artery stenosis, history of smoking, venous insufficiency, presented with chief complaint of shortness of breath. They report this been progressively worsening for the past several months. Per patient and her significant other, she has tried inhaler without any relief. Has not had formal PFT testing. States that is getting to the point where she is struggling to sleep or do much of any activity. Her reports that any type of activity greatly exacerbates her shortness of breath. She denies any chest pain associated with this. On exam, patient appears chronically fatigued and was initially noted to have an oxygen of 67%. This quickly came up with augmented O2 via facemask. She is speaking in complete sentences, slightly tachypneic but otherwise no accessory muscle use for breathing. She does have some crackles at bilateral bases but no wheezing is appreciated and patient is moving air well. She has a loud systolic murmur heard best over the right sternal border most consistent with aortic stenosis. Normal rate and rhythm. No pulsatile mass in the abdomen. No lower extremity edema. She does appear dry with very dry lips and mucous membranes. No calf tenderness but she does have a chronic wound on the right lower extremity. ECG was obtained showing no STEMI, reviewed by Dr. Kan. Systolic murmur noted on today's exam was previously noted by emergency clinician in 2018. She did have an aortic study in 2021 showing occlusion of the right anterior tibial artery distal to the trifurcation, extensive atherosclerosis with resulting stenosis most marked at the right common femoral artery with no aneurysms or significant occlusion of the aorta, no dissection at that point. Last echo was performed in 2021 showing mild concentric left ventricular hypertrophy with an EF of 60 to 65% with no segmental wall motion abnormalities. Normal RV. Slight dilation of the left atrium. Aortic valve is trileaflet and sclerotic with moderate aortic stenosis, this is consistent with what I am noting on physical exam today given systolic murmur heard best over the aortic outflow. Trace aortic regurg was also noted on the prior echo as well as moderate mitral annular calcification. Bedside ultrasound was performed by myself as well as Dr. Kan. We are able to note a hyperechoic area over the aortic valve most consistent with aortic stenosis that was previously noted as noted above as well as my concern on physical exam. Patient's EF is difficult to estimate based on limited exam and difficulty visualizing the mitral valve well. However, no significant wall motion abnormality was noted, no pericardial effusion. Will try to obtain a formal echo. Primary concern at this time is more for cardiac based source. While patient was short of breath, she did not have any wheezing and this is certainly be atypical for her to develop a reactive airway at this point. She has not had any fevers, chills, cough, sputum production so highly unlikely to be infectious etiology, particularly given the duration of her symptoms and progressive worsening of her symptoms. Primarily concern at this time for progressive aortic stenosis, ACS versus other. Will obtain bedside chest x-ray as well as echo. Will obtain baseline labs and continue to reevaluate. Patient's blood pressure is difficult with the automatic machine but manually is 140/70. With how dry the patient looks and her not being in acute distress, I am hesitant to diurese this patient. She did take her beta-mary this morning. Will obtain labs and consider adding diuretic. Chest x-ray reviewed by radiologist: IMPRESSION: Tiny right pleural effusion. Increased interstitial markings and pulmonary vascular prominence could indicate mild CHF. No focal consolidation. Labs reviewed. Patient does have a leukocytosis white count of 25, patient does chronically have an elevated white count but this is much more above her typical. Again, without her having any infectious symptoms, this could be stress response due to some of the cardiac underlying issues but will consider a dding on other labs or imaging based on continued evaluation. INR 1.2. CMP shows creatinine of 1.09 which is baseline for the patient. BNP of 10,000 with no prior for comparison. Initial troponin within normal limits. Patient was also reporting decreased appetite, weight loss, difficulty sleeping so TSH was also ordered which was found to be normal. With the patient's elevated BNP and shortness of breath, we will give a small amount of diuretic and continue to monitor. I remain concerned for aortic stenosis being the primary culprit of her symptoms. I did discuss admission with the patient and her and they are in agreement with this plan. After the formal echo has been completed, will send imaging to [facility] as patient is agreeable to considering a procedure such as a valve replacement if warranted. However, it does not there have been similar discussions in the past and the patient has been told she is not a surgical candidate. We also discussed end-of-life care in depth and will the patient is agreeable to procedures or medication management, she would like to be a DNR/DNI. was present at bedside and was agreeable partook in this discussion. Echo completed, tech notes severe , will calculate EF. Will consult with regarding the as this may be the leading cause of her symptoms at this time. Initial and deltra troponin WNL without Images sent to . Request consult with cardiology. Consult with Dr. Jameel Goode with cardiology at [facility]. She was still having difficulty reading the echo but were unclear if this is because the [facility] te am has not completed their formal read on this yet and she will read into this. Currently, patient is excepted under Dr. Hoffmann, structural store specialist for likely care of the patient's aortic stenosis. They are not able to take the patient until tomorrow so I did reach out to our hospitalist team here regarding admission. Hospitalist team here, Dr. Jaramillo, graciously admits patient for continued observation treatment until such time the patient can be evaluated for possible valve replacement based on recommendations of the cardiology team at [facility] as noted above. Patient remains in stable condition. Dictation completed using Dragon dictation software. Please excuse any errors or modeling agent anomalies that may remain. PFSH All Active Problems (Updated 11/04/25 @ 15:17 by TONIA Nichole) Hypoxia (Acute) Aortic stenosis (Chronic) Breath shortness (Acute) Chronic wound (Acute) Femoral artery stenosis, 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 no stent. ASA daily Locking finger joint (Acute) Swelling of finger joint of right hand (Acute) Pain in finger of right hand (Acute) Non-healing wound of lower extremity (Acute) HTN (hypertension) (Chronic) Hx of smoking (Acute) Elevated serum creatinine (Acute) Venous insufficiency of both lower extremities (Acute) Atherosclerosis of artery of both lower extremities (Acute) Venous stasis ulcer limited to breakdown of skin with varicose veins (Acute) PAD (peripheral artery disease) (Acute) Osteoarthritis, hip, bilateral (Acute) Limited mobility (Acute) Hard of hearing (Acute) Medical History Aortic stenosis Basal cell carcinoma (BCC) of back Basal cell carcinoma of skin of face Hood palsy Chronic back pain Dog bite, hand Gout History of vision disorder only peripheral vision in R eye 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 Internal carotid artery stenosis Left ICA stenosis Non-healing wound of right lower extremity secondary to dog bite in 2019 Pulmonary hypertension Scleroderma Type II diabetes mellitus Surgical History Cortical cataract of left eye History of excision of lesion (~04/2023) RLE-Dog bite wound re-excision History of local excision of skin lesion (~10/14/21) History of local excision of skin lesion (~01/19/22) [place], right side chin, right lower leg trauma from dog bite 02/04/2020 Posterior subcapsular age-related cataract of left eye S/P angioplasty right femoral vein. 75% stenosis [facility] 02/10 Social History Smoking/Tobacco Use Status: Former Tobacco Use Quit Date: 11/21/79 Smoking risk assessment performed?: Yes Alcohol Intake: current Alcohol Intake frequency: holidays/special occasions only Drug use: Never Substance use type: does not use Current gender identity: female Do you feel safe at home: Yes Do you feel safe in your relationship?: Yes
[2025-11-04 08:31] LABS: Abs Immature Grans 3.61 10^3/uL (0.0-0.06); HCT 35.8 % (36.0-46.0); HGB 11.3 g/dL (11.2-15.7); MCH 28.8 pg (27.0-33.0); MCHC 31.6 % (32.0-36.0); MCV 91 fL (80-95); MPV 12.4 fL (8.0-11.0); Platelet Count 144 10^3/uL (130-400); RBC 3.93 10^6/uL (3.93-5.22); RDW 17.3 % (11.7-14.6); RDW-SD 56.8 fL; WBC 24.78 10^3/uL (4.4-10.8)
[2025-11-04 08:45] LABS: INR 1.2 (0.9-1.1); PTT Activated 28.8 sec (20.6-30.2); Prothrombin Time 11.4 sec (9.1-11.1)
[2025-11-04 08:47] LABS: Magnesium 1.9 mg/dL (1.6-2.6)
[2025-11-04 08:48] LABS: ALT 11 U/L (10-49); AST 18 U/L (<34); Albumin 4.1 g/dL (3.2-5.0); Alkaline Phosphatase 64 U/L (46-116); Anion Gap 11.3 mmol/L (3-11); BUN 26 mg/dL (9-23); Bilirubin, Total 1.1 mg/dL (0.2-1.2); CO2 24.7 mmol/L (20.0-31.0); Calcium 9.6 mg/dL (8.3-10.6); Chloride 106 mmol/L (98-107); Glucose 125 mg/dL (74-106); Potassium 4.1 mmol/L (3.5-5.1); Sodium 142 mmol/L (136-145); Total Protein 6.9 g/dL (5.7-8.2); Troponin I 14 ng/L (<35)
[2025-11-04 08:49] LABS: Immature Grans % 0.0 %
[2025-11-04 08:51] LABS: Anisocytosis 2+; Hypochromasia 1+; Microcytosis 1+; Polychromasia Present; TSH (W/Ref FT4) 2.22 uIU/mL (0.55-4.78)
--- NOTE | 2025-11-04 08:55 | ED.PROG_ITS ---
Date of service: 11/04/25 Time of Service: 08:55 Medical Decision Making As well as patient on arrival with her advanced practice provider. Please see her separate note for details. Patient had a presentation concerning new onset heart failure. She developed parasternal long axis windows and it was hard to a ssess her EF. 3:20 PM Patient was ultimately accepted to [facility] [place]. She had a formal echocardiogram in the ED and was accepted by the hospitalist team. Discharge Plan Disposition Patient Disposition: Admit to [facility] Condition: Poor Discharge Details Clinical Impression: Breath shortness, Aortic stenosis, Hypoxia Admit Date/Time: 11/04/25 13:25 Admit Provider: Antoni Jaramillo Attending Provider: Antoni Jaramlilo Primary Care Provider: SANDRA WU ED Provider: Romelia Akbar POCUS Exam (ED) Limited Cardiac Exam DATE OF EXAM: 11/04/25 TIME OF EXAM: 08:55 PROVIDER THAT PERFORMED THE STUDY: Jose Kan IS THIS A REPEAT EXAM DURING THIS ENCOUNTER: no REASON FOR EXAM: Dyspnea VISUALIZED STRUCTURES: Four Chambers, Left ventricle and LVOT VIEW OBTAINED: Apical 4-Chamber, Parasternal long-axis and Subxiphoid PERTINENT FINDINGS/IMPRESSION: No pericardial effusion and No RV dilation DIFFERENTIAL DIAGNOSES: Aortic outflow track less than 4 cm, difficult to assess EF, RV less than LV, no significant pericardial effusion. Exam complete
[2025-11-04] MEDS: Furosemide 20 MG/2 ML VIAL IVP (10:00)
[2025-11-04 10:11] LABS: Troponin I 15 ng/L (<35)
[2025-11-04 11:39] LABS: Troponin I 14 ng/L (<35)
[2025-11-04 13:11] LABS: COVID-19 PCR Negative (Negative); RSV PCR Negative (Negative)
--- NOTE | 2025-11-04 13:32 | W.PM.HP.N ---
Date of service: 11/04/25 Time of Service: 13:00 Assessment and Plan Assessment and plan (1) Acute hypoxemic respiratory failure: Status: Acute Assessment and plan: Patient has significant hypoxemia without evidence of infection on imaging CTA for PE done after admission, no PE seen, no consolidation seen Echocardiogram not showing significant reduction in ventricular function, severe noted At this time she is requiring high flow oxygen PRN duonebs ICU stay (2) Symptomatic severe aortic stenosis with normal ejection fraction: Status: Acute Assessment and plan: Patient is accepted at [facility] for intervention She is DNR but would like procedure if it extends her life (3) Non-healing wound of lower extremity: Status: Acute Assessment and plan: Dog bite about 10 years ago Multiple surgeries, multiple infections Many years of care with Dr Jimenez (4) Peripheral vascular disease: Status: Chronic Assessment and plan: Previously on cilostazol, no longer on treatment Vascular surgery had planned stenting at some point, years ago Contributing factor in non-healing wound (5) Benign essential hypertension: Status: Chronic Assessment and plan: Continue home amlodipine, enalapril, metoprolol History of Present Illness History of Present Illness Chief Complaint: shortness of breath Narrative: Neris Avila is an 89 year old woman presenting November 04 with shortness of breath worsening for several months. Patient reports she has been using her regular inhaler but it hasn't been helping. Normally she feels better after sitting down, but not today. She also reports fatigue and loss of appetite for 1-2 weeks. She is also concerned about a wound on her right lower leg, a 10 year old dog bite that has not healed despite years of interventions; she stopped seeking help for it 2 years ago due to being overwhelmed with all the doctors appointments. She is aware that she has had a noisy valve but does not recall seeing a fried cake maker. No chest pain, no abdominal pain, no N/V/D. Patient is DNR/DNI. She is very clear that she does not want to be resuscitated if her heart stops or if she requires invasive ventilation. She wants to in her sleep. In the ED, SpO2 67% on room air. She was started on NRB with good response, SpO2 95%. BP 196/69, vitals otherwise unremarkable. EKG without evidence of occlusion. CXR suggestive of CHF. Leukocytosis 24.78. Elevated INR 1.2. Mildly elevated creatinine 1.09. BNP 73067. Echocardiogram done, initial concern for severe . She was given furosemide. Case was discussed with [facility] cardiology, and she is accepted to their care by Dr Hoffmann, likely for tomorrow. 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 Peripheral vascular disease. Aortic stenosis. HTN, Hard of hearing. 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 no stent. ASA daily Locking finger joint (Acute) Swelling of finger joint of right hand (Acute) Pain in finger of right hand (Acute) Non-healing wound of lower extremity (Acute) HTN (hypertension) (Chronic) Hx of smoking (Acute) Elevated serum creatinine (Acute) Venous insufficiency of both lower extremities (Acute) Atherosclerosis of artery of both lower extremities (Acute) Venous stasis ulcer limited to breakdown of skin with varicose veins (Acute) PAD (peripheral artery disease) (Acute) Osteoarthritis, hip, bilateral (Acute) Limited mobility (Acute) Hard of hearing (Acute) Medical History Aortic stenosis Basal cell carcinoma (BCC) of back Basal cell carcinoma of skin of face Hood palsy Chronic back pain Dog bite, hand Gout History of vision disorder only peripheral vision in R eye 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 Internal carotid artery stenosis Left ICA stenosis Non-healing wound of right lower extremity secondary to dog bite in 2019 Pulmonary hypertension Scleroderma Type II diabetes mellitus Surgical History Cortical cataract of left eye History of excision of lesion (~04/2023) RLE-Dog bite wound re-excision History of local excision of skin lesion (~10/14/21) History of local excision of skin lesion (~01/19/22) Stoiber, right side chin, right lower leg trauma from dog bite 02/04/2020 Posterior subcapsular age-related cataract of left eye S/P angioplasty right femoral vein. 75% stenosis [facility] 02/10 Social History Smoking/Tobacco Use Status: Former Tobacco Use Quit Date: 11/21/79 Smoking risk assessment performed?: Yes Alcohol Intake: current Alcohol Intake frequency: holidays/special occasions only Drug use: Never Substance use type: does not use Housing: house Current gender identity: female Do you feel safe at home: Yes Do you feel safe in your relationship?: Yes Meds Allergies and Home Medications Allergies Allergy/AdvReac Type Severity Reaction Status Date / Time amoxicillin (From Augmentin) Allergy Severe Diarrhea Verified 11/04/25 10:24 clavulanic acid (From Allergy Severe Diarrhea Verified 11/04/25 10:24 Augmentin) gabapentin AdvReac Severe feet swell Verified 11/04/25 10:24 adhesive tape AdvReac Intermediate skin Verified 11/04/25 10:24 itching duloxetine AdvReac Intermediate states Verified 11/04/25 10:24 keeps me awake all night Home Medications ?Medication ?Instructions ?Recorded ?Confirmed ?Type amlodipine 5 mg tablet 5 mg PO DAILY 10/03/15 11/04/25 History aspirin 81 mg tablet,delayed 81 mg PO DIRECTED 10/03/15 11/04/25 History release (Lo-Dose Aspirin) enalapril maleate 20 mg tablet 20 mg PO BID 10/03/15 11/04/25 History metoprolol tartrate 100 mg tablet 100 mg PO BID 10/03/15 11/04/25 History multivitamin 1 tab PO DIRECTED 10/03/15 11/04/25 History ascorbic acid (vitamin C) 1,000 mg 500 mg PO DAILY 04/29/18 11/04/25 History tablet (Vitamin C) rosuvastatin 10 mg tablet 10 mg PO DAILY 09/11/21 11/04/25 History albuterol sulfate 90 mcg/actuation 2 puff inhalation Q4H PRN 11/04/25 11/04/25 History aerosol inhaler (Ventolin HFA) allopurinol 300 mg tablet 300 mg PO DAILY 11/04/25 11/04/25 History vit C 250 mg-vit E 90 mg-zinc 40 2 tab PO DAILY 11/04/25 11/04/25 History mg-copper 1 [id number] capsule (PreserVision AREDS-2) Exam Narrative Exam Narrative: General: This is a pleasant, elderly woman on high flow oxygen HEENT: Normocephalic, atraumatic. Hard of hearing. CV: RRR Resp: clear breath sounds bilaterally Abd: soft, NTND MSK: voluntary motion x4 Neuro: awake, alert, no focal deficits Results Labs 11/04/25 08:21 11/04/25 08:21 Labs: Laboratory Results - last 24 hr 11/04/25 11/04/25 11/04/25 08:21 09:41 11:10 WBC 24.78 H RBC 3.93 Hgb 11.3 Hct 35.8 L MCV 91 MCH 28.8 MCHC 31.6 L RDW 17.3 H Plt Count 144 MPV 12.4 H Immature Gran % 0.0 Neutrophils % 60.0 Band Neutrophils % 6 Lymphocytes % 16.0 Monocytes % 8.0 Eosinophils % 0.0 Basophils % 0.0 Metamyelocytes % 6 Myelocytes % 4 Nucleated RBC % 2.0 H Absolute Neutrophils 16.35 H Absolute Lymphocytes 3.96 H Absolute Monocytes 1.98 H Absolute Eosinophils 0.00 Absolute Basophils 0.00 RBC Morphology See Below Polychromasia Present Hypochromasia 1+ Anisocytosis 2+ Microcytosis 1+ PT 11.4 H INR 1.2 H APTT 28.8 VBG Lactate 1.0 Sodium 142 Potassium 4.1 Chloride 106 Carbon Dioxide 24.7 Anion Gap 11.3 H BUN 26 H Creatinine 1.09 H Est GFR (CKD-EPI 2020) 47.26 Glucose 125 H Calcium 9.6 Magnesium 1.9 Total Bilirubin 1.1 AST 18 ALT 11 Alkaline Phosphatase 64 Troponin I 14 15 NT-Pro-B Natriuret Pep 31051 H Total Protein 6.9 Albumin 4.1 TSH 2.22 COVID-19 Source Nasopharynx SARS-CoV-2 (PCR) Negative Influenza Type A (PCR) Negative Influenza Type B (PCR) Negative RSV (PCR) Negative 11/04/25 11:15 WBC RBC Hgb Hct MCV MCH MCHC RDW Plt Count MPV Immature Gran % Neutrophils % Band Neutrophils % Lymphocytes % Monocytes % Eosinophils % Basophils % Metamyelocytes % Myelocytes % Nucleated RBC % Absolute Neutrophils Absolute Lymphocytes Absolute Monocytes Absolute Eosinophils Absolute Basophils RBC Morphology Polychromasia Hypochromasia Anisocytosis Microcytosis PT INR APTT VBG Lactate Sodium Potassium Chloride Carbon Dioxide Anion Gap BUN Creatinine Est GFR (CKD-EPI 2020) Glucose Calcium Magnesium Total Bilirubin AST ALT Alkaline Phosphatase Troponin I 14 NT-Pro-B Natriuret Pep Total Protein Albumin TSH COVID-19 Source SARS-CoV-2 (PCR) Influenza Type A (PCR) Influenza Type B (PCR) RSV (PCR) Last Vital Signs Temp 36.9 C 11/04/25 08:30 Pulse 73 11/04/25 09:40 Resp 21 11/04/25 09:40 BP 157/55 H 11/04/25 09:32 Pulse Ox 93 11/04/25 09:46 VTE Prohylaxis Risk Level: Moderate/High Risk Contraindications: Other (expecting procedure within 24 hours) Prophylaxis: Mechanical Time Spent Time spent with Patient: 55-74 minutes Time was spent: preparing to see the patient(eg.review tests), obtaining and/or reviewing separately otained hiistory, ordering medications,tests, procedures, referring, communicating with other health care director, indepentently interpreting results, counseling the patient and care coordination
--- NOTE | 2025-11-04 15:07 | PHA.REVIEW2 ---
Pharmacy Admission Review Admission Clinical Review Admission Pharmacy Review: amoxicillin (From Augmentin) Allergy (Severe, Verified 11/04/25 10:24) Diarrhea clavulanic acid (From Augmentin) Allergy (Severe, Verified 11/04/25 10:24) Diarrhea gabapentin Adverse Reaction (Severe, Verified 11/04/25 10:24) feet swell adhesive tape Adverse Reaction (Intermediate, Verified 11/04/25 10:24) skin itching duloxetine Adverse Reaction (Intermediate, Verified 11/04/25 10:24) states keeps me awake all night Resuscitation Status Full Code Height 5 ft Weight 63.6 kg Pharmacy Admission Review Renal Dosing Renal Dosing: BUN 26 mg/dL (9-23) H 11/04/25 08:21 Creatinine 1.09 mg/dL (0.55-1.02) H 11/04/25 08:21 Medications needing adjustments: Reviewed (CrCl 28.9 mL/min) List of meds needing interventions: Current medications are okay Anticoagulation Anticoagulation: Hgb 11.3 g/dL (11.2-15.7) 11/04/25 08:21 Hct 35.8 % (36.0-46.0) L 11/04/25 08:21 Plt Count 144 10^3/uL (130-400) 11/04/25 08:21 INR 1.2 (0.9-1.1) H 11/04/25 08:21 Creatinine 1.09 mg/dL (0.55-1.02) H 11/04/25 08:21 DVT Prophylaxis: Reviewed (SCDs) Relevant Labs Relevant Labs: Sodium 142 mmol/L (136-145) 11/04/25 08:21 Potassium 4.1 mmol/L (3.5-5.1) 11/04/25 08:21 Chloride 106 mmol/L (98-107) 11/04/25 08:21 Magnesium 1.9 mg/dL (1.6-2.6) 11/04/25 08:21 Electrolytes, C-Reactive P, ESR: Reviewed (WBC 24.78) Cardiac Review Cardiac Review: Troponin I 14 ng/L (<35) 11/04/25 11:15 NT-Pro-B Natriuret Pep 62149 pg/mL (<300) H 11/04/25 08:21 Blood Pressure 142/62 1346 Blood Pressure 101/57 1331 Blood Pressure 134/51 1316 Blood Pressure 119/30 1301 Blood Pressure 131/39 1246 Blood Pressure 131/74 1231 Blood Pressure 153/51 1216 Blood Pressure 150/48 1201 Blood Pressure 146/49 1145 Blood Pressure 136/45 1131 Blood Pressure 148/53 1116 Blood Pressure 155/61 1101 BP, HR, EF%: Reviewed (HR WNL, oxygen flow rate = 15) List meds needing interventions: Has orders for amlodipine 5mg daily, enalapril 20mg BID and metoprolol 100mg BID QTc Review QTc: Reviewed (488 from 11/04/25) IV to PO Switch IV Medications: Reviewed Home Meds Home Med List reviewed: Reviewed Relevent Home Meds Not ordered & why?: albuterol HFA inhaler (PRN), ascorbic acid, multivitamin and Preservision Current Meds Current Medication Order Review: Reviewed
--- NOTE | 2025-11-04 15:34 | W.PC.ACHO ---
Registration Status: ADM NICK Primary Language: Preferred Language: Hungarian ED Information & Data Chief Complaint SOB 11/04/25 08:30 Chief Complaint SOB 11/04/25 08:21 Triage Note Pt arrives to ED c/o SOB x 11/04/25 08:05 several months - worsening. Pt has been using her inhaler but states sx are still worsening. 67% on RA upon arrival to ED - pt placed on NRB w/ sats improving to 95% Medical / Surgical History (Last Reviewed 08/26/23 @ 10:06 by Karolyn Santamaria MD) Dog bite, hand Type II diabetes mellitus History of vision disorder Basal cell carcinoma of skin of face Chronic back pain Scleroderma Gout Internal carotid artery stenosis Internal carotid artery occlusion Pulmonary hypertension Aortic stenosis Basal cell carcinoma (BCC) of back Non-healing wound of right lower extremity Hood palsy (Last Reviewed 08/26/23 @ 10:06 by Karolyn Santamaria MD) History of excision of lesion (~04/2023) S/P angioplasty Posterior subcapsular age-related cataract of left eye Cortical cataract of left eye History of local excision of skin lesion (~01/19/22) History of local excision of skin lesion (~10/14/21) Most Recent Vital Signs Temperature 36.3 C L 11/04/25 14:54 Temperature Source Temporal Artery Scan 11/04/25 14:54 Pulse 71 11/04/25 13:46 Pulse 75 11/04/25 13:46 Respiratory Rate 21 11/04/25 14:54 Respiratory Effort Non-Labored 11/04/25 14:54 Respiratory Depth Normal 11/04/25 14:54 Respiratory Pattern Normal 11/04/25 14:54 Blood Pressure 137/64 11/04/25 14:54 Blood Pressure Mean 88 11/04/25 14:54 Blood Pressure Position Supine 11/04/25 14:54 Pulse Oximetry 90 L 11/04/25 14:54 Oxygen Delivery Method High Flow System 11/04/25 14:54 Oxygen Flow Rate 50 11/04/25 14:54 Fraction of Inspired Oxygen (FIO2) 70 11/04/25 14:54 Pain Level 0 11/04/25 14:54 Allergies amoxicillin (From Augmentin) Allergy (Severe, Verified 11/04/25 10:24) Diarrhea vomiting, fatigue clavulanic acid (From Augmentin) Allergy (Severe, Verified 11/04/25 10:24) Diarrhea vomiting, fatigue gabapentin Adverse Reaction (Severe, Verified 11/04/25 10:24) feet swell adhesive tape Adverse Reaction (Intermediate, Verified 11/04/25 10:24) skin itching duloxetine Adverse Reaction (Intermediate, Verified 11/04/25 10:24) states keeps me awake all night Precautions Isolation Fall precaution 11/04/25 08:30 IV IV Catheter Type [Right Diffusix Antecubital] IV Catheter Gauge [Right 20 Antecubital] Diet Orders Category Date Time Status Heart Healthy Eating [DIET] Nutrition 11/04/25 Dinner Active Nothing Per Oral [DIET] Nutrition 11/05/25 01:00 Ordered Diagnostics 11/04/25 11/04/25 11/04/25 Range/Units 11:15 11:10 09:41 WBC (4.4-10.8) 10^3/uL RBC (3.93-5.22) 10^6/uL Hgb (11.2-15.7) g/dL Hct (36.0-46.0) % MCV (80-95) fL MCH (27.0-33.0) pg MCHC (32.0-36.0) % RDW (11.7-14.6) % Plt Count (130-400) 10^3/uL MPV (8.0-11.0) fL Immature Gran % % Neutrophils % % Band Neutrophils % % Lymphocytes % % Monocytes % % Eosinophils % % Basophils % % Metamyelocytes % Myelocytes % Nucleated RBC % (0.0-0.3) % Absolute Neutrophils (1.2-6.7) 10^3/uL Absolute Lymphocytes (1.2-3.4) 10^3/uL Absolute Monocytes (0.1-0.8) 10^3/uL Absolute Eosinophils (0.0-0.7) 10^3/uL Absolute Basophils (0.0-0.2) 10^3/uL RBC Morphology Polychromasia Hypochromasia Anisocytosis Microcytosis PT (9.1-11.1) sec INR (0.9-1.1) APTT (20.6-30.2) sec VBG Lactate 1.0 (<or=2.0) mmol/L Sodium (136-145) mmol/L Potassium (3.5-5.1) mmol/L Chloride (98-107) mmol/L Carbon Dioxide (20.0-31.0) mmol/L Anion Gap (3-11) mmol/L BUN (9-23) mg/dL Creatinine (0.55-1.02) mg/dL Est GFR (CKD-EPI 2020) (mL/min/1.73m2) Glucose (74-106) mg/dL Calcium (8.3-10.6) mg/dL Magnesium (1.6-2.6) mg/dL Total Bilirubin (0.2-1.2) mg/dL AST (<34) U/L ALT (10-49) U/L Alkaline Phosphatase (46-116) U/L Troponin I 14 15 (<35) ng/L NT-Pro-B Natriuret Pep (<300) pg/mL Total Protein (5.7-8.2) g/dL Albumin (3.2-5.0) g/dL TSH (0.55-4.78) uIU/mL COVID-19 Source Nasopharynx SARS-CoV-2 (PCR) Negative (Negative) Influenza Type A (PCR) Negative (Negative) Influenza Type B (PCR) Negative (Negative) RSV (PCR) Negative (Negative) 11/04/25 Range/Units 08:21 WBC 24.78 H (4.4-10.8) 10^3/uL RBC 3.93 (3.93-5.22) 10^6/uL Hgb 11.3 (11.2-15.7) g/dL Hct 35.8 L (36.0-46.0) % MCV 91 (80-95) fL MCH 28.8 (27.0-33.0) pg MCHC 31.6 L (32.0-36.0) % RDW 17.3 H (11.7-14.6) % Plt Count 144 (130-400) 10^3/uL MPV 12.4 H (8.0-11.0) fL Immature Gran % 0.0 % Neutrophils % 60.0 % Band Neutrophils % 6 % Lymphocytes % 16.0 % Monocytes % 8.0 % Eosinophils % 0.0 % Basophils % 0.0 % Metamyelocytes % 6 Myelocytes % 4 Nucleated RBC % 2.0 H (0.0-0.3) % Absolute Neutrophils 16.35 H (1.2-6.7) 10^3/uL Absolute Lymphocytes 3.96 H (1.2-3.4) 10^3/uL Absolute Monocytes 1.98 H (0.1-0.8) 10^3/uL Absolute Eosinophils 0.00 (0.0-0.7) 10^3/uL Absolute Basophils 0.00 (0.0-0.2) 10^3/uL RBC Morphology See Below Polychromasia Present Hypochromasia 1+ Anisocytosis 2+ Microcytosis 1+ PT 11.4 H (9.1-11.1) sec INR 1.2 H (0.9-1.1) APTT 28.8 (20.6-30.2) sec VBG Lactate (<or=2.0) mmol/L Sodium 142 (136-145) mmol/L Potassium 4.1 (3.5-5.1) mmol/L Chloride 106 (98-107) mmol/L Carbon Dioxide 24.7 (20.0-31.0) mmol/L Anion Gap 11.3 H (3-11) mmol/L BUN 26 H (9-23) mg/dL Creatinine 1.09 H (0.55-1.02) mg/dL Est GFR (CKD-EPI 2020) 47.26 (mL/min/1.73m2) Glucose 125 H (74-106) mg/dL Calcium 9.6 (8.3-10.6) mg/dL Magnesium 1.9 (1.6-2.6) mg/dL Total Bilirubin 1.1 (0.2-1.2) mg/dL AST 18 (<34) U/L ALT 11 (10-49) U/L Alkaline Phosphatase 64 (46-116) U/L Troponin I 14 (<35) ng/L NT-Pro-B Natriuret Pep 73671 H (<300) pg/mL Total Protein 6.9 (5.7-8.2) g/dL Albumin 4.1 (3.2-5.0) g/dL TSH 2.22 (0.55-4.78) uIU/mL COVID-19 Source SARS-CoV-2 (PCR) (Negative) Influenza Type A (PCR) (Negative) Influenza Type B (PCR) (Negative) RSV (PCR) (Negative) Intake and Output - 24 Hour Total 11/04/25 07:54 thru 11/04/25 14:54 Intake Total 10 Output Total 2400 Balance -2390 Weight 63.6 kg Intake: IV 10 Output: Urine 2400 Other: Urine Color Yellow Urine Appearance Clear Urine Odor None Comment Indwelling Gutiérrez catheter, placed in the ED today. Urinary Catheter Urinary Catheter Date of 11/04/25 Insertion [Urethral (Gutiérrez)] Time of insertion [Urethral ( 11:05 Gutiérrez)] Falls Risk Assessment History of Falls Previous History 11/04/25 14:54 Contributing Factors Impairments,Medications 11/04/25 14:54 Ambulatory Aids Uses ambulatory device + 11/04/25 14:54 Tubes/Lines With any additional score 11/04/25 14:54 Gait Evaluation W/any additional score 11/04/25 14:54 Cognition No cognitive impairment 11/04/25 08:35 Fall Total Score 91 11/04/25 14:54 Level of Risk Maximum Risk 11/04/25 14:54 Problems (Last Reviewed 08/26/23 @ 10:06 by Karolyn Santamaria MD) Hypoxia (Acute) Aortic stenosis (Chronic) Breath shortness (Acute) Attestation Statement: By documenting the first initial, last name, and credentials of the reporting nurse below, both parties acknowledge that all relevant information regarding the patient handoff has been communicated, and that all questions have been addressed to ensure continuity and safety of care. Additional Patient Information/Comments: Report Received From: Paige Chu RN
[2025-11-04] MEDS: Normal Saline Flush 10 ML SYR IVP ×2 (17:24→19:40)
[2025-11-04] MEDS: Normal Saline - Diluent 50 ML VIAL IJ (17:25)
[2025-11-04] MEDS: Omnipaque 350 MG/ML 100 ML BTL IJ (17:25)
[2025-11-04 18:16] LABS: BE (Venous) 1 mmol/L (-2-3); HCO3 (Venous) 27 mmol/L (23-28); O2 Sat (Venous) 79 %; TCO2 (Venous) 25 mmol/L (24-29); pCO2 (Venous) 47 mmHg (41-51); pO2 (Venous) 44 mmHg
[2025-11-04] MEDS: Metoprolol 50 MG TAB 100 MG PO (19:40)
[2025-11-04] MEDS: Enalapril 5 MG TAB 20 MG PO (19:40)
[2025-11-05] VITALS (28 sets, daily range): BP systolic 90–148; BP diastolic 39–113; PULSE 58–100; RESP 14–26; TEMP 36.4–36.7; O2SAT 83–100
[2025-11-05 06:30] LABS: Magnesium 1.8 mg/dL (1.6-2.6)
[2025-11-05 06:32] LABS: ALT 12 U/L (10-49); AST 19 U/L (<34); Albumin 3.7 g/dL (3.2-5.0); Alkaline Phosphatase 59 U/L (46-116); Anion Gap 10.7 mmol/L (3-11); BUN 22 mg/dL (9-23); Bilirubin, Total 0.9 mg/dL (0.2-1.2); CO2 27.3 mmol/L (20.0-31.0); Calcium 9.3 mg/dL (8.3-10.6); Chloride 106 mmol/L (98-107); Glucose 101 mg/dL (74-106); Potassium 3.8 mmol/L (3.5-5.1); Sodium 144 mmol/L (136-145); Total Protein 6.3 g/dL (5.7-8.2)
[2025-11-05 07:04] LABS: HCT 36.8 % (36.0-46.0); HGB 11.6 g/dL (11.2-15.7); MCH 29.0 pg (27.0-33.0); MCHC 31.5 % (32.0-36.0); MCV 92 fL (80-95); MPV 13.0 fL (8.0-11.0); Platelet Count 133 10^3/uL (130-400); RBC 4.00 10^6/uL (3.93-5.22); RDW 17.2 % (11.7-14.6); RDW-SD 56.3 fL; WBC 22.05 10^3/uL (4.4-10.8)
[2025-11-05 07:20] LABS: Abs Immature Grans 0.00 10^3/uL (0.0-0.06); Immature Grans % 0.0 %; RBC Morphology Normal
[2025-11-05] MEDS: Enalapril 5 MG TAB 20 MG PO ×2 (08:35→20:27)
[2025-11-05] MEDS: Aspirin E.C. 81 MG TABEC PO (08:35)
[2025-11-05] MEDS: Normal Saline Flush 10 ML SYR IVP ×3 (08:35→23:31)
[2025-11-05] MEDS: amLODIPine 5 MG TAB PO (08:35)
[2025-11-05] MEDS: Allopurinol 300 MG TAB PO (08:35)
[2025-11-05] MEDS: Rosuvastatin 10 MG TAB PO (08:35)
[2025-11-05] MEDS: Metoprolol 50 MG TAB 100 MG PO ×2 (08:35→20:27)
--- NOTE | 2025-11-05 09:39 | PDOC.CMIN ---
Date of service: 11/05/25 Time of Service: 09:41 Care Management Initial Assmt Initial Assessment Reason for Hospitalization: acute hypoxic respiratory failure Functional Status/Living Situation Patient Presentation: Neris presented to the ED yesterday morning with c/o severe SOB, that increases with any exertion. This has been worsening for months. Workup showed her symptoms to be more cardiac related, and she is believed to have aortic stenosis Neris is accepted for transfer at [facility] for continued work up and treatment. Neris was up in the bedside chair, visiting with her and son, when CM met with her today. She was wearing nc O2. She stated that she was feeling OK. She is being transferred to [facility] when a bed is available for her. Neris and her , Simone, live alone in their house in [place]. Simone still drives, and they are well supported by their sons, Jose and Ze. Town of Residence: [place] Resides with: Spouse (Ze) Significant Other/Family: Local (sons and their families) Natural Supports: family Employment Status: Retired Instrumental Activities of Daily Living (ADLs): Independent Medications Medication Management: No Issues/Barriers identified Advance Directives Advance Directives: Do you have an Advance Directive: N 07/29/23, 08:05 AD On File at [facility]: N 07/29/23, 08:05 Date Asked 11/04/25 11/04/25, 07:55 AD Date Reviewed COLST On File at [facility] COLST Date Scanned Code Status Resuscitation Status DNR/DNI Insurance Coverage/Financial Issues Insurance: Medicare Part A & B [employer] MCR Supplement? Care Team Visit Care Team Role Provider Type SANDRA TUCKER MD Primary Care Provider NON-[facility] STAFF PHYSICIAN TONIA Nichole Emergency Provider [employer] ANALYST Antoni Jaramillo MD Admit Provider [facility] STAFF PHYSICIAN Attending Provider Discharge Potential Discharge Needs: Other (transfer to [facility] cardiology) Anticipated Barriers to Discharge: Bed availability Transportation: EMS Plan: Neris is accepted for transfer at [facility] pending bed availability. She will transport via EMS. Cm will continue to follow. Social Determinants of Health Screening Social Determinants of health last assessed in clinic: 11/05/25 Will the Patient Participate in the Screening?: Yes Do you worry about having a steady place to live?: no Problems where you live: no known problems In the past 12 months, have you had to go without electric, gas, oil or water in your home?: no 1. Within the past 12 months, we worried whether our food would run out before we got money to buy more.: Don't know/refused 2. Within the past 12 months, the food we bought just didn't last and we didn't have money to get more.: Don't know/refused Has lack of transportation kept you from medical appointments or from doing things needed for daily living?: no Has anyone in your life made you feel unsafe or unsupported?: no How hard is it for you to pay for the very basics like food, housing, medical care, and heating? Would you say it is:: Not hard at all Do you want help finding or keeping work or a job?: I do not need or want help If for any reason you need help with day-to-day activities such as bathing, preparing meals, shopping, managing finances, etc., do you get the help you need?: I don?t need any help How often do you feel lonely or isolated from those around you?: Never Do you speak a language other than [place] at home?: No PFSH All Active Problems (Updated 11/04/25 @ 18:06 by Antoni Jaramillo MD) Benign essential hypertension (Chronic) Peripheral vascular disease (Chronic) Acute hypoxemic respiratory failure (Acute) Symptomatic severe aortic stenosis with normal ejection fraction (Acute) Hypoxia (Acute) Aortic stenosis (Chronic) Breath shortness (Acute) Chronic wound (Acute) Femoral artery stenosis, 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 no stent. ASA daily Locking finger joint (Acute) Swelling of finger joint of right hand (Acute) Pain in finger of right hand (Acute) Non-healing wound of lower extremity (Acute) HTN (hypertension) (Chronic) Hx of smoking (Acute) Elevated serum creatinine (Acute) Venous insufficiency of both lower extremities (Acute) Atherosclerosis of artery of both lower extremities (Acute) Venous stasis ulcer limited to breakdown of skin with varicose veins (Acute) PAD (peripheral artery disease) (Acute) Osteoarthritis, hip, bilateral (Acute) Limited mobility (Acute) Hard of hearing (Acute) Medical History Aortic stenosis Basal cell carcinoma (BCC) of back Basal cell carcinoma of skin of face Hood palsy Chronic back pain Dog bite, hand Gout History of vision disorder only peripheral vision in R eye 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 Internal carotid artery stenosis Left ICA stenosis Non-healing wound of right lower extremity secondary to dog bite in 2019 Pulmonary hypertension Scleroderma Type II diabetes mellitus Surgical History Cortical cataract of left eye History of excision of lesion (~04/2023) RLE-Dog bite wound re-excision History of local excision of skin lesion (~10/14/21) History of local excision of skin lesion (~01/19/22) Stoiber, right side chin, right lower leg trauma from dog bite 02/04/2020 Posterior subcapsular age-related cataract of left eye S/P angioplasty right femoral vein. 75% stenosis [facility] 02/10 Social History Smoking/Tobacco Use Status: Former Tobacco Use Quit Date: 11/21/79 Smoking risk assessment performed?: Yes Alcohol Intake: current Alcohol Intake frequency: holidays/special occasions only Drug use: Never Substance use type: does not use Housing: house Current gender identity: female Do you feel safe at home: Yes Do you feel safe in your relationship?: Yes
[2025-11-05] MEDS: Miconazole 2% Topical Powder 85 GM BTL (10:50)
--- NOTE | 2025-11-05 14:59 | W.PM.PROGNOT ---
Date of Service Date of service: 11/05/25 Time of Service: 08:00 Assessment and Plan Assessment and plan (1) Acute hypoxemic respiratory failure: Status: Acute Assessment and plan: Patient has significant hypoxemia without evidence of infection on imaging CTA for PE done after admission, no PE seen, no consolidation seen Echocardiogram not showing significant reduction in ventricular function, severe noted She required high flow oxygen on ICU admission Now on oxymask 8L, unable to tolerate HFNC in her nose PRN duonebs ICU stay (2) Symptomatic severe aortic stenosis with normal ejection fraction: Status: Acute Assessment and plan: Patient is accepted at [facility] for intervention She is DNR but would like procedure if it extends her life (3) Non-healing wound of lower extremity: Status: Acute Assessment and plan: Dog bite about 10 years ago Multiple surgeries, multiple infections Many years of care with Dr Jimenez (4) Peripheral vascular disease: Status: Chronic Assessment and plan: Previously on cilostazol, no longer on treatment Vascular surgery had planned stenting at some point, years ago Contributing factor in non-healing wound (5) Benign essential hypertension: Status: Chronic Assessment and plan: Continue home amlodipine, enalapril, metoprolol Subjective Subjective Interval history since last seen: Ms. Avila is comfortable in bed, requiring less O2 this morning. Awaiting [facility] transfer for new severe aortic stenosis. Exam Narrative Exam Narrative: General: This is a pleasant, elderly woman on high flow oxygen HEENT: Normocephalic, atraumatic. Hard of hearing. CV: RRR Resp: clear breath sounds bilaterally Abd: soft, NTND MSK: voluntary motion x4. Large dog bite wound on posterior upper right calf, erythematous, some discharge Neuro: awake, alert, no focal deficits Const General: cooperative, not healthy appearing, no acute distress, well developed and ill appearing acutely (SOB) and chronically (fatigued) Nutritional Appearance: average body habitus and well nourished Orientation: alert, awake and oriented x3 HENMT Head: normal to inspection Chest Chest: normal inspection of the chest, normal palpation of entire chest wall and no crepitus Resp Effort & Inspection: normal respiratory effort, able to speak in complete sentences, no cough, no respiratory distress and tachypneic Auscultation: clear to auscultation bilaterally, crackles bilaterally at the base and no wheezes Cardio Rate: regular rate Rhythm: regular rhythm Heart Sounds: murmur systolic at the right sternal border GI Inspection: normal to inspection, no edema and non-distended Palpation: soft and nontender Skin General skin exam: other (wound RLE) Neuro General: patient alert, patient awake and patient oriented x3 Cognition: normal cognition Speech: speech normal Extrem General: normal to inspection, capillary refill normal, no pedal edema and no calf tenderness Objective Last Vital Signs Temp 36.7 C 11/05/25 02:48 Pulse 58 L 11/05/25 12:01 Resp 19 11/05/25 12:01 BP 104/46 L 11/05/25 12:01 Pulse Ox 99 11/05/25 12:34 Laboratory Results - last 24 hr 11/04/25 11/05/25 11/05/25 08:07 05:11 05:39 WBC 22.05 H RBC 4.00 Hgb 11.6 Hct 36.8 MCV 92 MCH 29.0 MCHC 31.5 L RDW 17.2 H Plt Count 133 MPV 13.0 H Immature Gran % 0.0 Neutrophils % 66.0 Band Neutrophils % 2 Lymphocytes % 13.0 Atypical Lymphs % 2 Monocytes % 15.0 Eosinophils % 0.0 Basophils % 0.0 Metamyelocytes % 2 Nucleated RBC % 0.0 Absolute Neutrophils 14.99 H Absolute Lymphocytes 3.31 Absolute Monocytes 3.31 H Absolute Eosinophils 0.00 Absolute Basophils 0.00 RBC Morphology Normal VBG pH 7.36 VBG pCO2 47 VBG pO2 44 VBG HCO3 27 VBG Total CO2 25 VBG O2 Saturation 79 VBG Base Excess 1 Sodium 144 Potassium 3.8 Chloride 106 Carbon Dioxide 27.3 Anion Gap 10.7 BUN 22 Creatinine 0.95 Est GFR (CKD-EPI 2020) 55.39 Glucose 101 Calcium 9.3 Magnesium 1.8 Total Bilirubin 0.9 AST 19 ALT 12 Alkaline Phosphatase 59 Total Protein 6.3 Albumin 3.7 PAWSS Have you Been Recently Intoxicated or Drunk Within the Last 30 days?: No Have you Ever Experienced Previous Episodes of Alcohol Withdrawal?: No Have you ever Experienced Withdrawal Seizures?: No Have you ever Experienced Delirium Tremens(DT)s?: No Have you ever undergone Alcohol Rehabilitation Treatment (i.e, inpt ot outpatient treatment programs)?: No Have you ever Experienced Blackouts?: No Have you ever Combined Alcohol with other Downers within the last 90 days?: No Have you ever Combined Alcohol with any other Substance of Abuse during the last 90 days?: No Positive Blood Alcohol level on Presentation? [PCS.BAL]: No Evidence of Increased Autonomic Activity (i.e. HR>120, tremor, sweating, agitation, nausea)?: No Result: 0 VTE Prohylaxis Risk Level: Moderate/High Risk Contraindications: Other (expecting procedure within 24 hours) Prophylaxis: Mechanical Time Spent with Patient Time Spent with Patient: 25-34 minutes Time was spent: preparing to see the patient(eg.review tests), obtaining and/or reviewing separately otained hiistory, ordering medications,tests, procedures, referring, communicating with other health manager urgent care, indepentently interpreting results, counseling the patient and care coordination
--- NOTE | 2025-11-05 16:05 | CHAPLAIN ---
Neris was up in the chair visiting with her , Ze, when I stopped in. Neris was happy to tell me that she gets to eat tonight because she's not being transferred to [facility] until tomorrow. She said she's nervous about the procedure, but wants to get it over with. Neris and Ze live [place] and Ze was headed home for the evening. I'll take Neris a prayer shawl for her trip to [facility].
[2025-11-05] MEDS: Lactated Ringers 500 ML IV (18:01)
[2025-11-05] MEDS: Acetaminophen 325 MG TAB 650 MG PO (20:27)
[2025-11-06] VITALS (32 sets, daily range): BP systolic 85–137; BP diastolic 34–94; PULSE 56–89; RESP 14–28; TEMP 36.2–36.8; O2SAT 86–98
[2025-11-06] MEDS: Normal Saline 500 ML 250 ML IV (00:41)
[2025-11-06 07:19] LABS: Abs Immature Grans 1.66 10^3/uL (0.0-0.06); HCT 33.0 % (36.0-46.0); HGB 10.0 g/dL (11.2-15.7); MCH 28.3 pg (27.0-33.0); MCHC 30.3 % (32.0-36.0); MCV 94 fL (80-95); MPV 12.8 fL (8.0-11.0); Platelet Count 110 10^3/uL (130-400); RBC 3.53 10^6/uL (3.93-5.22); RDW 17.2 % (11.7-14.6); RDW-SD 57.1 fL; WBC 13.32 10^3/uL (4.4-10.8)
[2025-11-06 07:28] LABS: INR 1.1 (0.9-1.1); Prothrombin Time 11.2 sec (9.1-11.1)
[2025-11-06 07:45] LABS: Troponin I 10 ng/L (<35)
[2025-11-06 07:52] LABS: ALT 11 U/L (10-49); AST 17 U/L (<34); Albumin 3.2 g/dL (3.2-5.0); Alkaline Phosphatase 50 U/L (46-116); Anion Gap 10.1 mmol/L (3-11); BUN 26 mg/dL (9-23); Bilirubin, Total 0.5 mg/dL (0.2-1.2); CO2 27.9 mmol/L (20.0-31.0); Calcium 8.7 mg/dL (8.3-10.6); Chloride 108 mmol/L (98-107); Glucose 82 mg/dL (74-106); Potassium 3.9 mmol/L (3.5-5.1); Sodium 146 mmol/L (136-145); Total Protein 5.7 g/dL (5.7-8.2)
[2025-11-06 08:43] LABS: RBC Morphology Normal
[2025-11-06] MEDS: Enalapril 5 MG TAB 20 MG PO ×2 (09:23→20:59)
[2025-11-06] MEDS: amLODIPine 5 MG TAB PO (09:24)
[2025-11-06] MEDS: Allopurinol 300 MG TAB PO (09:24)
[2025-11-06] MEDS: Aspirin E.C. 81 MG TABEC PO (09:24)
[2025-11-06] MEDS: Rosuvastatin 10 MG TAB PO (09:24)
[2025-11-06] MEDS: Metoprolol 50 MG TAB 100 MG PO ×2 (09:24→20:58)
[2025-11-06] MEDS: Normal Saline Flush 10 ML SYR IVP ×2 (09:24→23:16)
[2025-11-06] MEDS: Lactated Ringers 500 ML IV (14:21)
--- NOTE | 2025-11-06 15:05 | W.PM.PROGNOT ---
Date of Service Date of service: 11/06/25 Time of Service: 08:00 Assessment and Plan Assessment and plan (1) Acute hypoxemic respiratory failure: Status: Acute Assessment and plan: Patient has significant hypoxemia without evidence of infection on imaging CTA for PE done after admission, no PE seen, no consolidation seen Echocardiogram not showing significant reduction in ventricular function, severe noted She required high flow oxygen on ICU admission Transitioned to oxymask 8L -> 4L Unable to tolerate HFNC PRN duonebs Continue ICU stay (2) Symptomatic severe aortic stenosis with normal ejection fraction: Status: Acute Assessment and plan: Patient is accepted at [facility] for intervention She is DNR but would like procedure if it extends her life (3) Non-healing wound of lower extremity: Status: Acute Assessment and plan: Dog bite about 10 years ago Multiple surgeries, multiple infections Many years of care with Dr Jimenez (4) Peripheral vascular disease: Status: Chronic Assessment and plan: Previously on cilostazol, no longer on treatment Vascular surgery had planned stenting at some point, years ago Contributing factor in non-healing wound (5) Benign essential hypertension: Status: Chronic Assessment and plan: Continue home amlodipine, enalapril, metoprolol Subjective Subjective Interval history since last seen: Ms. Avila is comfortable on bed. Requiring less O2, now on 4L. Awaiting [facility] transfer, likely Nov 07. Exam Narrative Exam Narrative: General: This is a pleasant, elderly woman on high flow oxygen HEENT: Normocephalic, atraumatic. Hard of hearing. CV: RRR Resp: clear breath sounds bilaterally Abd: soft, NTND MSK: voluntary motion x4. Large chronic wound on posterior upper right calf, erythematous, some discharge Neuro: awake, alert, no focal deficits Objective Last Vital Signs Temp 36.4 C L 11/06/25 09:54 Pulse 75 11/06/25 12:02 Resp 28 H 11/06/25 12:02 BP 109/52 L 11/06/25 12:02 Pulse Ox 97 11/06/25 12:02 Laboratory Results - last 24 hr 11/06/25 05:37 WBC 13.32 H RBC 3.53 L Hgb 10.0 L Hct 33.0 L MCV 94 MCH 28.3 MCHC 30.3 L RDW 17.2 H Plt Count 110 L MPV 12.8 H Immature Gran % See Differential Neutrophils % 68.0 Band Neutrophils % 1 Lymphocytes % 14.0 Monocytes % 14.0 Eosinophils % 0.0 Basophils % 0.0 Metamyelocytes % 3 Nucleated RBC % 0.4 H Absolute Neutrophils 9.19 H Absolute Lymphocytes 1.86 Absolute Monocytes 1.86 H Absolute Eosinophils 0.00 Absolute Basophils 0.00 RBC Morphology Normal PT 11.2 H INR 1.1 Sodium 146 H Potassium 3.9 Chloride 108 H Carbon Dioxide 27.9 Anion Gap 10.1 BUN 26 H Creatinine 1.11 H Est GFR (CKD-EPI 2020) 46.28 Glucose 82 Calcium 8.7 Total Bilirubin 0.5 AST 17 ALT 11 Alkaline Phosphatase 50 Troponin I 10 Total Protein 5.7 Albumin 3.2 PAWSS Have you Been Recently Intoxicated or Drunk Within the Last 30 days?: No Have you Ever Experienced Previous Episodes of Alcohol Withdrawal?: No Have you ever Experienced Withdrawal Seizures?: No Have you ever Experienced Delirium Tremens(DT)s?: No Have you ever undergone Alcohol Rehabilitation Treatment (i.e, inpt ot outpatient treatment programs)?: No Have you ever Experienced Blackouts?: No Have you ever Combined Alcohol with other Downers within the last 90 days?: No Have you ever Combined Alcohol with any other Substance of Abuse during the last 90 days?: No Positive Blood Alcohol level on Presentation? [PCS.BAL]: No Evidence of Increased Autonomic Activity (i.e. HR>120, tremor, sweating, agitation, nausea)?: No Result: 0 VTE Prohylaxis Risk Level: Moderate/High Risk Contraindications: Other (expecting procedure within 24 hours) Prophylaxis: Mechanical Time Spent with Patient Time Spent with Patient: 25-34 minutes Time was spent: preparing to see the patient(eg.review tests), obtaining and/or reviewing separately otained hiistory, ordering medications,tests, procedures, referring, communicating with other health day care director, indepentently interpreting results, counseling the patient and care coordination
--- NOTE | 2025-11-06 17:02 | CMPROGNOTE_ITS ---
Date of service: 11/06/25 Time of Service: 11:00 Care Management Progress Note Progress Note Text Progress Note Text: Neris was sitting up in the bed when CM met with her today. She remains in good spirits. She continues to require nc O2. She is confused at times, but is easily redirected. She is waiting for a bed at [facility], and has good memories of that hospital. Later in the day, CM saw Neris's and son in the hallway. They were very pleasant with CM, and denied and concerns. Discharge Potential Discharge Needs: Other ([facility] transfer) Anticipated Barriers to Discharge: Bed availability Patient/Family Education Needs: Review discharge instructions, discuss Ask Me Three Transportation: EMS Plan: Neris is accepted for transfer at [facility] pending bed availability. She will transport via EMS. CM will continue to follow. Social Determinants of Health Screening Social Determinants of health last assessed in clinic: 11/06/25 Will the Patient Participate in the Screening?: Yes Do you worry about having a steady place to live?: no Problems where you live: no known problems In the past 12 months, have you had to go without electric, gas, oil or water in your home?: no 1. Within the past 12 months, we worried whether our food would run out before we got money to buy more.: Don't know/refused 2. Within the past 12 months, the food we bought just didn't last and we didn't have money to get more.: Don't know/refused Has lack of transportation kept you from medical appointments or from doing things needed for daily living?: no Has anyone in your life made you feel unsafe or unsupported?: no How hard is it for you to pay for the very basics like food, housing, medical care, and heating? Would you say it is:: Not hard at all Do you want help finding or keeping work or a job?: I do not need or want help If for any reason you need help with day-to-day activities such as bathing, preparing meals, shopping, managing finances, etc., do you get the help you need?: I don?t need any help How often do you feel lonely or isolated from those around you?: Never Do you speak a language other than [place]alese at home?: No
[2025-11-07] VITALS (27 sets, daily range): BP systolic 104–140; BP diastolic 41–86; PULSE 54–85; RESP 16–34; TEMP 36.5–36.9; O2SAT 89–98
[2025-11-07 07:53] LABS: INR 1.1 (0.9-1.1); Prothrombin Time 10.8 sec (9.1-11.1)
--- NOTE | 2025-11-07 08:30 | PDOC.CMPRO ---
Care Management Progress Note Progress Note Text Progress Note Text: Transfer to [facility] is pending bed availability. Social Determinants of Health Screening Social Determinants of health last assessed in clinic: 11/06/25 Will the Patient Participate in the Screening?: Yes Do you worry about having a steady place to live?: no Problems where you live: no known problems In the past 12 months, have you had to go without electric, gas, oil or water in your home?: no Has lack of transportation kept you from medical appointments or from doing things needed for daily living?: no Has anyone in your life made you feel unsafe or unsupported?: no How hard is it for you to pay for the very basics like food, housing, medical care, and heating? Would you say it is:: Not hard at all Do you want help finding or keeping work or a job?: I do not need or want help If for any reason you need help with day-to-day activities such as bathing, preparing meals, shopping, managing finances, etc., do you get the help you need?: I don?t need any help How often do you feel lonely or isolated from those around you?: Never Do you speak a language other than Korean at home?: No
[2025-11-07] MEDS: Normal Saline Flush 10 ML SYR IVP (08:36)
[2025-11-07] MEDS: Enalapril 5 MG TAB 20 MG PO (08:36)
[2025-11-07] MEDS: Metoprolol 50 MG TAB 100 MG PO (08:37)
[2025-11-07] MEDS: Rosuvastatin 10 MG TAB PO (08:37)
[2025-11-07] MEDS: Allopurinol 300 MG TAB PO (08:38)
[2025-11-07] MEDS: amLODIPine 5 MG TAB PO (08:38)
[2025-11-07] MEDS: Aspirin E.C. 81 MG TABEC PO (08:39)
[2025-11-07 09:50] LABS: Anion Gap 8.3 mmol/L (3-11); BUN 23 mg/dL (9-23); CO2 27.7 mmol/L (20.0-31.0); Calcium 8.8 mg/dL (8.3-10.6); Chloride 108 mmol/L (98-107); Glucose 97 mg/dL (74-106); Potassium 4.1 mmol/L (3.5-5.1); Sodium 144 mmol/L (136-145)
--- NOTE | 2025-11-07 11:33 | W.PM.DS.N ---
Date of service: 11/07/25 Time of Service: 08:00 DS: Diagnosis Discharge Diagnosis (1) Acute hypoxemic respiratory failure: Status: Acute Asessment and Plan: Patient has significant hypoxemia without evidence of infection on imaging CTA for PE done after admission, no PE seen, no consolidation seen Echocardiogram not showing significant reduction in ventricular function, severe noted She required high flow oxygen on ICU admission Transitioned to oxymask 8L -> 4L Unable to tolerate HFNC PRN duonewilmer (2) Symptomatic severe aortic stenosis with normal ejection fraction: Status: Acute Asessment and Plan: [place] [facility] [place] She is DNR but would like procedure if it extends her life (3) Non-healing wound of lower extremity: Status: Acute Asessment and Plan: Dog bite about 10 years ago Multiple surgeries, multiple infections Many years of care with Dr Jimenez, general surgery, who has since left practice She stopped going to wound clinic because of transportation logistics (4) Peripheral vascular disease: Status: Chronic Asessment and Plan: Previously on cilostazol, no longer on treatment Vascular surgery had planned stenting at some point, years ago Contributing factor in non-healing wound (5) Benign essential hypertension: Status: Chronic Asessment and Plan: Continue home amlodipine, enalapril, metoprolol Discharge Plan Disposition Patient Disposition: Transfer-Acute Inpatient Care Specific Acute Inpt Facility: [facility] Anticipated Discharge Date/Time: 11/07/25 11:28 Condition: Stable Discharge Details Reason For Visit: Aortic Stenosis Admit Date/Time: 11/04/25 13:25 Admit Provider: Antoni Jaramillo Attending Provider: Antoni Jaramillo [facility]: Neris Avila is an 89 year old woman presenting November 04 with shortness of breath worsening for several months. Patient reports she has been using her regular inhaler but it hasn't been helping. Normally she feels better after sitting down, but not today. She also reports fatigue and loss of appetite for 1-2 weeks. She is also concerned about a wound on her right lower leg, a 10 year old dog bite that has not healed despite years of interventions; she stopped seeking help for it 2 years ago due to being overwhelmed with all the doctors appointments. She is aware that she has had a noisy valve but does not recall seeing a sleeping room cleaner. No chest pain, no abdominal pain, no N/V/D. Patient is DNR/DNI. She is very clear that she does not want to be resuscitated if her heart stops or if she requires invasive ventilation. She wants to in her sleep. In the ED, SpO2 67% on room air. She was started on NRB with good response, SpO2 95%. BP 196/69, vitals otherwise unremarkable. EKG without evidence of occlusion. CXR suggestive of CHF. Leukocytosis 24.78. Elevated INR 1.2. Mildly elevated creatinine 1.09. BNP 62453. Echocardiogram done, initial concern for severe . She was given furosemide. Case was discussed with [facility] [place], and she is accepted to their care by Dr Hoffmann pending a bed. 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 Peripheral vascular disease. Aortic stenosis. HTN, Hard of hearing. After admission, cardiac monitoring identified no new defects. Patient was initially requiring high flow oxygen but was not able to tolerate the cannula; since transitioning to oxymask she has been on 4-8L. She has been comfortable and delightful. She last ate at approximately 0830 on Nov 07. Home Meds and New Rx's Prescriptions: Continued rosuvastatin 10 mg tablet 10 mg PO DAILY multivitamin 1 EACH tablet 1 tab PO DIRECTED metoprolol tartrate 100 MG tablet 100 mg PO BID enalapril maleate 20 MG tablet 20 mg PO BID amlodipine 5 MG tablet 5 mg PO DAILY aspirin [Lo-Dose Aspirin] 81 MG tablet,delayed release (DR/EC) 81 mg PO DIRECTED ascorbic acid (vitamin C) [Vitamin C] 1,000 MG tablet 500 mg PO DAILY PreserVision AREDS-2 250-90-40-1 mg capsule 2 tab PO DAILY albuterol sulfate [Ventolin HFA] 90 mcg/actuation HFA aerosol inhaler 2 puff INHALATION Q4H PRN Patient Comments: INHALE 2 PUFFS BY MOUTH EVERY 4 HOURS NEEDED FOR WHEEZING. USE WITH SPACER CHAMBER allopurinol 300 mg tablet 300 mg PO DAILY Patient Comments: TAKE 1 TABLET BY MOUTH ONCE DAILY Discharge Instructions Instructions: Aortic stenosis Activity:: assisted bed to chair Equipment/Supplies:: No Equipment Needed Diet:: As Tolerated DS: Summary Time Spent with Patient providing and/or coordinating discharge services: Greater than 30 minutes Status at Discharge Functional status at discharge: independent ambulation Overall status at discharge: patient is not back to baseline Mental Status: mental status grossly normal Speech and Movement: speech and movement normal Mood: congruent mood Affect: normal affect Exam Narrative Exam Narrative: General: This is a pleasant, elderly woman on high flow oxygen HEENT: Normocephalic, atraumatic. Hard of hearing. CV: RRR Resp: clear breath sounds bilaterally Abd: soft, NTND MSK: voluntary motion x4. Large chronic wound on posterior upper right calf, erythematous, some discharge Neuro: awake, alert, no focal deficits Psych Mental Status: mental status grossly normal Speech and Movement: speech and movement normal Mood: congruent mood Affect: normal affect DS: Data Vitals/I&O Vitals and I&O: Vital Signs Temperature 36.9 C 11/07/25 08:29 Temperature Source Temporal Artery Scan 11/07/25 08:29 Pulse 57 L 11/07/25 10:01 Pulse 63 11/07/25 10:01 Respiratory Rate 17 11/07/25 10:01 Respiratory Effort Non-Labored 11/04/25 14:54 Respiratory Depth Normal 11/04/25 14:54 Respiratory Pattern Normal 11/04/25 14:54 Blood Pressure 104/41 L 11/07/25 10:01 Blood Pressure Mean 60 11/07/25 10:01 Blood Pressure Position Supine 11/04/25 14:54 Pulse Oximetry 95 11/07/25 10:01 Oxygen Delivery Method Nasal Cannula 11/07/25 08:56 Oxygen Flow Rate 3 11/07/25 08:56 Fraction of Inspired Oxygen (FIO2) 70 11/04/25 15:46 Pain Level 0 11/04/25 20:00 Comment 36.2 C 11/06/25 16:41 Intake & Output 11/06/25 11/06/25 11/07/25 11:59 23:59 11:59 Intake Total 520 / 1020 500 / 1020 Output Total 340 / 690 350 / 690 75 / 75 Balance 180 / 330 150 / 330 -75 / -75 Weight 68.4 kg 68.4 kg Intake: IV 520 / 1020 500 / 1020 Output: Urine 340 / 690 350 / 690 75 / 75 Other: Urine Color Dark Angelita Light Angelita Yellow Urine Appearance Clear Clear Clear Data Completed and Pending Pending Labs at Discharge: 11/04/25 11/04/25 11/04/25 08:07 08:21 09:41 WBC 24.78 H RBC 3.93 Hgb 11.3 Hct 35.8 L MCV 91 MCH 28.8 MCHC 31.6 L RDW 17.3 H Plt Count 144 MPV 12.4 H Immature Gran % 0.0 Neutrophils % 60.0 Band Neutrophils % 6 Lymphocytes % 16.0 Atypical Lymphs % Monocytes % 8.0 Eosinophils % 0.0 Basophils % 0.0 Metamyelocytes % 6 Myelocytes % 4 Nucleated RBC % 2.0 H Absolute Neutrophils 16.35 H Absolute Lymphocytes 3.96 H Absolute Monocytes 1.98 H Absolute Eosinophils 0.00 Absolute Basophils 0.00 RBC Morphology See Below Polychromasia Present Hypochromasia 1+ Anisocytosis 2+ Microcytosis 1+ PT 11.4 H INR 1.2 H APTT 28.8 VBG pH 7.36 VBG pCO2 47 VBG pO2 44 VBG HCO3 27 VBG Total CO2 25 VBG O2 Saturation 79 VBG Base Excess 1 VBG Lactate 1.0 Sodium 142 Potassium 4.1 Chloride 106 Carbon Dioxide 24.7 Anion Gap 11.3 H BUN 26 H Creatinine 1.09 H Est GFR (CKD-EPI 2020) 47.26 Glucose 125 H Calcium 9.6 Magnesium 1.9 Total Bilirubin 1.1 AST 18 ALT 11 Alkaline Phosphatase 64 Troponin I 14 15 NT-Pro-B Natriuret Pep 16170 H Total Protein 6.9 Albumin 4.1 TSH 2.22 COVID-19 Source SARS-CoV-2 (PCR) Influenza Type A (PCR) Influenza Type B (PCR) RSV (PCR) 11/04/25 11/04/25 11/05/25 11:10 11:15 05:11 WBC 22.05 H RBC 4.00 Hgb 11.6 Hct 36.8 MCV 92 MCH 29.0 MCHC 31.5 L RDW 17.2 H Plt Count 133 MPV 13.0 H Immature Gran % 0.0 Neutrophils % 66.0 Band Neutrophils % 2 Lymphocytes % 13.0 Atypical Lymphs % 2 Monocytes % 15.0 Eosinophils % 0.0 Basophils % 0.0 Metamyelocytes % 2 Myelocytes % Nucleated RBC % 0.0 Absolute Neutrophils 14.99 H Absolute Lymphocytes 3.31 Absolute Monocytes 3.31 H Absolute Eosinophils 0.00 Absolute Basophils 0.00 RBC Morphology Normal Polychromasia Hypochromasia Anisocytosis Microcytosis PT INR APTT VBG pH VBG pCO2 VBG pO2 VBG HCO3 VBG Total CO2 VBG O2 Saturation VBG Base Excess VBG Lactate Sodium Potassium Chloride Carbon Dioxide Anion Gap BUN Creatinine Est GFR (CKD-EPI 2020) Glucose Calcium Magnesium Total Bilirubin AST ALT Alkaline Phosphatase Troponin I 14 NT-Pro-B Natriuret Pep Total Protein Albumin TSH COVID-19 Source Nasopharynx SARS-CoV-2 (PCR) Negative Influenza Type A (PCR) Negative Influenza Type B (PCR) Negative RSV (PCR) Negative 11/05/25 11/06/25 11/07/25 05:39 05:37 05:42 WBC 13.32 H Pending RBC 3.53 L Pending Hgb 10.0 L Pending Hct 33.0 L Pending MCV 94 Pending MCH 28.3 Pending MCHC 30.3 L Pending RDW 17.2 H Pending Plt Count 110 L Pending MPV 12.8 H Pending Immature Gran % See Differential Neutrophils % 68.0 Band Neutrophils % 1 Lymphocytes % 14.0 Atypical Lymphs % Monocytes % 14.0 Eosinophils % 0.0 Basophils % 0.0 Metamyelocytes % 3 Myelocytes % Nucleated RBC % 0.4 H Absolute Neutrophils 9.19 H Absolute Lymphocytes 1.86 Absolute Monocytes 1.86 H Absolute Eosinophils 0.00 Absolute Basophils 0.00 RBC Morphology Normal Polychromasia Hypochromasia Anisocytosis Microcytosis PT 11.2 H 10.8 INR 1.1 1.1 APTT VBG pH VBG pCO2 VBG pO2 VBG HCO3 VBG Total CO2 VBG O2 Saturation VBG Base Excess VBG Lactate Sodium 144 146 H 144 Potassium 3.8 3.9 4.1 Chloride 106 108 H 108 H Carbon Dioxide 27.3 27.9 27.7 Anion Gap 10.7 10.1 8.3 BUN 22 26 H 23 Creatinine 0.95 1.11 H 0.88 Est GFR (CKD-EPI 2020) 55.39 46.28 62.78 Glucose 101 82 97 Calcium 9.3 8.7 8.8 Magnesium 1.8 Total Bilirubin 0.9 0.5 AST 19 17 ALT 12 11 Alkaline Phosphatase 59 50 Troponin I 10 NT-Pro-B Natriuret Pep Total Protein 6.3 5.7 Albumin 3.7 3.2 TSH COVID-19 Source SARS-CoV-2 (PCR) Influenza Type A (PCR) Influenza Type B (PCR) RSV (PCR) [facility] All Active Problems (Updated 11/04/25 @ 18:06 by Antoni Jaramillo MD) Benign essential hypertension (Chronic) Peripheral vascular disease (Chronic) Acute hypoxemic respiratory failure (Acute) Symptomatic severe aortic stenosis with normal ejection fraction (Acute) Hypoxia (Acute) Aortic stenosis (Chronic) Breath shortness (Acute) Chronic wound (Acute) Femoral artery stenosis, 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 no stent. ASA daily Locking finger joint (Acute) Swelling of finger joint of right hand (Acute) Pain in finger of right hand (Acute) Non-healing wound of lower extremity (Acute) HTN (hypertension) (Chronic) Hx of smoking (Acute) Elevated serum creatinine (Acute) Venous insufficiency of both lower extremities (Acute) Atherosclerosis of artery of both lower extremities (Acute) Venous stasis ulcer limited to breakdown of skin with varicose veins (Acute) PAD (peripheral artery disease) (Acute) Osteoarthritis, hip, bilateral (Acute) Limited mobility (Acute) Hard of hearing (Acute) Medical History Aortic stenosis Basal cell carcinoma (BCC) of back Basal cell carcinoma of skin of face Hood palsy Chronic back pain Dog bite, hand Gout History of vision disorder only peripheral vision in R eye 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 Internal carotid artery stenosis Left ICA stenosis Non-healing wound of right lower extremity secondary to dog bite in 2019 Pulmonary hypertension Scleroderma Type II diabetes mellitus Surgical History Cortical cataract of left eye History of excision of lesion (~04/2023) RLE-Dog bite wound re-excision History of local excision of skin lesion (~10/14/21) History of local excision of skin lesion (~01/19/22) Stoiber, right side chin, right lower leg trauma from dog bite 02/04/2020 Posterior subcapsular age-related cataract of left eye S/P angioplasty right femoral vein. 75% stenosis [facility] [place] Social History Smoking/Tobacco Use Status: Former Tobacco Use Quit Date: 11/21/79 Smoking risk assessment performed?: Yes Alcohol Intake: current Alcohol Intake frequency: holidays/special occasions only Drug use: Never Substance use type: does not use Housing: house Current gender identity: female Do you feel safe at home: Yes Do you feel safe in your relationship?: Yes Time Spent with Patient Time Spent with Patient: 45-69 minutes Time was spent: preparing to see the patient(eg.review tests), obtaining and/or reviewing separately otained hiistory, ordering medications,tests, procedures, referring, communicating with other health direct support professional caregiver, indepentently interpreting results, counseling the patient and care coordination
--- NOTE | 2025-11-07 11:56 | CMDISCH_ITS ---
Date of service: 11/07/25 Time of Service: 11:56 LACE Index Scoring Tool Questions: Length of Stay (in days): 3 Was the patient admitted via the E.D.?: Yes Comorbidities: PVD E.D. Visits: 1 Answers: Total Score: 8 Risk of Readmission: Low Risk Care Management Discharge Plan Reason for Hospitalization: Aortic stenosis Discharge Plan: Neris received a bed offer and is being transferred to [facility] Cardiology via EMS. Patient/Family Education Needs: Review transfer information, discuss ask me three. Services Needed at Discharge: Transportation (Coordinated by RN supervisor broadloom)
[2025-11-07 13:46] LABS: HCT 35.4 % (36.0-46.0); HGB 10.8 g/dL (11.2-15.7); MCH 28.6 pg (27.0-33.0); MCHC 30.5 % (32.0-36.0); MCV 94 fL (80-95); Platelet Count 128 10^3/uL (130-400); RBC 3.78 10^6/uL (3.93-5.22); RDW 17.0 % (11.7-14.6); RDW-SD 57.3 fL; WBC 13.04 10^3/uL (4.4-10.8)
[2025-11-07 13:47] LABS: MPV 13.0 fL (8.0-11.0)
== END 2025-11-07 13:05 | disposition short-term general hospital (02) | DRG 306 ==
LOC: ER 09:45 → ICU 14:40
PROVIDERS: Admitting Provider Family Medicine; Emergency Provider Physician Assistant; PCP Nurse Practitioner Family; Responsible Provider Family Medicine; Visit Provider Family Medicine
DX: J96.01 Acute respiratory failure with hypoxia (principal); I35.0 Nonrheumatic aortic (valve) stenosis; Z66 Do not resuscitate; I73.9 Peripheral vascular disease, unspecified; I10 Essential (primary) hypertension; Z79.899 Other long term (current) drug therapy; D72.829 Elevated white blood cell count, unspecified; I87.2 Venous insufficiency (chronic) (peripheral); Z87.891 Personal history of nicotine dependence; S81.851D Open bite, right lower leg, subsequent encounter; W54.0XXD Bitten by dog, subsequent encounter
CPT/HCPCS: 00123; 36415; 51702; 71275; 80048; 80053; 82805; 85027; 87637; 93005; 93308; 96374; 99285; 71045; 83605; 83735; 83880; 84443; 84484; 85025; 85610; 85730; 93010; 93306; 94760; 99222; 99231; 99239; J1938; J3490